=== PATIENT | male | born 1960 | race Caucasian/White ===

== ENCOUNTER 2016-05-10 01:16 | Inpatient (IN) | payer OTHER, MEDICAID ==
[~2016-05-10] VITALS: Ht 170.2 cm; Wt 90.7 kg
[2016-05-10 01:16] VITALS: BP 117/71
[~2016-05-10 01:16] MED LIST: ACETAMINOPHEN650 M6 GT; ATIVAN0.5 MG GT; ATIVAN1 MG GT; CLINDAMYCIN PHO TP; DIAMOX250 MG GT; DITROPAN5 MG GT; DULCOLAX10 MG RC; FLEET ENEMA118 ML RC; MULTIVITAMIN1 TA1 GT; NEXIUM40 MG GT; PROTONIX40 MG GT; SYNTHROID0.05 MG GT; VITAMIN C500 M8 GT; VITAMIN D32000 I1 GT; ZOFRAN ODT4 MG GT; [UNRECOGNIZED DRUG - OTHER] TP
--- NOTE | 2016-05-10 01:16 | NUR ---
DONTA DASILVA. TAKEN TO BED 2. BOARD AND CARE STAFF MEMBER AT PATIENT BEDSIDE.
[2016-05-10] MEDS ORDERED: ACETAMINOPHEN 160 MG/5 ML UDC ONE (01:27)
--- NOTE | 2016-05-10 01:31 | NUR ---
PATIENT KIRBY FROM [facility] PRESENTS TO ED WITH FEVER OF 103.1 AND LABORED BREATHING . PT CAREGIVER STATES HE FOUND PT IN ROOM WITH LABORED BREATHING AND FEVER BUT GAVE NO MEDS . DENIES N/V/D; SKIN IS PINK/WARM/DRY; AAOX4 WITH EVEN AND STEADY GAIT; LUNGS CLEAR BL AND BREATHING LABORED; HR EVEN AND REGULAR; PT DENIES ANY FEVER, CP, SOB, OR COUGH AT THIS TIME; PATIENT EXHIBITING PAIN OF 0/10 AT THIS TIME USING PIMENTEL-HERNANDEZ SCALE; VSS; PATIENT POSITIONED FOR COMFORT; HOB ELEVATED; BEDRAILS UP X2; BED DOWN. ER MD MADE AWARE OF PT STATUS. CAREGIVER AT BEDSIDE
--- NOTE | 2016-05-10 01:33 | NUR ---
Dr. Gonsales evaluating patient at bedside.
[2016-05-10] MEDS ORDERED: LEVOFLOXACIN 500 MG/D5W PREMIX 100 ML IV ONE (01:45)
[2016-05-10] MEDS ORDERED: NACL 0.9% 1,000 ML IV ONE ×2 (01:45→02:30)
--- NOTE | 2016-05-10 02:11 | NUR ---
X-Ray at bedside.
[2016-05-10] MEDS ORDERED: cefTRIAXone 1,000 MG VIAL ONE (02:25)
--- NOTE | 2016-05-10 03:21 | NUR ---
Patient appears to be resting comfortably in bed. Vital Signs within normal limits. Respirations even and unlabored.
[2016-05-10] MEDS ORDERED: NACL 0.9% 1,000 ML IV SCH ×3 (05:42→09:20)
[2016-05-10] MEDS ORDERED: NACL 0.9% 1,500 ML IV SCH (05:45)
[2016-05-10] MEDS ORDERED: HYDROcodone/APAP 5/325 MG 1 TAB TAB GT PRN (05:45)
[2016-05-10] MEDS ORDERED: BISACODYL 10 MG SUPP RC PRN (05:45)
[2016-05-10] MEDS ORDERED: SODIUM PHOSPHATE 118 ML ENEM RC PRN (05:45)
[2016-05-10] MEDS ORDERED: ONDANSETRON 4 MG/2 ML VIAL IVP PRN (05:45)
--- NOTE | 2016-05-10 06:04 | NUR ---
SPOKE WITH BLANCA PURDY AT PT BOARD AND CARE. INDIVIDUAL STATED THAT PT IS A FULL CODE. NOTIFIED ME THAT PT IS PASSING STONES AT THIS TIME. HELADIO NOTIFIED.
--- NOTE | 2016-05-10 06:08 | NUR ---
Patient will be admitted to care of DR. YAO. Admited to TELE. Will go to room 118. Belongings list completed. Report to CHRIS MUNOZ.
--- NOTE | 2016-05-10 07:00 | NUR ---
PT HEARD GRUNTING IN ROOM. O2 SATS FLUCTUATING FROM 77% AND GOES BACK UP TO 100%. ERMD NOTIFIED. ABG'S ORDERED AND ERMD TO SEE PT.
--- NOTE | 2016-05-10 07:03 | NUR ---
RT AT PT BEDSIDE
--- NOTE | 2016-05-10 07:14 | NUR ---
X-Ray at bedside.
--- NOTE | 2016-05-10 07:16 | NUR ---
VS STABALIZED. Patient appears to be resting comfortably in bed. Respirations even and unlabored.
--- NOTE | 2016-05-10 07:17 | NUR ---
RT AT BEDSIDE.
--- NOTE | 2016-05-10 07:17 | NUR ---
Pt report given to CHRIS MARTIN. Transfer of care at this time.
[2016-05-10 07:21] VITALS: BP 107/85
--- NOTE | 2016-05-10 07:21 | NUR ---
PT PLACED ON BIPAP BY REQUEST OF ER PHYSICIAN. BIPAP SETTINGS 12/5, R12 AND FIO2 40%. PROTECTA-GEL PLACED UNDER MASK TO PREVENT SKIN BREAKDOWN. BIPAP ALARM ARE ON AND FUNCTIONING. AMBU BAG IS BEDSIDE. PT TOLERATING WELL AT THIS TIME. WILL CONTINUE TO MONITOR.
--- NOTE | 2016-05-10 07:37 | NUR ---
GAVE REPORT TO CURTIS PEREZ, ON UPDATED VS & BIPAP SETTINGS. PT STABLE AT THIS TIME.
--- NOTE | 2016-05-10 07:39 | NUR ---
Patient will be admitted to care of DR. LOGAN. Admited to TELEMETRY. Will go to room 123. Belongings list completed. Report to CHRIS ACEVEDO.
--- NOTE | 2016-05-10 08:00 | NUR ---
RECEIVED REPORT FROM THE SHANK TURNER NURSE, WHO RECEIVED REPORT FROM THE ER NURSE. PT IS NOW ON THE MST FLOOR. PT IS AOX0. PT IS A WHITE 55Y/O MALE. PT IS AWAKE, NOT ORIENTED AND NOT VERBAL. HX OF MR. V/S WITHIN NORMAL RANGE. PT HAS 2 IV SITES L HAND 22G SL AND R HAND 18G SL. CHECKED HIS SKIN, SKIN INTACT. PLACED TELE BOX ON. NOTED THE GTUBE. AND A GILL CATH. PLACED YELLOW SOCKS, AND PLACED ALLERGY BAND AND FALL RISK BAND. UPDATED BOARD. RESPIRATORY THERAPIST IS HERE, TO MONITOR BI PAP. DR. LOGAN ORDERED ANOTHER L OF NS BOLUS. I USED THE R HAND FOR THE FLUIDS. NOTHING ELSE IN THE ORDERS. WILL CONTINUE TO MONITOR PT AND CONTINUE ADMISSION PROCESS.
[2016-05-10 09:00] VITALS: BP 126/60
[2016-05-10] MEDS ORDERED: NON-FORMULARY ITEM (Cholecalciferol (Vitamin D3) (Vitamin D3) 2,000 IU) GT SCH (09:00)
[2016-05-10] MEDS ORDERED: NON-FORMULARY ITEM (Esomeprazole Magnesium* (Nexium*) 40 MG) GT SCH (09:00)
[2016-05-10] MEDS ORDERED: PANTOPRAZOLE 40 MG TABEC PO SCH (09:00)
[2016-05-10] MEDS: NACL 0.9% 1,000 ML IV SCH ×3 (09:20→23:42)
--- NOTE | 2016-05-10 09:25 | NUR ---
RADIOLOGY TOOK PT TO HAVE CT OF ABD/PELVIS. TICKET TO RIDE IN CHART.
--- NOTE | 2016-05-10 10:01 | NUR ---
PT RETURNED FROM CT WITHOUT INCIDENT, PT PLACED BACK ON BIPAP WITH DOCUMENTED SETTINGS. PT NOT SOB AT THIS TIME. BIPAP ALARMS REMAIN ON AND FUNCTIONING. BIPAP IS PLUGGED INTO RED OUTLET. WILL CONTINUE TO MONITOR.
[2016-05-10] MEDS: ASCORBIC ACID 500 MG TAB GT SCH (10:02)
[2016-05-10] MEDS: CHOLECALCIFEROL 1,000 IU TAB GT SCH (10:02)
[2016-05-10] MEDS: OXYBUTYNIN 5 MG TAB GT SCH (10:03)
[2016-05-10] MEDS: LANSOPRAZOLE 30 MG CAPDR GT SCH (10:03)
[2016-05-10] MEDS: LORazepam 0.5 MG TAB GT SCH (10:03)
[2016-05-10] MEDS: LEVOTHYROXINE 0.05 MG TAB GT SCH (10:03)
[2016-05-10] MEDS: acetaZOLAMIDE 250 MG TAB GT SCH ×2 (10:06→20:20)
[2016-05-10] MEDS: ACETAMINOPHEN 325 MG TAB GT PRN ×2 (10:06→20:20)
--- NOTE | 2016-05-10 10:30 | NUR ---
CAREGIVER IS HERE. PAGED DR. LOGAN TO LET HIM KNOW SHE IS HERE TO GIVE HIM MORE INFORMATION.
--- NOTE | 2016-05-10 11:19 | NUR ---
BIPAP CHECK COMPLETED. PT NOT IN ANY DISTRESS. WILL CONTINUE TO MONITOR.
[2016-05-10 12:00] VITALS: BP 94/51
--- NOTE | 2016-05-10 12:00 | NUR ---
PT IS SLEEPING BUT WITH IS L HAND, TRYING TO TAKE HIS BIPAP OFF. PUT A SOCK ON HIS HAND. NOT WORKING. TRIED PUTTING HIS HAND AND WRAPPING IT AROUND WITH HIS SHEETS.. NOT WORKING. PLACED A SOFT MITTEN. HE IS DOING BETTER.
--- NOTE | 2016-05-10 14:11 | NUR ---
PT'S CAREGIVER HERE, CAN SIGN THE CONSENT FOR STAT NEPHROSTOMY TUBE PLACEMENT. CONSENT PRINTED AND SIGNED BY CAREGIVER. WILL KEEP IN CHART FOR TO SIGN.
--- NOTE | 2016-05-10 14:23 | NUR ---
ERIN FROM RADIOLOGY CALLED. PROCEDURE TO BE DONE AROUND 5PM BY DR. ARTHUR TINAJERO, RADIOLOGIST. ASKED ABOUT PT, INR, PTT. DONE ALREADY IN CHART. WILL CONTINUE TO MONITORING HIM. CAREGIVER AT BEDSIDE.
[2016-05-10] MEDS ORDERED: ALBUTEROL SULFATE/IPRATROPIU 3 ML SOL IH PRN (14:55)
[2016-05-10] MEDS ORDERED: LORazepam 2 MG/ML VIAL IVP SCH (15:00)
--- NOTE | 2016-05-10 15:05 | NUR ---
PT WAS MORE AGITATED, TRYING TO KNOCK THE MASK OFF HIS FACE EVEN WITH THE MITTEN. SPOKE WITH DR. GOEL ASKED HER FOR ANOTHER ATIVAN. SHE ORDERED 1MG. GAVE PT TO CALM HIM. RT IS HERE TO GET HIS ABG'S. IF IT'S GOOD, HE CAN HAVE HIS BIPAP MASK OFF. WE WILL FURTHER MONITOR PT.
--- NOTE | 2016-05-10 15:40 | NUR ---
ABG RESULTS GIVEN TO ,REQUESTS PT BE TAKEN OFF OF BIPAP. WILL CONTINUE TO MONITOR.
[2016-05-10] MEDS: ALBUTEROL SULFATE/IPRATROPIU 3 ML SOL IH SCH ×3 (15:50→23:10)
--- NOTE | 2016-05-10 15:51 | NUR ---
PT TAKEN OFF OF BIPAP PLACED ON 35% VENTURI MASK. PT NOT SOB AND NOT IN RESPIRATORY DISTRESS. AND NURSE CURTIS AWARE. WILL CONTINUE TO MONITOR.
[2016-05-10 16:00] VITALS: BP 127/82
[2016-05-10] MEDS ORDERED: fentaNYL 0.05 MG/ML VIAL ONE (16:48)
[2016-05-10] MEDS ORDERED: MIDAZOLAM 2 MG/2 ML VIAL ONE (16:48)
--- NOTE | 2016-05-10 18:15 | NUR ---
RETURNED TO THE FLOOR. PT TOLERATED WELL. CAME BACK WITH A NEPHROSTOMY TUBE ON THE SIDE WITH A BAG FILLED WITH SANGRINOUS FLUID. PT V/S ARE STABLE. PER DR. TINAJERO, FLUSH THE TUBE WITH 10CC NS Q2H X 24 H. THE IV WAS PULLED OUT ON THE TABLE SO NEW IV R FOOT 22G. Addendum: 05/10/16 at 1936 by Yessica Salcedo RN V/S 99.1F, 141/59, 85, 98%
--- NOTE | 2016-05-10 18:30 | NUR ---
FLUSHED 10CC OF NS INTO THE NEPHROSTOMY TUBE.
--- NOTE | 2016-05-10 18:45 | NUR ---
PT V/S STABLE: 123/94; 101; 99%; 99.1F PULLED HIM UP IN BED. REORGANIZED HIS ROOM, RID OF CLUTTER. WILL CONTINUE TO MONITOR PT.
--- NOTE | 2016-05-10 19:10 | NUR ---
ENDORSED PT TO THE WASTE WATER OR WATER PLANT OPERATOR NURSE AT BEDSIDE FOR CONTINUITY OF CARE. PT IS STABLE. Addendum: 05/10/16 at 1927 by Yessica Salcedo RN NEPHROSTOMY TUBE BAG 250ML OF FLUID.
--- NOTE | 2016-05-10 19:30 | NUR ---
RECEIVED REPORT FROM CHRIS ACEVEDO, AT BEDSIDE. INITIAL ASSESSMENT AND BODY CHECK DONE. PATIENT AAO X O, LETHARGIC/APHASIC, ONLY RESPONSIVE TO LIGHT PAIN, UNABLE TO FOLLOW COMMAND NOR MAKE NEEDS KNOWN AND ON BEDBOUND. PATIENT CURRENTLY LYING DOWN ON THE BED. NOTED SINUS TACHY, 132 /FEVER 101.6 F AND ELEVATED RESPIRATORY RATE, 32. RT AT BEDSIDE TO APPLY BIPAP. SKIN WARM/DRY TO TOUCH WITH NORMAL COLOR AND INTACT. GILL CATHETER PATENT/INTACT AND DRAINING TO GRAVITY. LT NEPHROSTOMY TUBE IN PLACE/PATENT AND STILL DRAINING WITH BRIGHT/RED COLOR. DISCUSSED PLAN OF CARE, PAIN MANAGEMENT AND MEDICATION REGIMEN WITH PATIENT, BUT PATIENT UNABLE TO COMPREHEND. PLACED PATIENT ON SAFETY/FALL/ASPIRATION/PRESSURE ULCER PRECAUTIONS AND CONTACT ISOLATION. WILL CONTINUE TO MONITOR AND CALL LIGHT LEFT WITHIN REACH.
[2016-05-10 20:00] VITALS: BP 143/84
--- NOTE | 2016-05-10 20:08 | NUR ---
2000 PT PLACED BACK ON BIPAP. PT HAS HIGH RR AND HR
[2016-05-10] MEDS: MORPHINE SULFATE 2 MG/ML SYR IVP PRN (20:21)
[2016-05-10] MEDS: LORazepam 1 MG TAB GT SCH (20:26)
--- NOTE | 2016-05-10 20:30 | NUR ---
VERIFIED G-TUBE PLACEMENT AND OBTAINED 0 ML RESIDUAL. THEN, ADMINISTERED ROUTINE AND PRN MEDICATIONS FOR PAIN, FEVER MD'S ORDERED WITH COOLING MEASURE APPLIED. FLUSHED NEPHROSTOMY TUBE WITH 10 ML NS Q 2 HOURS. WILL CONTINUE TO MONITOR.
--- NOTE | 2016-05-10 22:30 | NUR ---
FLUSHED NEPHROSTOMY TUBE WITH 10 ML NS. TUBE REMAINS IN PLACE/PATENT. REPOSITION FOR COMFORT/PRESSURE RELIEF AND PATIENT TOLERATE WELL. WILL CONTINUE TO MONITOR.
--- NOTE | 2016-05-10 23:10 | NUR ---
PT WAS TAKE OFF FROM BIPAP, HE STARTING TO BE AGITATED AND HIS SAT ARE 98% AND HR 108 FROM 137
[2016-05-11] VITALS: BP 102/65
--- NOTE | 2016-05-11 00:22 | NUR ---
PATIENT'S CONDITION WAS IMPROVED: HR 123 BPM AND AFEBRILE. NO S/S OF DISTRESS OR SOB NOTED. FLUSHED NEPHROSTOMY TUBE WITH 10 ML NS. TUBE REMAINS IN PLACE/PATENT AND DRAINING WITH SANGUINOUS DRAINAGE. WILL CONTINUE TO MONITOR WITH COOLING MEASURE.
[2016-05-11] MEDS ORDERED: LEVOFLOXACIN 500 MG/D5W PREMIX 100 ML IV SCH (01:00)
--- NOTE | 2016-05-11 02:30 | NUR ---
FLUSHED LEFT NEPHROSTOMY TUBE WITH 10 ML NS AND OBTAINED SEROSANGUINEOUS DRAINAGE BACK
[2016-05-11 04:00] VITALS: BP 97/57
--- NOTE | 2016-05-11 04:30 | NUR ---
V/S TURN BACK TO WNL AND AFEBRILE. NOTED PATIENT HAD ONE LARGE BM. AM CARE GIVEN WITH LINENS/GOWN CHANGED AND REPOSITION/OFFLOADED PRESSURE AREAS. PATIENT TOLERATED WELL. WILL CONTINUE TO MONITOR.
[2016-05-11] MEDS: ALBUTEROL SULFATE/IPRATROPIU 3 ML SOL IH SCH ×5 (04:44→19:50)
[2016-05-11] MEDS: NACL 0.9% 1,000 ML IV SCH ×3 (05:20→18:50)
--- NOTE | 2016-05-11 06:30 | NUR ---
FLUSHED LEFT NEPHROSTOMY TUBE WITH 10 ML NS AND OBTAINED SEROUS DRAINAGE BACK.
--- NOTE | 2016-05-11 06:55 | NUR ---
RECEIVED PT ON 4L NASAL CANNULA SPO2 99% WILL TITRATE FIO2. B.S CLEAR BILATERALLY. PT NOT SOB AND NOT IN RESPIRATORY DISTRESS AT THIS TIME, BIPAP IS BEDSIDE BUT NOT INDICATED AT THIS TIME. WILL CONTINUE TO MONITOR.
--- NOTE | 2016-05-11 07:20 | NUR ---
ENDORSED PLAN OF CARE TO GINGER. CHRIS AT BEDSIDE. PATIENT REMAINED IN STABLE CONDITION AND NO APPARENT DISTRESS NOTED.
--- NOTE | 2016-05-11 07:21 | NUR ---
RECEIVED REPORT FROM CHRIS MUNOZ. PT IS RESTING ON BED, AWAKE, PT IS APHASIC, UNABLE TO FOLLOW SIMPLE COMMANDS, SKIN INTACT, IV ON RIGHT HAND PATENT AND INTACT INFUSING FLUID WELL, ON O2 4L NC, G- TUBE IN PLACE, GILL CATHETER IN PLACE DRAINING CLEAR YELLOW URINE, NEPHROSTOMY TUBE ON LEFT FLANK NOTED DRAINING CLEAR YELLOW URINE, DISCUSSED PLAN OF CARE, SAFETY/FALL/SEIZURE PRECAUTION ENFORCED, CALL LIGHT WITHIN REACH, WILL CONTINUE TO MONITOR.
[2016-05-11 08:00] VITALS: BP 104/62
[2016-05-11] MEDS: LORazepam 0.5 MG TAB GT SCH (09:00)
[2016-05-11] MEDS: OXYBUTYNIN 5 MG TAB GT SCH (09:02)
[2016-05-11] MEDS: LEVOTHYROXINE 0.05 MG TAB GT SCH (09:02)
[2016-05-11] MEDS: acetaZOLAMIDE 250 MG TAB GT SCH ×2 (09:02→20:14)
[2016-05-11] MEDS: LANSOPRAZOLE 30 MG CAPDR GT SCH (09:02)
[2016-05-11] MEDS: ASCORBIC ACID 500 MG TAB GT SCH (09:03)
[2016-05-11] MEDS: CHOLECALCIFEROL 1,000 IU TAB GT SCH (09:03)
--- NOTE | 2016-05-11 09:04 | NUR ---
DUE MEDS GIVEN, PT TOLERATED WELL, 0 ML RESIDUAL, ATIVAN HELD, PT IS CALM RESTING ON BED. CALL LIGHT WITHIN REACH, WILL CONTINUE TO MONITOR.
--- NOTE | 2016-05-11 10:45 | NUR ---
WOUND CARE EVALUATION NOTES: REASON FOR EVALUATION: LOW ARGELIA - 12 COMPLETE SKIN ASSESSMENT DONE ON THIS 55 Y/O MALE PATIENT FROM [facility] TO [facility], WITH INITIAL DIAGNOSIS OF URINARY TRACT INFECTION AND DEHYDRATION. PAST MEDICAL HISTORY INCLUDE SEVERE DEVELOPMENTAL DELAY, APHASIA, SEIZURE, HYPOTHYROIDISM AND BIPOLAR DISORDER. ALL ABOVE INFORMATION WAS OBTAINED FROM THE ADMISSION H&P. LABS ARE WBC 15.1, H/H 10.8/33.8, GLUCOSE 110, ALBUMIN 2.3, PT/INR 11.8/1.2 AND PTT 33.0. CURRENT MEDS INCLUDE LEVOFLOXACIN, HEPARIN, ATIVAN, ASCORBIC ACID, MORPHINE AND NORCO. PATIENT IS NON VERBAL, MUMBLES WORDS AT TIMES. SKIN WARM TO TOUCH WNL, TOENAILS ARE SLIGHTLY THICKENED, NO EDEMA, WITH HAIR GROWTH AND +3 BILATERAL PEDAL PULSES. FC 14FR PATENT AND INTACT TO ADINA COLORED URINE IN MODERATE AMOUNT. RIGHT ARM PERIPHERAL IV PATENT AND INTACT. ON 02 PER NASAL CANNULA. BLE ARE CONTRACTED. LUQ G TUBE, NOTED TO CLAMPED AT THIS TIME. RIGHT NEPHROSTOMY TUBE NOTED. NEEDS MAX ASSISTANCE IN TURNING. INITIAL PLAN OF CARE AND PRESSURE PREVENTIVE MEASURES DISCUSSED, UNABLE TO VERBALIZE UNDERSTANDING. WILL REINFORCE TEACHING. INTEGUMENTARY: BLANCHABLE REDNESS PERIAREA AND SCROTAL AREA RECOMMENDATIONS: -CLEANSE PERIAREA TO SCROTAL AREA WITH MILD SOAP AND WATER, PAT DRY, APPLY HYDRAGUARD BIDWC AND PRN WITH SOILING. LEAVE OPEN TO AIR -TURN AND REPOSITION PATIENT Q2H -ASSESS AND MONITOR SKIN CONDITION DURING POSITION CHANGE, PLEASE PAY PARTICULAR ATTENTION TO SACRALCOCCYX, ELBOWS AND HEELS -OFFLOAD BILATERAL HEELS BY PLACING PILLOWS UNDER CALVES AT ALL TIMES (ONE PILLOWS EACH LEG), UNLESS OTHERWISE CONTRAINDICATED -PRESSURE REDISTRIBUTION SURFACE THERAPY. -KEEP SKIN CLEAN AND DRY AT ALL TIMES. RECOMMENDATIONS DISCUSSED WITH PRIMARY RN AND RESIDENT PHYSICIAN, DR BILLS WILL FOLLOW PATIENT Q 7 DAYS AND PRN. PLEASE CONTACT [facility] FOR ANY CONCERNS, QUESTIONS AND CHANGES IN WOUND CONDITION.
--- NOTE | 2016-05-11 11:18 | NUR ---
PATIENT HAS BEEN SCREENED AND CATEGORIZED HIGH NUTRITION RISK. PATIENT WILL BE SEEN WITHIN 1-2 DAYS OF ADMISSION. 05/11/16-05/12/[address]
--- NOTE | 2016-05-11 11:25 | NUR ---
DR DOWNS IN THE NURSES' STATION
--- NOTE | 2016-05-11 11:28 | NUR ---
PER DR BILLS, TUBE FEEDING HELD FOR NOW, WAITING FOR UROLOGY PROCEDURE
[2016-05-11 12:00] VITALS: BP 104/61
--- NOTE | 2016-05-11 12:38 | NUR ---
CAREGIVER, CAMILLA, VISITED THE PT, UPDATE GIVEN REGARDING PT'S CONDITION.
[2016-05-11] MEDS ORDERED: HYDRAGUARD CREAM TP PRN (12:55)
--- NOTE | 2016-05-11 13:12 | NUR ---
DR HILLMAN AT NURSES STATION.
[2016-05-11] MEDS: HYDRAGUARD CREAM TP SCH (13:40)
[2016-05-11] MEDS ORDERED: GENTAMICIN PER PHARMACY MC PRN (14:30)
--- NOTE | 2016-05-11 14:42 | NUR ---
05/11/16 RD INITIAL ASSESSMENT COMPLETED PLEASE REFER TO NUTRITION ASSESSMENT UNDER CARE ACTIVITY FOR ESTIMATED NUTRITIONAL NEEDS. RD RECOMMENDATIONS: 1. CONTINUE NPO MEDICALLY NECESSARY PER MD 2. WHEN MEDICALLY APPROPRIATE CONSIDER NUTRITION SUPPORT TO NUTREN PULMONARY AT 20 ML/HR AND ADVANCE TOLERATED 10 ML Q6H TO GOAL OF 60 ML/HR --AT GOAL, NUTRITION SUPPORT PROVIDES 1440 ML TOTAL VOLUME, 2160 KCAL, 98 GM PROTEIN TO MEET 100% OF PT ESTIMATED KCAL NEEDS AND 97% OF PT ESTIMATED PROTEIN NEEDS. 3. RD WILL F/U 2-3 DAYS; HIGH RISK. HARJIT GONZALEZ RD
[2016-05-11 16:00] VITALS: BP 116/58
[2016-05-11] MEDS: ACETAMINOPHEN 325 MG TAB GT PRN (16:04)
--- NOTE | 2016-05-11 16:04 | NUR ---
COOLING MEASURES DONE AND TYLENOL GIVEN DUE TO INCREASED TEMPERATURE. NO S/S OF RESPIRATORY DISTRESS. ALL NEEDS MET AT THIS TIME, WILL CONTINUE TO MONITOR.
[2016-05-11] MEDS: GENTAMICIN 150 MG in DEXTROSE 5% 100 ML IV SCH (16:07)
--- NOTE | 2016-05-11 17:00 | NUR ---
TUBE FEEDING STARTED, GTUBE INTACT AND INFUSING WELL. PT TOLERATED WELL.
[2016-05-11] MEDS: AMPICILLIN 500 MG in NACL 0.9% 50 ML IV SCH ×2 (17:11→23:55)
--- NOTE | 2016-05-11 17:20 | NUR ---
TEMPERATURE RECHECKED-- 99F. ALL NEEDS MET AT THIS TIME. RECHECKER AT BEDSIDE. KEPT PT CLEAN AND DRY. WILL CONTINUE TO MONITOR.
--- NOTE | 2016-05-11 19:25 | NUR ---
RECEIVED PT IN STABLE CONDITION FROM CHRIS BATRES. NO SOB, NO SIGNS OF DISTRESS. PT ON 3L O2 NC. VS STABLE. FLACC 0. PT IS AOX1, OPENS HIS EYES WHEN HIS NAME IS CALLED. PT IS BEDBOUND WITH SEVERE WEAKNESS TO BUE AND BLE. SKIN IS INTACT. PT WITH G-TUBE. PT TOLERATING TUBE FEEDING WELL. 30ML RESIDUAL NOTED. PT WITH LT NEPHROSTOMY, BROWN SEDIMENT NOTED IN DRAINAGE BAG. PT WITH GILL DRAINING TO GRAVITY. IV TO RT HAND 22G PATENT, ASYMPTOMATIC, INTACT, IVF RUNNING. SEIZURE PRECAUTIONS IN PLACE. PT ON CONTACT PRECAUTION FOR HX MRSA WOUND. PLAN OF CARE DISCUSSED WITH PT. SAFETY MEASURES IN PLACE. CALL LIGHT WITHIN REACH. WILL CONTINUE TO MONITOR.
--- NOTE | 2016-05-11 19:30 | NUR ---
ENDORSED PT TO CHRIS SALEEM FOR CONTINUITY OF CARE. PT IS STABLE AT THIS TIME.
[2016-05-11 20:00] VITALS: BP 120/66
[2016-05-11] MEDS: LORazepam 1 MG TAB GT SCH (20:14)
--- NOTE | 2016-05-11 20:15 | NUR ---
PT TOLERATED DUE MEDS WELL BY G-TUBE. NO SOB, NO SIGNS OF DISTRESS, PT ON 3L O2 NC. IV SITE ASYMPTOMATIC, INTACT, PATENT, IVF RUNNING. FLACC 0. PLAN OF CARE DISCUSSED WITH PT. SAFETY MEASURES IN PLACE. CALL LIGHT WITHIN REACH. WILL CONTINUE TO MONITOR.
--- NOTE | 2016-05-11 20:55 | NUR ---
PLACED PT ON A WOUND CARE BED. CLEANED AND TURNED PT, TOLERATED WELL. PT WITH SMALL FORMED BM. NO SOB, NO SIGNS OF DISTRESS, PT ON 3L O2 NC. IV SITE ASYMPTOMATIC, INTACT, PATENT, IVF RUNNING. TUBE FEEDING RUNNING WELL. FLACC 0. PLAN OF CARE DISCUSSED WITH PT. SAFETY MEASURES IN PLACE. CALL LIGHT WITHIN REACH. WILL CONTINUE TO MONITOR.
--- NOTE | 2016-05-11 22:02 | NUR ---
PT ASLEEP IN BED, NO SOB, NO SIGNS OF DISTRESS. PT ON 3L O2 NC. IV SITE ASYMPTOMATIC, INTACT, PATENT, IVF RUNNING. PT TOLERATING TUBE FEEDING WELL. PLAN OF CARE DISCUSSED WITH PT. SAFETY MEASURES IN PLACE. CALL LIGHT WITHIN REACH. WILL CONTINUE TO MONITOR.
--- NOTE | 2016-05-11 23:55 | NUR ---
VS STABLE. NO SOB, NO SIGNS OF DISTRESS. PT ON 3L O2 NC. SUCTIONED PT ORALLY AND PROVIDED ORAL CARE, PT TOLERATED WELL. IV SITE ASYMPTOMATIC, INTACT, PATENT, IVF RUNNING. PT TOLERATING TUBE FEEDING WELL, NO RESIDUAL NOTED, INCREASED RATE TO 40 ML/HR. EMPTIED 450 ML FROM NEPHROSTOMY BAG. PLAN OF CARE DISCUSSED WITH PT. SAFETY MEASURES IN PLACE. CALL LIGHT WITHIN REACH. WILL CONTINUE TO MONITOR.
[2016-05-12] VITALS: BP 124/71
[2016-05-12] MEDS: ALBUTEROL SULFATE/IPRATROPIU 3 ML SOL IH SCH ×7 (00:10→22:58)
[2016-05-12] MEDS: GENTAMICIN 150 MG in DEXTROSE 5% 100 ML IV SCH ×3 (00:37→16:36)
[2016-05-12] MEDS: MORPHINE SULFATE 2 MG/ML SYR IVP PRN ×2 (00:37→10:04)
[2016-05-12] MEDS: HYDRAGUARD CREAM TP SCH ×2 (00:38→12:35)
--- NOTE | 2016-05-12 02:07 | NUR ---
PT ASLEEP IN BED, NO SOB, NO SIGNS OF DISTRESS. PT ON 3L O2 NC. IV SITE ASYMPTOMATIC, INTACT, PATENT, IVF RUNNING. PT TOLERATING TUBE FEEDING WELL. SAFETY MEASURES IN PLACE. CALL LIGHT WITHIN REACH. WILL CONTINUE TO MONITOR.
[2016-05-12] MEDS: NACL 0.9% 1,000 ML IV SCH ×4 (03:26→22:09)
[2016-05-12 04:00] VITALS: BP 114/68
--- NOTE | 2016-05-12 04:00 | NUR ---
VS STABLE. NO SOB, NO SIGNS OF DISTRESS. PT ON 3L O2 NC. IV SITE ASYMPTOMATIC, INTACT, PATENT, IVF RUNNING. PT TOLERATING TUBE FEEDING WELL, NO RESIDUAL NOTED, INCREASED RATE TO 50 ML/HR. EMPTIED 400 ML FROM NEPHROSTOMY BAG. PLAN OF CARE DISCUSSED WITH PT. SAFETY MEASURES IN PLACE. CALL LIGHT WITHIN REACH. WILL CONTINUE TO MONITOR.
[2016-05-12] MEDS: AMPICILLIN 500 MG in NACL 0.9% 50 ML IV SCH ×3 (05:15→17:40)
--- NOTE | 2016-05-12 07:06 | NUR ---
ENDORSED PT IN STABLE CONDITION TO CHRIS BATRES. ALL NEEDS HAVE BEEN MET AT THIS TIME.
--- NOTE | 2016-05-12 07:08 | NUR ---
PT RECEIVED FROM CHRIS CHAUHAN ASLEEP LYING ON BED BUT EASILY AWAKENED. NO S/S OF RESPIRATORY DISTRESS OR DISCOMFORT, PT ON O2 2LPM VIA NC. WITH IV ACCESS AT RIGHT HAND 322G INFUSING FLUIDS WELL. WITH GTUBE INFUSING NUTREN PULMONARY WELL. WITH NEPHROSTOMY AT LEFT FLANK AND GILL CATHETER DRAINING YELLOW URINE. SAFETY PRECAUTIONS ENFORCED. CALL LIGHT WITHIN REACH, WILL CONTINUE TO MONITOR. Addendum: 05/12/16 at 1921 by Diana Pedraza RN IV 22G
[2016-05-12 08:00] VITALS: BP 110/63
[2016-05-12] MEDS: LANSOPRAZOLE 30 MG CAPDR GT SCH (08:09)
[2016-05-12] MEDS: CHOLECALCIFEROL 1,000 IU TAB GT SCH (08:09)
[2016-05-12] MEDS: LEVOTHYROXINE 0.05 MG TAB GT SCH (08:09)
[2016-05-12] MEDS: ASCORBIC ACID 500 MG TAB GT SCH (08:10)
[2016-05-12] MEDS: OXYBUTYNIN 5 MG TAB GT SCH (08:10)
--- NOTE | 2016-05-12 08:11 | NUR ---
DUE MEDS GIVEN, PT TOLERATED WELL. ALL NEEDS MET AT THIS TIME. CALL LIGHT WITHIN REACH, WILL CONTINUE TO MONITOR.
[2016-05-12] MEDS: LORazepam 0.5 MG TAB GT SCH (08:25)
[2016-05-12] MEDS: acetaZOLAMIDE 250 MG TAB GT SCH ×2 (08:30→20:23)
[2016-05-12] MEDS ORDERED: NACL 0.9% 500 ML IV SCH ×2 (08:45→08:50)
--- NOTE | 2016-05-12 10:08 | NUR ---
PT TACHYCARDIC-- 125BPM, BP OF 132/59 WITH FLACC SCORE OF 7, MEDICATED WITH MORPHINE. KEPT CLEAN AND DRY. SAFETY PRECAUTIONS ENFORCED. WILL CONTINUE TO MONITOR
--- NOTE | 2016-05-12 11:08 | NUR ---
PT SLEEPING COMFORTABLY ON BED. NO S/S OF RESPIRATORY DISTRESS. KEPT CLEAN AND DRY, WILL CONTINUE TO MONITOR.
[2016-05-12 12:00] VITALS: BP 104/59
--- NOTE | 2016-05-12 12:17 | NUR ---
LG FROM [facility] CAME IN TO SEE THE PT
--- NOTE | 2016-05-12 14:30 | NUR ---
PT ASLEEP BUT EASILY AWAKEN. NO S/S OF RESPIRATORY DISCOMFORT. KEPT CLEAN AND DRY. CALL LIGHT WITHIN REACH, WILL CONTINUE TO MONITOR. .
[2016-05-12 16:00] VITALS: BP 114/66
[2016-05-12] MEDS: ACETAMINOPHEN 325 MG TAB GT PRN (16:36)
--- NOTE | 2016-05-12 16:42 | NUR ---
DUE MEDS AND PRN TYLENOL GIVEN, PT TOLERATED WELL, PT HAS ELEVATED TEMP OF 100.0, WILL REASSESS. NO S/S OF RESPIRATORY DISTRESS OR DISCOMFORT NOTED, CALL LIGHT WITHIN REACH, WILL CONTINUE TO MONITOR.
--- NOTE | 2016-05-12 17:45 | NUR ---
TEMPERATURE CHECKED, 98.5, PT IS SLEEPING COMFORTABLY, NO S/S OF RESPIRATORY DISTRESS OR DISCOMFORT NOTED, ALL NEEDS MET AT THIS TIME, CALL LIGHT WITHIN REACH, WILL CONTINUE TO MONITOR.
--- NOTE | 2016-05-12 19:13 | NUR ---
ENDORSED PT TO CHRIS SALEEM IN STABLE CONDITION FOR CONTINUITY OF CARE.
--- NOTE | 2016-05-12 19:14 | NUR ---
RECEIVED PT IN STABLE CONDITION FROM CHRIS BATRES. NO SOB, NO SIGNS OF DISTRESS. PT ON COOLING MEASURES, PT FEBRILE EARLIER TODAY, TEMP WNL AT THIS TIME. PT ON 3L O2 NC. VS STABLE. FLACC 0. PT IS AO X1, OPENS HIS EYES WHEN HIS NAME IS CALLED. PT IS BEDBOUND WITH SEVERE WEAKNESS TO BUE AND BLE. SKIN IS INTACT. PT WITH G-TUBE. PT TOLERATING TUBE FEEDING WELL. NO RESIDUAL NOTED. PT WITH LT NEPHROSTOMY, BROWN SEDIMENT NOTED IN DRAINAGE BAG. PT WITH GILL DRAINING TO GRAVITY. IV TO RT HAND 22G PATENT, ASYMPTOMATIC, INTACT, IVF RUNNING. SEIZURE PRECAUTIONS IN PLACE. PT ON CONTACT PRECAUTION FOR HX MRSA WOUND. PLAN OF CARE DISCUSSED WITH PT. SAFETY MEASURES IN PLACE. CALL LIGHT WITHIN REACH. WILL CONTINUE TO MONITOR.
[2016-05-12 20:00] VITALS: BP 134/58
--- NOTE | 2016-05-12 20:00 | NUR ---
MD NICHOLSON TO SEE PT.
--- NOTE | 2016-05-12 20:15 | NUR ---
CNAS GAVE PT COLD BED BATH, CHANGED ALL LINENS, CLEANED AND TURNED PATIENT. PT TOLERATED WELL.
[2016-05-12] MEDS: LORazepam 1 MG TAB GT SCH (20:23)
--- NOTE | 2016-05-12 20:25 | NUR ---
PT TOLERATED DUE MEDS WELL BY G-TUBE. NO SOB, NO SIGNS OF DISTRESS, PT ON 3L O2 NC. IV SITE ASYMPTOMATIC, INTACT, PATENT, IVF RUNNING. FLACC 0. EMPTIED 300 ML FROM NEPHROSTOMY BAG. PLAN OF CARE DISCUSSED WITH PT. SAFETY MEASURES IN PLACE. CALL LIGHT WITHIN REACH. WILL CONTINUE TO MONITOR.
--- NOTE | 2016-05-12 22:04 | NUR ---
PT ASLEEP IN BED. NO SOB, NO SIGNS OF DISTRESS, PT ON 3L O2 NC. IV SITE ASYMPTOMATIC, INTACT, PATENT, IVF RUNNING. FLACC 0. SAFETY MEASURES IN PLACE. CALL LIGHT WITHIN REACH. WILL CONTINUE TO MONITOR.
[2016-05-13] VITALS (7 sets, daily range): BP systolic 101–142; BP diastolic 62–82
[2016-05-13] MEDS: AMPICILLIN 500 MG in NACL 0.9% 50 ML IV SCH ×2 (00:44→05:09)
--- NOTE | 2016-05-13 01:39 | NUR ---
SPOKE WITH BASSAM FROM LAB, BASSAM MADE AWARE THAT PTS GENTAMICIN TROUGH WAS NOT DRAWN AT 0000 PER MD ORDER, BASSAM STATED THAT CENTERPUNCHER WILL COME BY TO DRAW SOON SHE IS DONE IN ER.
[2016-05-13] MEDS: HYDRAGUARD CREAM TP SCH ×2 (01:43→13:09)
--- NOTE | 2016-05-13 01:54 | NUR ---
LAB HERE TO DRAW PTS GENTAMICIN TROUGH. PT TOLERATED WELL. NO SOB, NO SIGNS OF DISTRESS, PT ON 3L O2 NC. IV SITE ASYMPTOMATIC, INTACT, PATENT, IVF RUNNING. FLACC 0. LAB STATED THEY WILL BE BACK AROUND 0350 TO DRAW PEAK LEVEL. PLAN OF CARE DISCUSSED WITH PT. SAFETY MEASURES IN PLACE. CALL LIGHT WITHIN REACH. WILL CONTINUE TO MONITOR.
[2016-05-13] MEDS: GENTAMICIN 150 MG in DEXTROSE 5% 100 ML IV SCH ×2 (01:57→02:50)
[2016-05-13] MEDS: ALBUTEROL SULFATE/IPRATROPIU 3 ML SOL IH SCH ×6 (02:19→23:30)
[2016-05-13] MEDS: MORPHINE SULFATE 2 MG/ML SYR IVP PRN ×2 (02:51→09:44)
--- NOTE | 2016-05-13 03:55 | NUR ---
HR 118, OTHER VS STABLE. NO RESIDUAL NOTED IN G-TUBE. NO SOB, NO SIGNS OF DISTRESS, PT ON 3L O2 NC. IV SITE ASYMPTOMATIC, INTACT, PATENT, IVF RUNNING. FLACC 0. PLAN OF CARE DISCUSSED WITH PT. SAFETY MEASURES IN PLACE. CALL LIGHT WITHIN REACH. WILL CONTINUE TO MONITOR.
[2016-05-13] MEDS: NACL 0.9% 1,000 ML IV SCH ×3 (05:10→11:51)
--- NOTE | 2016-05-13 05:52 | NUR ---
PT ASLEEP IN BED. ON 3L O2 NC. NO SOB, NO SIGNS OF DISTRESS. IV SITE ASYMPTOMATIC, INTACT, PATENT, IVF RUNNING. FLACC 0. PLAN OF CARE DISCUSSED WITH PT. SAFETY MEASURES IN PLACE. CALL LIGHT WITHIN REACH. WILL CONTINUE TO MONITOR.
--- NOTE | 2016-05-13 07:14 | NUR ---
ENDORSED PT IN STABLE CONDITION TO JOHNNIE Lacy LVN. ALL NEEDS HAVE BEEN MET AT THIS TIME.
--- NOTE | 2016-05-13 07:20 | NUR ---
ASSUMED CONTINUITY OF CARE. NO SIGNS AND SYMPTOMS OF ACUTE DISTRESS NOTICED. INITIAL ASSESSMENT DONE. HOB ELEVATED. KEEP COMFORTABLE ON BED. SEIZURE AND FALL PRECAUTION APPLIED. CALL LIGHT WITHIN REACH.
--- NOTE | 2016-05-13 08:00 | NUR ---
RECEIVED REPORT FROM THE [employer] [facility]ANER NURSE, WHO RECEIVED REPORT FROM THE ER NURSE. PT IS NOW ON THE MST FLOOR. PT IS AOX0. PT IS A WHITE 55Y/O MALE. PT IS AWAKE, NOT ORIENTED AND NOT VERBAL. HX OF MR. V/S WITHIN NORMAL RANGE. PT HAS 2 IV SITES L HAND 22G SL AND R HAND 18G SL. CHECKED HIS SKIN, SKIN INTACT. PLACED TELE BOX ON. NOTED THE GTUBE. AND A GILL CATH. PLACED YELLOW SOCKS, AND PLACED ALLERGY BAND AND FALL RISK BAND. UPDATED BOARD. RESPIRATORY THERAPIST IS HERE, TO MONITOR BI PAP. DR. LOGAN ORDERED ANOTHER L OF NS BOLUS. I USED THE R HAND FOR THE FLUIDS. NOTHING ELSE IN THE ORDERS. WILL CONTINUE TO MONITOR PT AND CONTINUE ADMISSION PROCESS. Addendum: 05/13/16 at 1241 by Yessica Salcedo RN WRONG DATE. .
--- NOTE | 2016-05-13 08:00 | NUR ---
Patient's Plan of Care was discussed and reviewed with DATE PITTER: JOHNNIE Lacy
[2016-05-13] MEDS: CHOLECALCIFEROL 1,000 IU TAB GT SCH (08:36)
[2016-05-13] MEDS: LORazepam 0.5 MG TAB GT SCH (08:37)
[2016-05-13] MEDS: LANSOPRAZOLE 30 MG CAPDR GT SCH (08:37)
[2016-05-13] MEDS: LEVOTHYROXINE 0.05 MG TAB GT SCH (08:38)
[2016-05-13] MEDS: ASCORBIC ACID 500 MG TAB GT SCH (08:38)
[2016-05-13] MEDS: acetaZOLAMIDE 250 MG TAB GT SCH ×2 (08:38→21:30)
[2016-05-13] MEDS: OXYBUTYNIN 5 MG TAB GT SCH (08:38)
--- NOTE | 2016-05-13 10:41 | NUR ---
SS NOTE: I SPOKE WITH DISABILITY COUNSELOR [facility] REGARDING IV ABX AT THEIR FACILITY. SHE STATED THAT THEY ARE UNABLE TO DO IV ABX AT THE FACILITY BUT PT HAS BEEN TO [facility] BEFORE AND WOULD PREFER THAT PT GOES THERE IF POSSIBLE SINCE IT IS CLOSE TO PT'S HOME.
--- NOTE | 2016-05-13 10:55 | NUR ---
DR. NICHOLSON CAME, INFORMED OF PT. HIGH HEART RATE SINCE 0800 THIS MORNING UP TO NOW. NO ORDER RECEIVED.
[2016-05-13] MEDS ORDERED: GENTAMICIN 120 MG in DEXTROSE 5% 100 ML IV SCH (11:00)
--- NOTE | 2016-05-13 11:53 | NUR ---
IV ATB AND IVF CHANGED ORDERED. IV PATENT NO SX OF INFILTRATION. SICD RAILS UP
[2016-05-13] MEDS: ACETAMINOPHEN 325 MG TAB GT PRN (12:17)
--- NOTE | 2016-05-13 13:00 | NUR ---
IV ATB ADMINSITERED. NO SX OF INFILTRATION
--- NOTE | 2016-05-13 13:15 | NUR ---
TEMP 99.6 TEMPORAL SCAN. NO ACUTE DISTRESS NOTICED. KEEP COMFORTABLE ON BED. WILL MONITOR.
--- NOTE | 2016-05-13 13:20 | NUR ---
DR. DOWNS CAME, INFORMED OF FEVER 101.0 DEGREE FAHRENHEIT AT 1200 AND INCREASE HEART RATE DURING SHIFT.
--- NOTE | 2016-05-13 13:25 | NUR ---
PAGED RT -[place] REGARDING DR. DOWNS REQUEST FOR BREATHING TREATMENT AND ABG STAT ORDER.
[2016-05-13] MEDS ORDERED: NACL 0.45% 1,000 ML IV SCH (13:30)
--- NOTE | 2016-05-13 13:30 | NUR ---
TEMP 99.4 TEMPORAL SCAN, BP 111/56, HR 116, RESP 24, 02 SAT 96% AT 3L/MIN VIA NC. NO DISCOMFORT NOTICED. INFORMED DR. DOWNS AND DR. RAWLS OF LATEST VITALS SIGNS.
--- NOTE | 2016-05-13 13:39 | NUR ---
CALLED BILL FROM RADIOLOGY REGARDING DR. DOWNS ORDER FOR CXR STAT.
[2016-05-13] MEDS ORDERED: ALBUTEROL SULFATE/IPRATROPIU 3 ML SOL IH PRN (13:40)
--- NOTE | 2016-05-13 15:20 | NUR ---
RT DILLON CAME FOR PT. BREATHING TREATMENT. TOLERATED WELL. CONTINUE MONITORING.
[2016-05-13] MEDS ORDERED: FUROSEMIDE 40 MG/4 ML VIAL IVP SCH (16:20)
--- NOTE | 2016-05-13 19:25 | NUR ---
BEDSIDE REPORT GIVEN TO CHAVEZ CROW. IVF INFUSING WELL. IN STABLE CONDITION.
--- NOTE | 2016-05-13 19:30 | NUR ---
RECEIVED FROM AM RN IN BED WITH 02 AT 3 LPM/NC, GILL CATHETER IN PLACE, GT FEEDING INFUSING WITH NUTREN PULMO AT 60 ML/H WITH RESIDUAL OF 10 ML, HOB UP 30 DEGREES FOR ASPIRATION PRECAUTIONS,LEFT NEPHROSTOMY TUBE AND RIGHT HAND IVF #22 1/2 NS AT 100 ML/H. NEEDS WILL BE ANTICIPATED AND WILL BE MET. WILL BE TURNED Q2H. TOTAL CARE RT MENTALLY CHALLENGED. NONE VERBAL. NO REPORTED NAUSEA OR VOMITING DONE PER AM NURSE.
[2016-05-13] MEDS: SACCHAROMYCES 250 MG CAP PO SCH (21:15)
[2016-05-13] MEDS: CLINDAMYCIN 600 MG in DEXTROSE 5% 50 ML IV SCH (21:15)
[2016-05-13] MEDS: LORazepam 1 MG TAB GT SCH (21:16)
--- NOTE | 2016-05-13 22:06 | NUR ---
PT. TURNED TO SIDES WITH PILLOW SUPPORT TO PRESSURE AREAS. TURNED Q 2H. TOTAL CARE. NEEDS ANTICIPATED AND WILL BE MET. HOB UP AT 30 DEGREES FOR ASPIRATION PRECAUTIONS. NO N/V NOTED AT THIS TIME. FLACC 0- TELEMETRY MONITORING.
--- NOTE | 2016-05-13 23:02 | NUR ---
FIND PT ON DISTRESS, BREATHING RR 40 AND DH OVER 139, AND PLACED HIM IN BIPAP, MED NEB CYNDI ON LINE, SAT NORMAL , AND AFTER 15 MIN ON BIPAP, HE [id number] TO IMPROVED.
--- NOTE | 2016-05-13 23:33 | NUR ---
RESPIRATORY THERAPIST IN HERE AND DECIDED TO PUT PT. ON BIPAP FOR THE NIGHT. NEEDS WILL BE ANTICIPATED AND MET. TURNED TO SIDES Q 2H. PT. MEDICATED WITH NORCO PER GT AT THIS TIME RT RESTLESS. BP 128/76.
[2016-05-14] VITALS (8 sets, daily range): BP systolic 94–138; BP diastolic 61–80
--- NOTE | 2016-05-14 00:44 | NUR ---
PT. SUCTIONED AND MOUTH CLEANED AT THIS TIME. TELEMETRY MONITORING. ON BIPAP. TURNED Q 2H. NEEDS WILL BE ANTICIPATED AND MET. TOTAL CARE.
[2016-05-14] MEDS: HYDRAGUARD CREAM TP SCH ×2 (01:00→13:48)
--- NOTE | 2016-05-14 02:00 | NUR ---
PT. MOUTH CLEANED AND SUCTIONED. SCANT MUCUS. ON BIPAP. SUCTIONED BY RT PRN. TURNED TO SIDES Q 2H. TOTAL CARE.
[2016-05-14] MEDS: ALBUTEROL SULFATE/IPRATROPIU 3 ML SOL IH SCH ×4 (04:19→15:07)
[2016-05-14] MEDS: CLINDAMYCIN 600 MG in DEXTROSE 5% 50 ML IV SCH ×2 (04:54→12:07)
--- NOTE | 2016-05-14 05:19 | NUR ---
SLEEPING. NO RESTLESSNESS AT THIS TIME. BREATHING TREATMENTS GIVEN BY RT. TELEMETRY MONITORING. TOTAL CARE.
--- NOTE | 2016-05-14 07:00 | NUR ---
RECEIVED RECIVED PT ON VENT WITH SETINGS CHARTED BREATH SOUNDS PRESENT BILAT DIMINISHED PT ANXIOUS TRING TO REMOVE BIPAP MASK BIPAP PLUGGED INTO RED OUTLET AMBU BAG AT BEDSIDE
--- NOTE | 2016-05-14 07:00 | NUR ---
Patient's Plan of Care was discussed and reviewed with CFO CONTROLLER: JOHNNIE Culver
--- NOTE | 2016-05-14 07:05 | NUR ---
ASSUMED CONTINUITY OF CARE. NO SIGNS AND SYMPTOMS OF ACUTE DISTRESS NOTED. INITIAL ASSESSMENT DONE. HOB ELEVATED. KEEP COMFORTABLE ON BED. SEIZURE AND FALL PRECAUTION APPLIED. CALL LIGHT WITHIN REACH.
--- NOTE | 2016-05-14 08:20 | NUR ---
DR. DOWNS CAME, SEEN PT., CHECKED PT. CHART, AND SPOKE TO RT -BILL REGARDING PT. BREATHING TREATMENT.
[2016-05-14] MEDS ORDERED: TAMSULOSIN 0.4 MG CAP PO SCH (08:30)
[2016-05-14] MEDS: SACCHAROMYCES 250 MG CAP PO SCH (08:46)
[2016-05-14] MEDS: CHOLECALCIFEROL 1,000 IU TAB GT SCH (08:46)
[2016-05-14] MEDS: LANSOPRAZOLE 30 MG CAPDR GT SCH (08:47)
[2016-05-14] MEDS: ASCORBIC ACID 500 MG TAB GT SCH (08:47)
[2016-05-14] MEDS: LEVOTHYROXINE 0.05 MG TAB GT SCH (08:47)
[2016-05-14] MEDS: OXYBUTYNIN 5 MG TAB GT SCH (08:47)
[2016-05-14] MEDS: acetaZOLAMIDE 250 MG TAB GT SCH (08:47)
[2016-05-14] MEDS: LORazepam 0.5 MG TAB GT SCH (08:48)
[2016-05-14] MEDS ORDERED: FUROSEMIDE 40 MG/4 ML VIAL IVP SCH ×2 (09:00→11:00)
--- NOTE | 2016-05-14 09:30 | NUR ---
TEMP 97.7 TEMPORAL SCAN, BP 978/61, HR 100, RESP 22, O2 SAT 97% ON BIPAP. NO DISCOMFORT NOTICED. EMPTIED LEFT NEPHROSTOMY TUBE BAG WITH 550 ML. CLEAR LIGHT YELLOW URINE OUTPUT. INFORMED CHARGE NURSE TYLER CROW.
--- NOTE | 2016-05-14 10:35 | NUR ---
TEMP 98.1 TEMPORAL SCAN, BP 104/64, HR 103, RESP 22, O2 SAT 99% ON BIPAP. NO DISCOMFORT NOTED. KEEP COMFORTABLE ON BED. WILL MONITOR.
--- NOTE | 2016-05-14 10:40 | NUR ---
INFORMED JM PAYAN OF PT. VITALS SIGNS AT 0930 AND 1035, AND LASIX 40 MG IVP GIVEN AT [address] HIMANSHU CABALLERO.
--- NOTE | 2016-05-14 11:51 | NUR ---
SS NOTE: PER [facility] [place] ([phone][place] PT CAN GO TO ROOM [address] BED [address] CASTRO. VASILE DE LEÓN. I SPOKE WITH ABILITY PATHWAYS KAIWHAKAHAERE, CANDELARIA AND MADE HER AWARE OF THE ABOVE INFORMATION. SHE STATED THAT SHE WILL CONTACT [facility] TO PROVIDE THEM WITH AN UPDATE ON PT.
--- NOTE | 2016-05-14 13:00 | NUR ---
REMOVED PT FROM AND PLACED ON 3LPM NC PT BHAVIN WELL FOR NOW SPO2 .98 WILL CONTINUE TO MONITOR RN AWARE
--- NOTE | 2016-05-14 13:00 | NUR ---
RT -BILL CAME TO WEAN PT. FROM BIPAP TO O2. RT -BILL PUT PT. ON O2 AT 3L/MIN VIA NC. TOLERATED WELL. NO SOB, NOTED. 97% ON O2 AT 3L/MIN VIA NC. INFORMED CHARGE NURSE TYLER CROW.
--- NOTE | 2016-05-14 13:27 | NUR ---
PATIENT TRANSPORT SET UP WITH [facility]IE ATTN: [place] # . FAXED [facility] THE MEDICARE FORM FAX# [phone]. PATIENT FREIGHT RATE SPECIALIST FROM [facility] 1700 TIME BY BROWN PEREIRA, ON 3L O2 VIA NC GOING TO [facility] RM 327 BED [address] CASTRO. CHARGE NURSE JOHNNIE BARGER [id number] AWARE.
--- NOTE | 2016-05-14 13:40 | NUR ---
TEMP 98 TEMPORAL SCAN, BP 124/63, HR 102, RESP 24, O2 SAT 98% AT 3L/MIN VIA NC. NO ACUTE DISTRESS NOTED. CONTINUE MONITORING.
--- NOTE | 2016-05-14 14:13 | NUR ---
05/14/16 RD FOLLOW UP COMPLETED PLEASE REFER TO NUTRITION PROGRESS NOTE UNDER CARE ACTIVITY FOR ESTIMATED NUTRITION NEEDS. RD RECOMMENDATIONS: 1. CONTINUE CURRENT TUBE FEEDING REGIME OF NUTREN PULMONARY AT 60 ML/HR WITH 20 ML FREE H20 FLUSHES Q4H VIA G TUBE. --ADEQUATE TO MEET 100% OF PT ESTIMATED KCAL NEEDS AND 97% OF PT ESTIMATED PROTEIN NEEDS. --NOTE PT TOLERATING TUBE FEEDING WELL PER RN. 2. RD WILL F/U 2-3 DAYS; HIGH RISK. PRICILA OROZCO RD
--- NOTE | 2016-05-14 14:18 | NUR ---
RT. GARCIA SPOKE TO JM PAYAN REGARDING ABG RESULTS.
[2016-05-14] MEDS ORDERED: ACETAMINOPHEN-H1 TA3 GT (14:55)
[2016-05-14] MEDS ORDERED: FLOMAX0.4 MG PO (14:55)
[2016-05-14] MEDS ORDERED: HEPARIN SOD5000 U/M1 SUBQ (14:55)
[2016-05-14] MEDS ORDERED: clindamycin IV (14:56)
[2016-05-14] MEDS ORDERED: FLORASTOR250 MG GT (14:58)
[2016-05-14] MEDS ORDERED: rocephin IV (14:58)
--- NOTE | 2016-05-14 16:24 | NUR ---
[facility] AND SPOKE TO RENA CROW, COMPLETE REPORT GIVEN.
--- NOTE | 2016-05-14 16:34 | NUR ---
CANDELARIA SNYDER WAS NOT ABLE TO CONTACT AT REGARDING PT. TRANSFER TO [facility]. INFORMED CHARGE NURSE TYLER CROW.
--- NOTE | 2016-05-14 16:38 | NUR ---
CALLED CRUSHER MACHINE OPERATOR -ISRA THAT CANDELARIA SNYDER WAS CALLED AT 1634 WITH PHONE NUMBER AND WAS NOT ABLE TO INFORM PT. [facility] [place]. PER CRUSHER MACHINE OPERATOR -ISRA, MACHINE PLATE STACKER -DAVID ALREADY CONTACTED CANDELARIA SNYDER AND INFORMED OF PT. TRANSFER. INFORMED CHARGE NURSE TYLER NAVA RN.
--- NOTE | 2016-05-14 17:20 | NUR ---
D/C VIA KELLI WITH [facility] MEDICAL TRANSPORTER. IN STABLE CONDITION. INFORMED JM PAYAN AND HOUSE CHARGE NURSE TYLER CROW.
== END 2016-05-14 17:20 | DRG 871 ==
LOC: MED 01:16 → MTU 06:06
PROVIDERS: ADMIT Student in an Organized Health Care Education/Training Program; ATTEND Student in an Organized Health Care Education/Training Program
PROC: 5A09357 Assistance with Respiratory Ventilation, Less than 24 Consecutive Hours, Continuous Positive Airway Pressure (ICD-10-PCS; 2016-05-10)
PROC: 0T9430Z Drainage of Left Kidney Pelvis with Drainage Device, Percutaneous Approach (ICD-10-PCS; principal; 2016-05-11)
PROC: BT121ZZ Fluoroscopy of Left Kidney using Low Osmolar Contrast (ICD-10-PCS; 2016-05-11)
PROC: 0HBRXZZ Excision of Toe Nail, External Approach (ICD-10-PCS; 2016-05-11)
PROC: 0HBRXZZ Excision of Toe Nail, External Approach (ICD-10-PCS; 2016-05-11)
PROC: 0HBRXZZ Excision of Toe Nail, External Approach (ICD-10-PCS; 2016-05-11)
PROC: 0HBRXZZ Excision of Toe Nail, External Approach (ICD-10-PCS; 2016-05-11)
PROC: 0HBRXZZ Excision of Toe Nail, External Approach (ICD-10-PCS; 2016-05-11)
PROC: 0HBRXZZ Excision of Toe Nail, External Approach (ICD-10-PCS; 2016-05-11)
PROC: 0HBRXZZ Excision of Toe Nail, External Approach (ICD-10-PCS; 2016-05-11)
PROC: 0HBRXZZ Excision of Toe Nail, External Approach (ICD-10-PCS; 2016-05-11)
PROC: 0HBRXZZ Excision of Toe Nail, External Approach (ICD-10-PCS; 2016-05-11)
PROC: 0HBRXZZ Excision of Toe Nail, External Approach (ICD-10-PCS; 2016-05-11)
DX: A41.9 Sepsis, unspecified organism (principal); J96.01 Acute respiratory failure with hypoxia; N17.0 Acute kidney failure with tubular necrosis; E43 Unspecified severe protein-calorie malnutrition; J69.0 Pneumonitis due to inhalation of food and vomit; N13.2 Hydronephrosis with renal and ureteral calculous obstruction; F72 Severe intellectual disabilities; G91.2 (Idiopathic) normal pressure hydrocephalus; E87.0 Hyperosmolality and hypernatremia; N39.0 Urinary tract infection, site not specified; R13.10 Dysphagia, unspecified; F31.9 Bipolar disorder, unspecified; E03.9 Hypothyroidism, unspecified; R62.59 Other lack of expected normal physiological development in childhood; F80.2 Mixed receptive-expressive language disorder; E87.8 Other disorders of electrolyte and fluid balance, not elsewhere classified; E83.51 Hypocalcemia; I51.7 Cardiomegaly; D64.9 Anemia, unspecified; E66.9 Obesity, unspecified; B35.1 Tinea unguium; B96.4 Proteus (mirabilis) (morganii) as the cause of diseases classified elsewhere; G80.9 Cerebral palsy, unspecified; Z93.6 Other artificial openings of urinary tract status; Z93.1 Gastrostomy status; Z68.31 Body mass index [BMI] 31.0-31.9, adult; Z91.011 Allergy to milk products

== ENCOUNTER 2016-05-28 17:56 | Inpatient (IN) | payer OTHER, MEDICAID ==
[~2016-05-28] VITALS: Ht 177.8 cm; Wt 68.0 kg
[~2016-05-28 17:56] MED LIST changes: +ACETAMINOPHEN-H1 TA3 GT; +FLOMAX0.4 MG PO; +FLORASTOR250 MG GT; +HEPARIN SOD5000 U/M1 SUBQ; +clindamycin IV; +rocephin IV
--- NOTE | 2016-05-28 18:09 | NUR ---
PT BIBA TO BED 3 AT THIS TIME.
--- NOTE | 2016-05-28 18:15 | NUR ---
56/M BIBA FROM [facility] FOR DISLOGEMENT OF LEFT NEPHROSTOMY TUBE. PER CAREGIVER PT BEING TRANSFERRED IN YINA LIFT AND PT ACCIDENTALLY TUGGED IT OUT. 4X4 DRESSING NOTED TO L FLANK. NO BLEEDING NOTED. SITE APPEARS RED. HX SEVERE INTELLETUAL DISABILITY, MACROCEPHALY, SZ AND GTUBE. PT HAD NEPHROSTOMY TUBE IN PLACE RECENTLY FOR KIDNEY STONES. PT AWAKE, NONVERBAL, PER PCG ONLT MOVES ULE, WEAKNES TO LUE AND BLE. SAFETY AND COMFORT MEASURES IN PLACE. PT PLACED ON MONITOR. ER MADE AWARE.
[2016-05-28 18:19] VITALS: BP 106/67
--- NOTE | 2016-05-28 18:30 | NUR ---
22G IV TO LFA VIA ULTRASOUND GUIDED IV. LAB AT BEDSIDE FOR BLOOD DRAW.
--- NOTE | 2016-05-28 18:55 | NUR ---
Patient will be admitted to care of DR. KIDD. Admited to [facility]. Will go to room 116. Belongings list completed. Report to ZAIRA.
[2016-05-28] MEDS ORDERED: ONDANSETRON 4 MG/2 ML VIAL IVP PRN ×2 (19:20→20:03)
[2016-05-28] MEDS ORDERED: ACETAMINOPHEN 325 MG TAB PO PRN ×2 (19:20→20:07)
[2016-05-28] MEDS ORDERED: MORPHINE SULFATE 2 MG/ML SYR IVP PRN (19:20)
[2016-05-28] MEDS ORDERED: HYDROcodone/APAP 7.5/325 MG 1 TAB PO PRN (19:20)
[2016-05-28] MEDS ORDERED: BISACODYL 10 MG SUPP RC PRN (19:30)
[2016-05-28] MEDS ORDERED: SODIUM PHOSPHATE 118 ML ENEM RC PRN (19:30)
[2016-05-28] MEDS ORDERED: HYDROcodone/APAP 5/325 MG 1 TAB TAB GT PRN ×2 (19:30→20:07)
--- NOTE | 2016-05-28 19:45 | NUR ---
PT ARRIVED TO UNIT VIA GURNEY. PT IS NON VERBAL, PT ONLY MAKES NOISE. PT HAS A DRESSING ON LEFT SIDE OF HIS BACK DUE TO NEPHROSTOMY DISLODGEMENT. PT HAS A G TUBE. PT HAS IV TO LEFT FOREARM G 22 SL. PT PLACED ON SAFETY/FALL PRECAUTION, SEIZURE PRECAUTION, ALLERGY ARM ON. MRSA SWAB DONE AND TAKEN TO LAB. ORIENTED PT TO ROOM AND SURROUNDINGS BUT PT IS NONVERBAL. CALL LIGHT WITHIN REACH, WILL CONTINUE TO MONITOR PT.
[2016-05-28] MEDS: LORazepam 1 MG TAB GT SCH (21:34)
[2016-05-28] MEDS: SACCHAROMYCES 250 MG CAP GT SCH (21:35)
[2016-05-28] MEDS: acetaZOLAMIDE 250 MG TAB GT SCH (21:35)
--- NOTE | 2016-05-28 21:40 | NUR ---
2100 MEDS CRUSHED AND GIVEN VIA G TUBE. PT TOLERATED IT WELL. PT TURNED/REPOSITIONED. WILL CONTINUE TO MONITOR PT.
--- NOTE | 2016-05-28 23:30 | NUR ---
ENDORSED PT IN STABLE CONDITION TO RN CHAVEZ FOR CONTINUITY OF CARE.
--- NOTE | 2016-05-28 23:34 | NUR ---
RECEIVED FROM ANOTHER RN FOR CONTINUITY OF CARE. PT. SEEN AND ASLEEP. NONE VERBAL. DX. OF LEFT SIDED NEPHROSTOMY TUBE. PT. NEEDS WILL BE ANTICIPATED AND WILL BE MET. HX. MENTAL RETARDATION. IVF SITE TO [id number].
[2016-05-28 23:39] VITALS: BP 138/78
--- NOTE | 2016-05-29 01:41 | NUR ---
STILL SLEEPING. NEEDS WILL BE ANTICIPATED AND WILL BE MET. NO NOTED RESTLESSNESS. DRESSING TO NEPHROSTOMY SITE PULLED OUT BY PT. INTACT AND NO BLEEDING.
--- NOTE | 2016-05-29 03:39 | NUR ---
PT. AT THIS TIME STILL SLEEPING . NO RESTLESSNESS. CALL LIGHT WITH IN REACH. NEEDS ANTICIPATED AND WILL BE MET. TURNED TO SIDES Q 2H. TOTAL CARE RT MENTALLY CHALLENGED. NONE VERBAL. PADDED SIDE RAILS FOR SEIZURE PRECAUTIONS.
[2016-05-29 04:30] VITALS: BP 110/70
--- NOTE | 2016-05-29 06:14 | NUR ---
TURNED TO SIDES Q 2H. ON TELEMETRY MONITORING. PT. MENTALLY CHALLENGED AND NONE VERBAL. KEPT CLEAN AND COMFORTABLE. PILLOW SUPPORT TO PRESSURE AREAS.
--- NOTE | 2016-05-29 07:19 | NUR ---
RECEIVED REPORT FROM LOADING DOCK HAND NURSE. PT IS AWAKE, ALERT, AND APHASIC - NO S/SX OF PAIN OR DISTRESS NOTED, FLACC 0. IV IS PATENT AND INTACT. DRESSING TO POSTERIOR LEFT SIDE IS DRY AND INTACT. PT IS ON 2L OF O2 VIA NASAL CANNULA, VITALS STABLE. CALL LIGHT WITHIN REACH. WILL CONTINUE TO MONITOR.
--- NOTE | 2016-05-29 07:19 | NUR ---
RECEIVED REPORT FROM OXYGEN FURNACE OPERATOR NURSE. PT IS AWAKE, ALERT, AND APHASIC - NO S/SX OF PAIN OR DISTRESS NOTED, FLACC 0. IV IS PATENT AND INTACT. SKIN
--- NOTE | 2016-05-29 07:48 | NUR ---
PATIENT HAS BEEN SCREENED AND CATEGORIZED MODERATE NUTRITION RISK. PATIENT WILL BE SEEN WITHIN 3-5 DAYS OF ADMISSION. 05/31/16-06/02/[address]
[2016-05-29 08:00] VITALS: BP 125/82
[2016-05-29] MEDS ORDERED: LEVOTHYROXINE 0.05 MG TAB GT SCH (09:00)
[2016-05-29] MEDS ORDERED: DOCUSATE SODIUM 100 MG GELCAP PO SCH (09:00)
[2016-05-29] MEDS ORDERED: FAMOTIDINE 20 MG TAB PO SCH (09:00)
[2016-05-29] MEDS: acetaZOLAMIDE 250 MG TAB GT SCH ×2 (09:26→20:58)
[2016-05-29] MEDS: LORazepam 0.5 MG TAB GT SCH (09:26)
[2016-05-29] MEDS: TAMSULOSIN 0.4 MG CAP PO SCH (09:27)
[2016-05-29] MEDS: OXYBUTYNIN 5 MG TAB GT SCH (09:27)
[2016-05-29] MEDS: MULTIVITAMIN 1 TAB PO SCH (09:27)
[2016-05-29] MEDS: SACCHAROMYCES 250 MG CAP GT SCH ×2 (09:27→20:58)
[2016-05-29] MEDS: ASCORBIC ACID 500 MG TAB GT SCH (09:28)
--- NOTE | 2016-05-29 09:40 | NUR ---
PT BHAVIN MEDS WELL.
[2016-05-29] MEDS ORDERED: ONDANSETRON 4 MG/5 ML ORASYR PO PRN (11:55)
[2016-05-29] MEDS ORDERED: SILVER NITRATE APPLICATOR 1 EA SWAB TP PRN (11:55)
[2016-05-29] MEDS ORDERED: ACETAMINOPHEN 650 MG/20.3 ML UDC GT PRN (11:55)
[2016-05-29 12:00] VITALS: BP 138/85
[2016-05-29] MEDS ORDERED: ONDANSETRON 4 MG/5 ML ORASYR GT PRN (12:05)
--- NOTE | 2016-05-29 12:22 | NUR ---
PT CHANGED AND REPOSITIONED.
[2016-05-29] MEDS: NACL 0.9% 1,000 ML IV SCH (12:25)
--- NOTE | 2016-05-29 14:22 | NUR ---
PT RESTING AND EASILY AROUSABLE. WILL CONTINUE TO MONITOR.
[2016-05-29 16:00] VITALS: BP 101/83
--- NOTE | 2016-05-29 17:51 | NUR ---
STRAIGHT CATH PERFORMED AND URINE COLLECTED PER MD ORDER.
--- NOTE | 2016-05-29 19:20 | NUR ---
PT IS CURRENTLY RESTING IN BED WITH MENTAL RETARDATION,HAS SIDERAILS PADDED FOR SZ PRECAUTION.PT WILL CONTINUE TO BE TURNED AND REPOSITIONED FOR COMFORT.NO PAIN OR DISCOMFORT NOTED.IVF INFUSING WELL IV SITE PATENT NO INFILTRATION NOTED.WILL CONTINUE TO MONITOR.FREQUENT VISUAL CHECKS WILL BE DONE.
--- NOTE | 2016-05-29 20:00 | NUR ---
Patient's Plan of Care was discussed and reviewed with CARTON MACHINE OPERATOR: MARGO MORALES
[2016-05-29 20:05] VITALS: BP 126/85
[2016-05-29] MEDS: LORazepam 1 MG TAB GT SCH (20:58)
--- NOTE | 2016-05-29 22:56 | NUR ---
PT SLEEPING COMFORTABLY IN BED IN NO DISTRESS WILL CONTINUE TO MONITOR.
--- NOTE | 2016-05-30 | NUR ---
PT IS CURRENTLY SLEEPING IN BED NO SEIZURE ACTIVITY NOTED,NEEDS MET WILL CONTINUE TO MONITOR.
[2016-05-30 00:17] VITALS: BP 138/76
--- NOTE | 2016-05-30 02:28 | NUR ---
PT IS CURRENTLY SLEEPING IN BED PT STABLE IVF INFUSING WELL IV SITE PATENT NO INFILTRATION NOTED.
--- NOTE | 2016-05-30 03:48 | NUR ---
PT IS CURRENTLY SLEEPING RESTING IN BED NO DISTRESS WILL CONTINUE TO MONITOR.
[2016-05-30 04:00] VITALS: BP 122/79
--- NOTE | 2016-05-30 06:27 | NUR ---
PT SLEEPING IN BED IVF INFUSING WELL WILL CONTINUE TO MONITOR.NEEDS MET.
[2016-05-30] MEDS: LEVOTHYROXINE 0.05 MG TAB GT SCH (06:35)
--- NOTE | 2016-05-30 07:25 | NUR ---
PT STABLE RESTING IN BED REPORT ENDORSED TO RN ABBI SHE WILL RESUME CARE OF THE PATIENT.
--- NOTE | 2016-05-30 07:28 | NUR ---
RECEIVED REPORT FROM DIRECTOR OF BRAND MARKETING NURSE. PT IS AWAKE, ALERT, AND NON VERBAL- FLACC 0. SKIN IS DRY AND INTACT. IV IS PATENT AND FLOWING. PT IS ON ROOM AIR, VITALS STABLE. CALL LIGHT WITHIN REACH, BED IN LOWEST POSITION. WILL CONTINUE TO MONITOR.
[2016-05-30 08:00] VITALS: BP 125/70
[2016-05-30] MEDS: OXYBUTYNIN 5 MG TAB GT SCH (08:34)
[2016-05-30] MEDS: MULTIVITAMIN 1 TAB PO SCH (08:34)
[2016-05-30] MEDS: acetaZOLAMIDE 250 MG TAB GT SCH ×2 (08:34→20:57)
[2016-05-30] MEDS: DOCUSATE 100 MG/10 ML UDC GT SCH (08:34)
[2016-05-30] MEDS: ASCORBIC ACID 500 MG TAB GT SCH (08:35)
[2016-05-30] MEDS: TAMSULOSIN 0.4 MG CAP PO SCH (08:35)
[2016-05-30] MEDS: LORazepam 0.5 MG TAB GT SCH (08:35)
[2016-05-30] MEDS: SACCHAROMYCES 250 MG CAP GT SCH ×2 (08:35→20:57)
[2016-05-30] MEDS: LANSOPRAZOLE 30 MG CAPDR GT SCH (08:35)
--- NOTE | 2016-05-30 09:02 | NUR ---
PT BHAVIN MEDS WELL.
--- NOTE | 2016-05-30 11:35 | NUR ---
PT RESTING COMFORTABLY, CHANGED AND REPOSITION. WILL CONTINUE TO MONITOR.
[2016-05-30] MEDS: NACL 0.9% 1,000 ML IV SCH (12:18)
[2016-05-30] MEDS: LEVOFLOXACIN 500 MG/D5W PREMIX 100 ML IV SCH (12:19)
--- NOTE | 2016-05-30 14:02 | NUR ---
VSS REMAIN STABLE.
--- NOTE | 2016-05-30 14:17 | NUR ---
TELEPHONE CONSENT OBTAINED BY CLAUDIO CARY , NEXT OF KIN. WITNESSED BY CHRIS BORJA AND PROCEDURE EXPLAINED BY DR. SUAZO. NEXT OF KIN VERBALIZED UNDERSTANDING.
[2016-05-30 16:00] VITALS: BP 105/88
--- NOTE | 2016-05-30 16:17 | NUR ---
ALL NEEDS MET AT THIS TIME. WILL CONTINUE TO MONITOR.
--- NOTE | 2016-05-30 19:15 | NUR ---
ENDORSED TO ASSISTANT OPERATIONS MANAGER NURSE IN STABLE CONDITION
--- NOTE | 2016-05-30 19:20 | NUR ---
PT IS CURRENTLY AWAKE APHASIC RESTING IN BED,IVF INFUSING WELL IV SITE PATENT NO INFILTRATION NOTED.PT CONTINUES TO BE TURNED AND REPOSITIONED FOR COMFORT,GTUBE COVERED WITH A TOWEL TO PROTECT SKIN FROM FRICTION.NO PAIN OR DISCOMFORT NOTED AT THIS TIME.FALL PREC AND SZ PREC CONTINUE TO BE IMPLEMENTED NO SZ ACTIVITY NOTED AT THIS TIME.VITAL SIGNS TAKEN PT IS AFEBRILE.PT IS CURRENTLY CALM.WILL CONTINUE TO MONITOR FREQUENT VISUAL CHECKS WILL BE DONE.WILL CONTINUE TO OBSERVE.
--- NOTE | 2016-05-30 19:30 | NUR ---
Patient's Plan of Care was discussed and reviewed with RN RELIEF CHARGE: MARGO MORALES.
[2016-05-30 20:00] VITALS: BP 114/67
[2016-05-30] MEDS: LORazepam 1 MG TAB GT SCH (20:57)
--- NOTE | 2016-05-30 20:57 | NUR ---
NIGHTIME MEDS ADMINISTERED AT THIS TIME VIA GTUBE, IVF INFUSING WELL, I SITE PATENT NO INFILTRATION NOTED,NO SZ ACTIVITY NOTED, AND CONTINUE TO BE MONITORED.
--- NOTE | 2016-05-31 00:05 | NUR ---
PT HAS BEEN CLEANED,, TURNED AND REPOSITIONED, OFFLOADING DONE FOR COMFORT,GOOD MOUTH CARE GIVEN,PT HAS BEEN SUCTIONED AND HAS MINIMAL DRY THICK SECRETIONS IN HIS MOUTH.THEN MOUTH AND LIPS LUBRICATED WELL.NEEDS CONTINUE TO BE MET WILL CONTINUE TO MONITOR.
[2016-05-31 00:17] VITALS: BP 128/69
--- NOTE | 2016-05-31 02:12 | NUR ---
PT SLEEPING COMFORTABLY IN BED IN NO DISTRESS WILL CONTINUE TO MONITOR,IVF INFUSING WELL WILL CONTINUE TO MONITOR.FREQUENT VISUAL CHECKS DONE.
--- NOTE | 2016-05-31 02:50 | NUR ---
PT'S IV KEEPS BEEPING,I FLUSHED HIS IV LINE AND THERE IS SOME RESISTANCE AND THERE IS NO BLOOD RETURN.NO INFILTRATION NOTED TO HIS LT ARM.IV SITE WAS DISCONTINUED.AFTER TWO ATTEMPTS TO RESTART AN IV I WAS ABLE TO START AN IV LINE TO HIS RT THUMB G#24 AND THIS SITE HAS GOOD BLOOD RETURN AND FLUSHING WELL,IVF CONNECTED AND IS CURRENTLY INFUSING WELL WILL CONTINUE TO MONITOR.PT TOLERATED PROCEDURE WELL PT IS CURRENTLY SLEEPING.
--- NOTE | 2016-05-31 03:37 | NUR ---
PT RESTING IN BED AT THIS TIME,PT SUCTIONED NEEDED, WILL CONTINUE TO MONITOR.
--- NOTE | 2016-05-31 04:20 | NUR ---
PT SLEEPING COMFORTABLY IN BED IN NO DISTRESS.
[2016-05-31] MEDS: LEVOTHYROXINE 0.05 MG TAB GT SCH (06:41)
--- NOTE | 2016-05-31 07:17 | NUR ---
PT STABLE REPORT ENDORSED TO CHRIS SERRA AT BEDSIDE.
--- NOTE | 2016-05-31 07:17 | NUR ---
RECEIVED REPORT FROM NIGHT NURSE, PT IS APHASIC ALERT AND AWAKE, ON ROOM AIR, IV TO RIGHT THUMB 22G INFUSING WELL, G-TUBE NOTED, INITIAL ASSESSMENT COMPLETED, REVIEWED PLAN OF CARE WITH PT, PT UNABLE VERBALIZED UNDERSTANDING. ALL SAFETY.SEIZURES PRECAUTIONS MET, ALL NEEDS MET. CALL LIGHT WITHIN REACH. WILL CONTINUE TO MONITOR.
[2016-05-31 08:00] VITALS: BP 122/73
[2016-05-31] MEDS: LORazepam 0.5 MG TAB GT SCH (08:40)
[2016-05-31] MEDS: DOCUSATE 100 MG/10 ML UDC GT SCH (08:40)
[2016-05-31] MEDS: SACCHAROMYCES 250 MG CAP GT SCH ×2 (08:40→20:51)
[2016-05-31] MEDS: MULTIVITAMIN 1 TAB PO SCH (08:40)
[2016-05-31] MEDS: OXYBUTYNIN 5 MG TAB GT SCH (08:40)
[2016-05-31] MEDS: LANSOPRAZOLE 30 MG CAPDR GT SCH (08:40)
[2016-05-31] MEDS: TAMSULOSIN 0.4 MG CAP PO SCH (08:41)
[2016-05-31] MEDS: acetaZOLAMIDE 250 MG TAB GT SCH ×2 (08:41→20:51)
[2016-05-31] MEDS: ASCORBIC ACID 500 MG TAB GT SCH (08:41)
--- NOTE | 2016-05-31 08:42 | NUR ---
DUE MEDICATIONS GIVEN, MEDICATIONS GIVEN BY G-TUBE, PT TOLERATED WELL, CALL LIGHT WITHIN REACH. WILL CONTINUE TO MONITOR.
--- NOTE | 2016-05-31 11:35 | NUR ---
PT LEFT UNIT TO OR.
[2016-05-31] MEDS: NACL 0.9% 1,000 ML IV SCH ×2 (11:45→20:56)
[2016-05-31] MEDS ORDERED: ONDANSETRON 4 MG/2 ML VIAL IVP PRN (12:40)
[2016-05-31] MEDS ORDERED: HYDROmorphone 1 MG/ML AMP IVP PRN (12:40)
[2016-05-31] MEDS: LEVOFLOXACIN 500 MG/D5W PREMIX 100 ML IV SCH ×2 (13:00→14:10)
--- NOTE | 2016-05-31 14:05 | NUR ---
PT RETURNED FROM OR, PT IS AWAKE AND ALERT, NO S/S OF DISTRESS OR DISCOMFORT NOTED. NEPHROSTOMY TUBE NOTED TO LEFT LOWER BACK, YELLOW URINE NOTED ON NEPHROSTOMY BAG. VS TEMP 97.8, BP 121/75, HR 59, PULSE OX 97% ON ROOM AIR. CALL LIGHT WITHIN REACH. WILL CONTINUE TO MONITOR.
--- NOTE | 2016-05-31 14:20 | NUR ---
VS TEMP 97.8 BP 126/74, HR 95, PULSE OX 98, CALL LIGHT WITHIN REACH. WILL CONTINUE TO MONITOR
--- NOTE | 2016-05-31 14:35 | NUR ---
VS TEMP 97.6, BP 114/71, HR 95, PULSE OX 98%. WILL CONTINUE TO MONITOR.
--- NOTE | 2016-05-31 14:50 | NUR ---
VS 97.6, BP 114/51, HR 69, PULSE OX 97% ON ROOM AIR. WILL CONTINUE TO MONITOR.
--- NOTE | 2016-05-31 15:50 | NUR ---
VS 97.8, BP 128/63, HR 89, PULSE OX 96% ON ROOM AIR. PT CURRENTLY AWAKE, NO S/S OF RESPIRATORY DISTRESS NOTED, CALL LIGHT WITHIN REACH, WILL CONTINUE TO MONITOR.
--- NOTE | 2016-05-31 16:30 | NUR ---
CHECKED IN ON PT CURRENTLY AWAKE, NO S/S OF DISCOMFORT NOTED, ALL NEEDS MET, CALL LIGHT WITHIN REACH. WILL CONTINUE TO MONITOR.
[2016-05-31 16:59] VITALS: BP 128/63
--- NOTE | 2016-05-31 19:00 | NUR ---
ENDORSED PLAN OF CARE TO NIGHT NURSE. PT IN STABLE CONDITION.
--- NOTE | 2016-05-31 19:54 | NUR ---
Patient's Plan of Care was discussed and reviewed with GAS WORKER: MARGO MORALES
[2016-05-31 20:00] VITALS: BP 110/77
[2016-05-31] MEDS: LORazepam 1 MG TAB GT SCH (20:51)
--- NOTE | 2016-05-31 22:30 | NUR ---
PT IS CURRENTLY RESTING IN BED NO DISTRESS WILL CONTINUE TO MONITOR.WILL CONTINUE TO OBSERVE.
[2016-06-01] VITALS: BP 100/67
--- NOTE | 2016-06-01 00:05 | NUR ---
PT IS CURRENTLY SLEEPING IVF INFUSING WELL IV SITE PATENT NO INFILTRATION NOTED.PT CONTINUES TO BE TURNED AND REPOSITIONED FOR COMFORT.NO PAIN OR DISCOMFORT NOTED NO FACIAL GRIMACING NOTED.CALL LIGHT WITHIN REACH.WILL CONTINUE TO OBSERVE.
--- NOTE | 2016-06-01 02:20 | NUR ---
PT IS CURRENTLY SLEEPING IN BED IN NO DISTRESS WILL CONTINUE TO MONITOR.
--- NOTE | 2016-06-01 02:47 | NUR ---
PT WAS TURNED AND REPOSITIONED WITH THE ASSISTANCE OF CAREN VENTURA.PT DOING WELL,NEPHROSTOMY TUBE IN PLACE AND 500ML OF URINE EMPTIED FROM NEPHROSTOMY URINARY BAG.WILL CONTINUE TO MONITOR.
--- NOTE | 2016-06-01 04:20 | NUR ---
PT IS CURRENTLY SLEEPING IN BED CONTINUE TO BE TURNED AND REPOSITIONED.NO SZ ACTIVITY NOTED AND NO PAIN OR DISCOMFORT NOTED.WILL CONTINUE TO MONITOR.
[2016-06-01 04:25] VITALS: BP 113/78
--- NOTE | 2016-06-01 06:15 | NUR ---
PT STABLE GOOD MOUTH CARE GIVEN AND MOUTH RINSED AND SUCTIONED WELL AND ORAL MOISTURIZER APPLIED.
[2016-06-01] MEDS: LEVOTHYROXINE 0.05 MG TAB GT SCH (06:30)
--- NOTE | 2016-06-01 07:25 | NUR ---
PT STABLE REPORT ENDORSED AT BEDSIDE TO CHRIS CROSS.
--- NOTE | 2016-06-01 07:26 | NUR ---
RECEIVED REPORT FROM THE MAIL COURIER NURSE AT BEDSIDE. PT IS AWAKE BUT NOT ALERT. PT IS NOT TRACKING MY MOVEMENT WITH HIS EYES. NOTED PT'S R HAND 2 IV'S ONE IN THE THUMB 24G AND PINKIE 22G. R PINKIE IS INFUSING NS 20ML. NOTED THE GTUBE. CLEAN AND DRY. NOTED THE L NEPHROSTOMY TUBE W/ URINE BAG ATTACHED. YELLOW URINE IN BAG. NO SIGNS OF DISTRESS AT THIS TIME. WILL CONTINUE TO MONITOR PT.
--- NOTE | 2016-06-01 08:15 | NUR ---
V/S WITHIN NORMAL RANGE. DRS CAME IN. DC? PT WILL BE GOING BACK TO HIS FACILITY TODAY. WILL CONTINUE TO MONITOR PT.
--- NOTE | 2016-06-01 09:30 | NUR ---
ADMINISTERED MORNING MEDS. I CHECKED FOR PLACEMENT, I CHECKED FOR RESIDUAL. GTUBE WAS PATENT AND IN GOOD CONDITION. PT TOLERATED WELL. ALL SAFETY MEASURES IN PLACE. WILL CONTINUE TO MONITOR.
[2016-06-01] MEDS: DOCUSATE 100 MG/10 ML UDC GT SCH (09:31)
[2016-06-01] MEDS: OXYBUTYNIN 5 MG TAB GT SCH (09:31)
[2016-06-01] MEDS: MULTIVITAMIN 1 TAB PO SCH (09:32)
[2016-06-01] MEDS: LANSOPRAZOLE 30 MG CAPDR GT SCH (09:32)
[2016-06-01] MEDS: acetaZOLAMIDE 250 MG TAB GT SCH (09:32)
[2016-06-01] MEDS: LORazepam 0.5 MG TAB GT SCH (09:32)
[2016-06-01] MEDS: TAMSULOSIN 0.4 MG CAP PO SCH (09:32)
[2016-06-01] MEDS: SACCHAROMYCES 250 MG CAP GT SCH (09:32)
[2016-06-01] MEDS: ASCORBIC ACID 500 MG TAB GT SCH (09:36)
--- NOTE | 2016-06-01 11:10 | NUR ---
IV BEEPING. FLUSHED HIS LINE. RESTARTED IV PUMP. FLOWING NICELY. PT IS RESTING. NO SIGNS OF DISTRESS. WILL CONTINUE TO MONITOR PT.
[2016-06-01] MEDS: LEVOFLOXACIN 500 MG/D5W PREMIX 100 ML IV SCH (12:30)
--- NOTE | 2016-06-01 12:38 | NUR ---
ADMINISTERED LEVAQUIN ABX. PT IS FLOWING WELL. PT IS SLEEPING SOUNDLY. THE CIRCULATION SALES REPRESENTATIVE AND I REPOSITIONED PT. PT LOOKS COMFORTABLE. NO SIGNS OF DISTRESS OR PAIN. WILL CONTINUE TO MONITOR PT.
--- NOTE | 2016-06-01 14:00 | NUR ---
PT IS SLEEPING SOUNDLY. NO SIGNS OF DISTRESS. WILL CONTINUE TO MONITOR PT.
[2016-06-01] MEDS ORDERED: FLORASTOR250 MG GT (14:42)
[2016-06-01] MEDS ORDERED: LEVAQUIN750 MG GT (14:42)
--- NOTE | 2016-06-01 15:01 | NUR ---
DR. NICHOLSON CALLED REGARDING PT. HE WILL SET UP THE PROCEDURE APPT FOR STENT FOR NEXT WEEK. HE WILL CALL THE FACILITY WHERE PT RESIDES ABOUT PRECAUTION AND INSTRUCTIONS ON HOW TO CARE FOR PT'S NEPHROSTOMY TUBE. I WILL ALSO EMPHASIZE CARE AND CAUTION W/ NEPHROSTOMY TUBE WHEN GIVING REPORT.
[2016-06-01 16:00] VITALS: BP 131/104
--- NOTE | 2016-06-01 16:30 | NUR ---
TIFFANY CALLED THE FACILITY [facility] AND SPOKE TO ER TECH AND DIRECTOR. GAVE REPORT. THEY WILL SEND TRANSPORTATION FOR PT. AWAITING TRANSPORTATION.
--- NOTE | 2016-06-01 17:00 | NUR ---
BUSINESS APPLICATIONS ANALYST AND TRANSPORTER HERE FROM FACILITY TO MORTGAGE PROTECTION SPECIALIST PT. WAITING FOR D/C PAPERS.
--- NOTE | 2016-06-01 17:35 | NUR ---
EXERCISE MANAGER AND THE FACILITY TRANSPORT CAME TO BODY SHOP WORKER PT. THEY RECEIVED REPORT. PT IS IN A WHEELCHAIR. IVS REMOVED, CANNULA INTACT. PT IS GOING BACK TO HIS FACILITY WITH THE NEPHROSTOMY TUBE ON L SIDE. IT IS INTACT. PT IS STABLE. PT IS. GAVE INSTRUCTIONS IN CARING FOR THE NEPHROSTOMY. REMOVED ALL WRIST BANDS. PT BACK IN HIS CLOTHES. ALL PERSONAL BELONGINGS AND DISCHARGE PACKET WITH EXERCISE MANAGER. THEY WHEELED HIM OFF THE UNIT.
== END 2016-06-01 17:35 | DRG 698 ==
LOC: MED 17:56 → INTOOBSV 19:24 → MTU 19:24 → OBSVTOIN 05-29 14:47
PROVIDERS: ADMIT Family Medicine; ATTEND Family Medicine
PROC: BT121ZZ Fluoroscopy of Left Kidney using Low Osmolar Contrast (ICD-10-PCS; 2016-05-31)
PROC: 0T9430Z Drainage of Left Kidney Pelvis with Drainage Device, Percutaneous Approach (ICD-10-PCS; principal; 2016-05-31 12:00)
DX: T83.022A Displacement of nephrostomy catheter, initial encounter (principal); N17.0 Acute kidney failure with tubular necrosis; K85.90 Acute pancreatitis without necrosis or infection, unspecified; N13.2 Hydronephrosis with renal and ureteral calculous obstruction; G91.2 (Idiopathic) normal pressure hydrocephalus; N39.0 Urinary tract infection, site not specified; F72 Severe intellectual disabilities; E44.0 Moderate protein-calorie malnutrition; R47.01 Aphasia; F31.9 Bipolar disorder, unspecified; G40.909 Epilepsy, unspecified, not intractable, without status epilepticus; E03.9 Hypothyroidism, unspecified; E87.8 Other disorders of electrolyte and fluid balance, not elsewhere classified; Z91.012 Allergy to eggs; Z91.011 Allergy to milk products; Z91.018 Allergy to other foods; Z79.899 Other long term (current) drug therapy; Z68.21 Body mass index [BMI] 21.0-21.9, adult
CPT/HCPCS: 99285; G0378

== ENCOUNTER 2016-07-20 12:31 | Emergency (ER) | payer OTHER, MEDICAID ==
[~2016-07-20] VITALS: Ht 172.7 cm; Wt 67.1 kg
[~2016-07-20 12:31] MED LIST changes: +LEVAQUIN750 MG GT
--- NOTE | 2016-07-20 12:35 | NUR ---
PT BIBA TO BED 4 AT THIS TIME.
[2016-07-20] MEDS ORDERED: NACL 0.9% 1,000 ML IV SCH (12:41)
[2016-07-20] MEDS ORDERED: ONDANSETRON 4 MG/2 ML VIAL IVP ONE (12:45)
[2016-07-20 12:50] VITALS: BP 132/90
--- NOTE | 2016-07-20 12:55 | NUR ---
PER STAFF AND TECHNICAL MGR POSS.SEIZURE BUT NO SEIZURE ACTIVITY BUT MOUTH FOAMIMG.GTUBE. NON VERBAL.HX: SEIZURE,SEVERE MENTAL RETARDATION,,BIPOLAR,UTI,MRSA SKIN,CHF,HYDROCEPHALUS,APHASIA; DENIES N/V/D; SKIN IS PINK/WARM/DRY; AAOX4 WITH EVEN AND STEADY GAIT; LUNGS CLEAR BL; HR EVEN AND REGULAR; PT DENIES ANY FEVER, CP, SOB, OR COUGH AT THIS TIME; PATIENT STATES PAIN OF 0/10 AT THIS TIME; VSS; PATIENT POSITIONED FOR COMFORT; HOB ELEVATED; BEDRAILS UP X2; BED DOWN. ER MD MADE AWARE OF PT STATUS.
[2016-07-20] MEDS ORDERED: [UNRECOGNIZED DRUG - CODE] GT (13:17)
[2016-07-20] MEDS ORDERED: ACETAZOLAMIDE500 M2 PO (13:17)
[2016-07-20 16:45] VITALS: BP 118/76
--- NOTE | 2016-07-20 16:45 | NUR ---
Patient discharged with v/s stable. Written and verbal after care instructions given and explained. Patient verbalized understanding. Wheel Chair Assisted with by caregiver. All questions addressed prior to discharge. Advised to follow up with PMD.
== END 2016-07-20 16:45 | disposition home or self-care (01) ==
LOC: MED 12:31
DX: G91.2 (Idiopathic) normal pressure hydrocephalus (principal); T36.8X5A Adverse effect of other systemic antibiotics, initial encounter; G40.909 Epilepsy, unspecified, not intractable, without status epilepticus; L27.0 Generalized skin eruption due to drugs and medicaments taken internally; E03.9 Hypothyroidism, unspecified; I50.9 Heart failure, unspecified; Z91.018 Allergy to other foods; Y92.89 Other specified places as the place of occurrence of the external cause
CPT/HCPCS: 36415; 70450; 71010; 80053; 81001; 82150; 82553; 83690; 83880; 84484; 85025; 85379; 85610; 85730; 93005; 96361; 96374; 99285; C1758; J2405; J7030; Q0092

== ENCOUNTER 2016-12-29 07:39 | Inpatient (IN) | payer OTHER, MEDICAID ==
[~2016-12-29] VITALS: Ht 165.1 cm; Wt 54.4 kg
[~2016-12-29 07:39] MED LIST changes: +ACET-8331 GT; -ACETAMINOPHEN-H1 TA3 GT; -ACETAMINOPHEN650 M6 GT; +ASCO500T45 GT; +ATI.5 GT; -ATIVAN0.5 MG GT; -ATIVAN1 MG GT; +BENZ1GEL49 TP; +BISA10SU1 RC; +CHOL200072 GT; -CLINDAMYCIN PHO TP; -DIAMOX250 MG GT; +DIT5 GT; -DITROPAN5 MG GT; -DULCOLAX10 MG RC; +ESOM40EC GT; -FLEET ENEMA118 ML RC; -FLOMAX0.4 MG PO; -FLORASTOR250 MG GT; -HEPARIN SOD5000 U/M1 SUBQ; -LEVAQUIN750 MG GT; +LORA-476 GT; +METO5SOL GT; +MULT-298 GT; -MULTIVITAMIN1 TA1 GT; +NA P135N9 RC; -NEXIUM40 MG GT; +ONDA4ODT1 GT; +PANT40EC GT; -PROTONIX40 MG GT; +SYN.05 GT; -SYNTHROID0.05 MG GT; -VITAMIN C500 M8 GT; -VITAMIN D32000 I1 GT; -ZOFRAN ODT4 MG GT; +[UNRECOGNIZED DRUG - CODE] PO; +[UNRECOGNIZED DRUG - CODE] TP; -[UNRECOGNIZED DRUG - OTHER] TP; -clindamycin IV; -rocephin IV
--- NOTE | 2016-12-29 07:39 | NUR ---
Patient BIBA ACLS, transferred to bed 7. RN evaluating patient at bedside.
--- NOTE | 2016-12-29 07:40 | NUR ---
56 M BIBA C/O PT BIBA SOB [id number]; PER MEMS PROCESS ENGINEER, C[facility]IVER [facility] STATED PT PER HAS HAD A COLD FOR THE PAST COUPLE DAYS; RR ARE ARE TACHYPENIC AND LABORED; PT IS NORMALLY APHASIA PER MEMS PROCESS ENGINEER; PT ALSO HAS HX OF MENTAL RETARDATION; PT IS ALERT AND RESPONDS TO VERBAL STIMULI; SKIN IS WARM TO THE TOUCH AND PINK/DRY; VSS; NAD AT THIS TIME; PATIENT POSITIONED FOR COMFORT; HOB ELEVATED; BEDRAILS UP X2; BED DOWN. ER MD MADE AWARE OF PT STATUS. WILL CONTINUE TO MONITOR.
--- NOTE | 2016-12-29 07:44 | NUR ---
Dr. Chapman evaluating patient at bedside.
[2016-12-29 07:45] VITALS: BP 128/84
[2016-12-29] MEDS ORDERED: IPRATROPIUM 0.02% 0.5 MG/2.5 ML NEBU INH ONE (07:50)
[2016-12-29] MEDS ORDERED: DEXAMETHASONE 10 MG/ML VIAL IVP ONE (07:50)
[2016-12-29] MEDS ORDERED: ALBUTEROL 0.083% 2.5 MG/3 ML NEBU INH ONE (07:50)
[2016-12-29] MEDS ORDERED: NACL 0.9% 1,000 ML IV ONE (07:50)
[2016-12-29 08:09] LABS: BASOPHILS # (AUTO) 0.2 K/uL (0.00-0.22); EOSINOPHILS # (AUTO) 0.3 K/uL (0-0.4); EOSINOPHILS % (AUTO) 3.5 % (0.0-4.0); HEMATOCRIT 42.3 % (36-52); HEMOGLOBIN 13.7 g/dL (12.0-18.0); LYMPHOCYTES # (AUTO) 1.7 K/uL (2.0-11.5); LYMPHOCYTES % (AUTO) 22.6 % (20.5-51.1); MEAN CORPUSCULAR HEMOGLOBIN 27 pg (27-31); MEAN CORPUSCULAR HGB CONC 32 g/dL (33-37); MEAN CORPUSCULAR VOLUME 84 fL (80-94); MONOCYTES # (AUTO) 0.8 K/uL (0.8-1.0); MONOCYTES % (AUTO) 11.2 % (1.7-9.3); NEUTROPHILS # (AUTO) 4.4 K/uL (1.8-7.7); NEUTROPHILS % (AUTO) 59.7 % (42.2-75.2); PLATELET COUNT (AUTO) 218 K/uL (140-450); RED BLOOD CELL COUNT(AUTO) 5.05 MIL/uL (4.20-6.10); RED CELL DISTRIBUTION WIDTH 12.9 % (11.6-13.7); WHITE BLOOD COUNT (AUTO) 7.4 K/uL (4.8-10.8)
--- NOTE | 2016-12-29 08:10 | NUR ---
Breathing treatment administered by respiratory therapist at bedside.
[2016-12-29 08:25] LABS: ANION GAP 12.9 (8-16); CARBON DIOXIDE 25.3 mmol/L (21-32); CREATININE 0.7 mg/dL (0.7-1.3); POTASSIUM 4.2 mmol/L (3.5-5.1)
[2016-12-29 08:31] LABS: ALBUMIN 3.4 g/dL (3.4-5.0); TOTAL BILIRUBIN 0.2 mg/dL (0.0-1.0)
--- NOTE | 2016-12-29 09:14 | NUR ---
PATIENT LYING ON RIGHT SIDE; NAD; RESPIRATION STATUS IMPROVED; RR ARE TACHYPNEIC AND UNLABORED; WILL CONTINUE TO MONITOR
[2016-12-29 09:18] LABS: APPEARANCE,URINE HAZY (CLEAR); BILIRUBIN,URINE NEGATIVE (NEGATIVE); BLOOD, URINE TRACE-I (NEGATIVE); COLOR,URINE YELLOW (YELLOW); LEUKOCYTE ESTERASE ,URINE 2+ (NEGATIVE); NITRITE, URINE NEGATIVE (NEGATIVE); UGLUCOSE NEGATIVE (NEGATIVE)
[2016-12-29 09:32] LABS: RBC,URINE NONE SEEN /HPF (0-5)
[2016-12-29 09:33] LABS: WBC,URINE 80-100 /HPF (0-5)
[2016-12-29] MEDS ORDERED: LEVOFLOXACIN 500 MG/D5W PREMIX 100 ML IV ONE (10:05)
[2016-12-29] MEDS ORDERED: ONDANSETRON 4 MG ODT PO PRN (10:40)
[2016-12-29] MEDS ORDERED: CLINDAMYCIN PHOS TP PRN (10:40)
[2016-12-29] MEDS ORDERED: BENZOYL PEROX TP PRN (10:40)
[2016-12-29] MEDS ORDERED: SILVER NITRATE APPLICATOR 1 EA SWAB TP PRN (10:40)
[2016-12-29] MEDS ORDERED: SODIUM PHOSPHATE 118 ML ENEM RC PRN (10:40)
[2016-12-29] MEDS ORDERED: BISACODYL 10 MG SUPP RC PRN (10:40)
[2016-12-29] MEDS ORDERED: NON-FORMULARY ITEM (Acetaminophen 650 MG) GT PRN (10:40)
[2016-12-29] MEDS ORDERED: [UNRECOGNIZED DRUG - OTHER] TP PRN (10:40)
[2016-12-29] MEDS ORDERED: HYDROcodone/APAP 5/325 MG 1 TAB TAB GT PRN (10:45)
[2016-12-29] MEDS ORDERED: LORazepam 2 MG/ML VIAL IVP PRN (10:45)
[2016-12-29] MEDS: DEXT 5% /NACL 0.9% 1,000 ML IV SCH ×2 (10:45→21:32)
[2016-12-29] MEDS ORDERED: ACETAMINOPHEN 325 MG TAB GT PRN (10:45)
[2016-12-29] MEDS: METOCLOPRAMIDE 10 MG/10 ML SYRP UDC GT SCH ×2 (11:30→15:32)
--- NOTE | 2016-12-29 11:30 | NUR ---
Louis tenoriojim in ED - 12/29/16 at 1132 by SHIRLEY ER MD MICHELLE BY BEDSIDE EXAMINING PT; ALSO [facility] BY BEDSIDE GETTING PT READY FOR PT TO BE TRANSFERRED; PT IS AOX4, DENIES ANY CP OR SOB; NO ACUTE NEURO DEFICITS NOTED; NAD; STABLE FOR TRANSFER PER AIME MICHELLE
--- NOTE | 2016-12-29 11:44 | NUR ---
Patient will be admitted to care of [facility]. Admited to TEle. Will go to room 108A. Belongings list completed. Report to Judie PEREZ.
[2016-12-29 12:30] VITALS: BP 133/78
--- NOTE | 2016-12-29 12:30 | NUR ---
PT ARRIVE FROM ER VIA GURNEY. 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 WILL CONTINUE TO MONITOR. Addendum: 12/29/16 at 1357 by Mendy Arevalo RN GILL IN PLACE DRAINING CLEAR YELLOW URINE
[2016-12-29] MEDS: IPRATROPIUM 0.02% 0.5 MG/2.5 ML NEBU IH SCH ×2 (13:17→19:18)
[2016-12-29] MEDS: ALBUTEROL 0.083% 2.5 MG/3 ML NEBU IH SCH ×2 (13:17→19:18)
--- NOTE | 2016-12-29 14:25 | NUR ---
PT CURRENTLY SLEEPING AWAKENS TO SHAKE, NO S/S OF RESPIRATORY DISTRESS NOTED. ALL SAFETY PRECAOUTIONS MET. CALL LIGHT WITHIN REACH, WILL CONTINUE TO MONITOR.
--- NOTE | 2016-12-29 15:32 | NUR ---
DUE MEDICATIONS GIVEN, PT TOLERATED WELL. ALL NEEDS MET. PT IN COMFORTABLE POSITION ALL SAFETY PRECAUTIONS MET.
[2016-12-29 16:00] VITALS: BP 123/72
--- NOTE | 2016-12-29 17:25 | NUR ---
PT IS AWAKE, ALL SAFETY PRECAUTIONS MET, ALL SAFETY PRECAUTIONS MET. CALL LIGHT WITHIN REACH. WILL CONTINUE TO MONITOR.
--- NOTE | 2016-12-29 19:05 | NUR ---
ENDORSED PLAN OF CARE TO NIGHT NURSE, PT IN STABLE CONDITION, CURRENTLY AWAKE NO S/S OF DISTRESS NOTED.
--- NOTE | 2016-12-29 19:30 | NUR ---
RECEIVED REPORT FROM DAY RN AT BEDSIDE, PATIENT IS NON VERBAL RESTING IN BED, NO SOB OR SIGN OF DISTRESS, ON O2 AT 2L VIA NC. IV TO RIGHT WRIST PATENT AND INTACT. G-TUBE PRESENT CLAMPED, FREE OF ANY SIGN OF INFECTION. SKIN INTACT. GILL PRESENT WITH CLEAR YELLOW URINE. PATIENT DOES NOT APPEAR TO BE IN PAIN, FLACC-0. SAFETY PRECAUTIONS IN PLACE, BED LOW, CALL LIGHT WITHIN REACH. WILL CONTINUE TO MONITOR.
[2016-12-29 20:00] VITALS: BP 125/76
[2016-12-29] MEDS ORDERED: ACETAZOLAMIDE 250 MG PO SCH (21:00)
[2016-12-29] MEDS: LORazepam 0.5 MG TAB GT SCH (21:36)
[2016-12-29] MEDS: acetaZOLAMIDE 250 MG TAB GT SCH (21:36)
--- NOTE | 2016-12-29 21:50 | NUR ---
PM MEDS ADMINISTERED THROUGH G TUBE, PATIENT RESTING IN BED, NO SIGN OF DISTRESS, SAFETY PRECAUTIONS IN PLACE WILL CONTINUE TO CLOSELY MONITOR
--- NOTE | 2016-12-29 23:00 | NUR ---
PATIENT RESTING IN BED, NO SIGN OF DISTRESS, WILL CONTINUE TO CLOSELY MONITOR
[2016-12-30] VITALS: BP 120/68
--- NOTE | 2016-12-30 00:35 | NUR ---
VITAL SIGNS STABLE, NO SIGN OF DISTRESS, CALL LIGHT WITHIN REACH. WILL CONTINUE TO MONITOR.
[2016-12-30] MEDS: ALBUTEROL 0.083% 2.5 MG/3 ML NEBU IH SCH ×4 (01:11→20:04)
[2016-12-30] MEDS: IPRATROPIUM 0.02% 0.5 MG/2.5 ML NEBU IH SCH ×4 (01:11→20:04)
--- NOTE | 2016-12-30 02:40 | NUR ---
PATIENT RESTING IN BED, NO DISTRESS, CALL LIGHT WITHIN REACH. WILL CONTINUE TO MONITOR
[2016-12-30 04:00] VITALS: BP 111/79
--- NOTE | 2016-12-30 04:20 | NUR ---
VITAL SIGNS STABLE, NO SOB OR SIGN OF DISTRESS, CALL LIGHT WITHIN REACH. WILL CONTINUE TO MONITOR
[2016-12-30] MEDS: DEXT 5% /NACL 0.9% 1,000 ML IV SCH ×2 (06:30→10:45)
[2016-12-30] MEDS: METOCLOPRAMIDE 10 MG/10 ML SYRP UDC GT SCH ×3 (06:31→15:57)
[2016-12-30 06:47] LABS: BASOPHILS # (AUTO) 0.1 K/uL (0.00-0.22); BASOPHILS % (AUTO) 0.8 % (0.0-2.0); EOSINOPHILS # (AUTO) 0.1 K/uL (0-0.4); EOSINOPHILS % (AUTO) 0.7 % (0.0-4.0); HEMOGLOBIN 12.5 g/dL (12.0-18.0); LYMPHOCYTES # (AUTO) 0.5 K/uL (2.0-11.5); LYMPHOCYTES % (AUTO) 5.7 % (20.5-51.1); MEAN CORPUSCULAR HEMOGLOBIN 28 pg (27-31); MEAN CORPUSCULAR HGB CONC 33 g/dL (33-37); MEAN CORPUSCULAR VOLUME 84 fL (80-94); MONOCYTES # (AUTO) 0.4 K/uL (0.8-1.0); MONOCYTES % (AUTO) 4.6 % (1.7-9.3); NEUTROPHILS % (AUTO) 88.2 % (42.2-75.2); PLATELET COUNT (AUTO) 220 K/uL (140-450); RED BLOOD CELL COUNT(AUTO) 4.55 MIL/uL (4.20-6.10); RED CELL DISTRIBUTION WIDTH 12.5 % (11.6-13.7); WHITE BLOOD COUNT (AUTO) 8.1 K/uL (4.8-10.8)
[2016-12-30 06:48] LABS: CARBON DIOXIDE 22.9 mmol/L (21-32); CREATININE 0.6 mg/dL (0.7-1.3); POTASSIUM 3.9 mmol/L (3.5-5.1)
--- NOTE | 2016-12-30 07:30 | NUR ---
RECEIVE PATIENT REPORT AT BEDSIDE. PATIENT ASLEEP BUT EASILY AROUSABLE. NO S/S OF DISTRESS NOTED. PATIENT ON 2L O2. GILL CATHETER IN PLACE, DRAINING CLEAR YELLOW URINE. G-TUBE IN PLACE. IV LINE TO THE RIGHT WRIST INTACT WITH IVF INFUSING WELL. PATIENT ON TELE MONITORING. BED LOWERED WITH CALL LIGHT WITHIN REACH. WILL CONTINUE TO MONITOR
--- NOTE | 2016-12-30 07:34 | NUR ---
ENDORSED PATIENT TO DAY RN AT BEDSIDE, PATIENT IN STABLE CONDITION
[2016-12-30 08:00] VITALS: BP 142/79
--- NOTE | 2016-12-30 08:45 | NUR ---
PATIENT HAS BEEN SCREENED AND CATEGORIZED HIGH NUTRITION RISK. PATIENT WILL BE SEEN WITHIN 1-2 DAYS OF ADMISSION. 12/29/16-12/30/[address]
[2016-12-30] MEDS ORDERED: ASCORBIC ACID 500 MG/5 ML ORASYR GT SCH (09:00)
[2016-12-30] MEDS ORDERED: NON-FORMULARY ITEM (Cholecalciferol (Vitamin D3) (Vitamin D3) 2,000 IU) GT SCH (09:00)
[2016-12-30] MEDS ORDERED: NON-FORMULARY ITEM (Esomeprazole Magnesium* (Nexium*) 40 MG) GT SCH (09:00)
[2016-12-30] MEDS ORDERED: PANTOPRAZOLE 40 MG TABEC PO SCH (09:00)
[2016-12-30] MEDS: CHOLECALCIFEROL 1,000 IU TAB GT SCH (09:59)
[2016-12-30] MEDS: acetaZOLAMIDE 250 MG TAB GT SCH ×2 (09:59→21:07)
[2016-12-30] MEDS: LORazepam 1 MG TAB GT SCH (10:00)
[2016-12-30] MEDS: OXYBUTYNIN 5 MG TAB GT SCH (10:00)
[2016-12-30] MEDS: LEVOTHYROXINE 0.05 MG TAB GT SCH (10:00)
[2016-12-30] MEDS: MULTIVITAMIN 5 ML ORASYR GT SCH (10:00)
[2016-12-30] MEDS: LANSOPRAZOLE 30 MG CAPDR GT SCH (10:00)
[2016-12-30] MEDS: LEVOFLOXACIN 500 MG/D5W PREMIX 100 ML IV SCH (10:45)
[2016-12-30 12:00] VITALS: BP 110/76
--- NOTE | 2016-12-30 14:00 | NUR ---
PATIENT RESTING COMFORTABLY IN BED. NO S/S OF DISTRESS NOTED
--- NOTE | 2016-12-30 15:20 | NUR ---
12/30/16 RD INITIAL ASSESSMENT COMPLETED PLEASE REFER TO NUTRITION ASSESSMENT UNDER CARE ACTIVITY FOR ESTIMATED NUTRITIONAL NEEDS. 1. INITIATE TUBE FEEDING DIABETISOURCE AT 30 ML. ADVANCE 10 ML EVERY SIX HOURS TO GOAL RATE OF 60 (PROVIDE 1728 CALORIES/HR + 86 G PROTEIN/HR). 2. RD TO FOLLOW UP WITHIN 2-3 DAYS; HIGH RISK ALISIA CARDONA, RD
[2016-12-30 16:00] VITALS: BP 113/76
--- NOTE | 2016-12-30 16:05 | NUR ---
G-TUBE FEEDING INITIATED
--- NOTE | 2016-12-30 19:25 | NUR ---
PATIENT REPORT GIVEN AT BEDSIDE. PATIENT ENDORSED IN STABLE CONDITION
--- NOTE | 2016-12-30 19:30 | NUR ---
RECEIVED REPORT FROM DAY RN AT BEDSIDE, PATIENT IS RESTING IN BED, NON VERBAL ON O2 AT 2L VIA NC. NO SOB OR SIGN OF DISTRESS. IV TO RIGHT WRIST, PATENT AND INTACT. SKIN INTACT, WITH GTUBE TO TUBE FEEDING, DIABETISOURCE AT 30ML/H. GILL PRESENT WITH CLEAR YELLOW URINE. SAFETY MEASURES CHECKED, CALL LIGHT WITHIN REACH. WILL CONTINUE TO CLOSELY MONITOR.
[2016-12-30 20:00] VITALS: BP 111/47
--- NOTE | 2016-12-30 20:14 | NUR ---
I TRY TO FIX THE BIPAP MASK ON PT FACE AND HE BECAME AGITATED, AN PRIOR THE BIPAP, PT SAT WAS 1OO% ON 2L N/C AND I JUST FINISH HHN WITH ALBUTEROL AND ATROVENT AND HIS BS ARE BILAT CLEAR. CHRIS HERNANDEZ IS IN THE ROOM, AN CALL DR UMANA TO REPORT ,I TOOK OFF THE BIPAP MASK AND PLACED PT BACH WITH 2 L NASAL CANULA, SAT 100%
--- NOTE | 2016-12-30 20:16 | NUR ---
RT WAS AT BEDSIDE TO APPLY BIPAP, PATIENT BECAME AGITATED. PATIENT SATS OKAY ON 2L NASAL CANNULA. RT DOES NOT THINK PATIENT NEEDS THE BIPAP. WILL CONTACT DR UMANA AND/ OR HIMANSHU FOR RECOMMENDATIONS.
--- NOTE | 2016-12-30 21:00 | NUR ---
RT TALKED TO DR DOWNS, DR BARI RANDALL TO PUT THE BIPAP PRN.
[2016-12-30] MEDS: LORazepam 0.5 MG TAB GT SCH (21:07)
--- NOTE | 2016-12-30 21:16 | NUR ---
PM MEDS ADMINISTERED THROUGH [employer]. PATIENT RESTING BE BE NO DISTRESS NOTED, WILL CONTINUE TO CLOSELY MONITOR
--- NOTE | 2016-12-30 21:22 | NUR ---
DR WISDOM AT BEDSIDE
[2016-12-31] VITALS: BP 119/67
[2016-12-31] MEDS: IPRATROPIUM 0.02% 0.5 MG/2.5 ML NEBU IH SCH ×5 (00:27→23:55)
[2016-12-31] MEDS: ALBUTEROL 0.083% 2.5 MG/3 ML NEBU IH SCH ×5 (00:27→23:56)
--- NOTE | 2016-12-31 00:28 | NUR ---
VITAL SIGNS STABLE, NO SIGN OF DISTRESS, WILL CONTINUE TO CLOSELY MONITOR. TUBE FEEDING RESIDUAL 10ML, PATIENT TOLERATING WELL, INCREASED RATE TO 40ML/HR
--- NOTE | 2016-12-31 02:30 | NUR ---
PATIENT RESTING IN BED, NO SOB OR SIGN OF DISTRESS. WILL CONTINUE TO FREQUENTLY MONITOR
[2016-12-31] MEDS: DEXT 5% /NACL 0.9% 1,000 ML IV SCH ×3 (02:49→22:45)
[2016-12-31 04:00] VITALS: BP 126/71
--- NOTE | 2016-12-31 04:30 | NUR ---
VITAL SIGNS STABLE, NO SOB OR SIGN OF DISTRESS, WILL CONTINUE TO CLOSELY MONITOR
--- NOTE | 2016-12-31 06:15 | NUR ---
ENDORSED FROM [facility]AR[facility],NOC DELIVERY RECRUITER DURING SHIFT REPORT AND NOTED ON 12/30/2016 AT 2014 PATIENT IS REFUSING TO USE BIPAP TO MASK NOC DELIVERY RECRUITER CONTACTED DR. Chelly UMANA AND DR. AMIRA DOWNS REPORTED TO FOREMENTIONED MD'S OF PATIENT REFUSAL TO USE BIPAP PER MD'S "OK PRN"
[2016-12-31] MEDS: METOCLOPRAMIDE 10 MG/10 ML SYRP UDC GT SCH ×3 (06:56→16:20)
--- NOTE | 2016-12-31 07:29 | NUR ---
ENDORSED PATIENT TO DAY RN AT BEDSIDE, PATIENT IN STABLE CONDITION.
--- NOTE | 2016-12-31 07:54 | NUR ---
RECEIVED REPORT FROM DAVID PEREZ FOR CONTINUITY OF CARE. PATIENT AWAKE NON-VERBAL , NO S/S OF RESP DISTRESS NOTED O2 2L/NC. NO DISCOMFORT NOTED . IV SITE RIGHT WRIST G 20 INTACT AND PATENT. IVF INFUSING WELL. G-TUBE FEEDING RUNNING 45ML/HR WILL CHECK RESIDUAL AND ADJUST THE FEEDING . WILL REPOSITION Q 2 HRS TO PREVENT SKIN BREAKDOWN. PLAN OF CARE DISCUSSED WITH THE PATIENT VITALS STABLE WILL CONTINUE TO MONITOR.
--- NOTE | 2016-12-31 07:55 | NUR ---
AWAKE HX: MENTAL RETARDATION UNABLE TO FOLLOW MARKET RESEARCH INTERVIEWER VERBAL COMMANDS RECEIVED ON SUPPLEMENTAL OXYGEN AT 2 LPM VIA NC HHN THERAPY GIVEN ORDERED BIPAP IN AT BEDSIDE
[2016-12-31 08:00] VITALS: BP 133/72
--- NOTE | 2016-12-31 09:15 | NUR ---
RECEIVED A CALL FROM LAB THAT PATIENT IS +FOR MRSA OF NARES , NOTIFIED MD PROTOCOL INITIATED
[2016-12-31] MEDS: MULTIVITAMIN 5 ML ORASYR GT SCH (09:30)
[2016-12-31] MEDS: CHOLECALCIFEROL 1,000 IU TAB GT SCH (09:33)
[2016-12-31] MEDS: LORazepam 1 MG TAB GT SCH (09:33)
[2016-12-31] MEDS: OXYBUTYNIN 5 MG TAB GT SCH (09:33)
[2016-12-31] MEDS: LEVOTHYROXINE 0.05 MG TAB GT SCH (09:33)
[2016-12-31] MEDS: LANSOPRAZOLE 30 MG CAPDR GT SCH (09:33)
[2016-12-31] MEDS: LEVOFLOXACIN 500 MG/D5W PREMIX 100 ML IV SCH (09:56)
[2016-12-31] MEDS: acetaZOLAMIDE 250 MG TAB GT SCH ×2 (09:58→21:11)
[2016-12-31] MEDS ORDERED: ASCORBIC ACID 500 MG TAB GT SCH (10:00)
--- NOTE | 2016-12-31 10:23 | NUR ---
DUE MEDS GIVEN THROUGH G-TUBE TOLERATED WELL NO RESIDUAL FOR FEEDING ,INCREASE TO 50 ML /HR , MORNING CARE GIVEN REPOSITIONED TO THE RIGHT SIDE F/C DRAIN CLEAR YELLOW URINE .
--- NOTE | 2016-12-31 11:00 | NUR ---
DR DOWNS VISITED PATIENT NO NEW ORDER
[2016-12-31] MEDS: MUPIROCIN 2% OINT 22 GM TUBE TP SCH (11:54)
[2016-12-31] MEDS: CHLORHEXADINE GLUC 2% CLOTH TP SCH (11:56)
--- NOTE | 2016-12-31 12:06 | NUR ---
Social Service Note: I called Marline Jamison from [facility], no answer, left message. I also called Lyn Lopez from [facility], no answer, left message.
[2016-12-31 12:26] VITALS: BP 109/58
--- NOTE | 2016-12-31 13:12 | NUR ---
DR UMANA A VISITED PATIENT SPOKE WITH CELL INSPECTOR WILL CARRY OUT NEW ORDER.
[2016-12-31 16:17] VITALS: BP 108/64
--- NOTE | 2016-12-31 16:21 | NUR ---
PT HAD NO BM DULCOLAX SUPPOSITORY GIVEN . REPOSITIONED ,AND VITALS STABLE AT THIS TIME.
--- NOTE | 2016-12-31 18:00 | NUR ---
NO BM YET , SAFETY MAINTAINED CALL LIGHT IN REACH , STABLE CONDITION.
--- NOTE | 2016-12-31 19:30 | NUR ---
RECEIVED REPORT FROM DAY RN AT BEDSIDE, PATIENT IS RESTING IN BED, NON VERBAL ON O2 AT 2L VIA NC. NO SOB OR SIGN OF DISTRESS. IV TO RIGHT WRIST, PATENT AND INTACT. SKIN INTACT, WITH GTUBE TO TUBE FEEDING DIABETISOURCE AT 60ML/H. GILL PRESENT WITH CLEAR YELLOW URINE. SAFETY MEASURES CHECKED, CALL LIGHT WITHIN REACH. WILL CONTINUE TO CLOSELY MONITOR.
[2016-12-31 20:00] VITALS: BP 103/50
--- NOTE | 2016-12-31 21:00 | NUR ---
RECEIVED CALL FROM FAITH RN, PATIENTS RN AT THE BOARD AND RETIREMENT. PER FAITH REMINDING ME TO APPLY THE SLEEP APNEA MACHINE TO PATIENT TO GET AT LEAST 7 HOURS OF TESTING. WILL START SOON.
[2016-12-31] MEDS: LORazepam 0.5 MG TAB GT SCH (21:11)
--- NOTE | 2016-12-31 21:40 | NUR ---
PATIENT HAD LARGE BM, CLEANED AND REPOSITIONED, PM MEDS GIVEN PER MD ORDER, THROUGH G TUBE, PATIENT TOLERATING FEEDING WELL WITH NO RESIDUAL. PER REQUEST OF PATIENTS BOARD AND CARE RN FAITH, STARTED THE PATIENT ON THE SLEEP APNEA TEST MACHINE. REMOVED OXYGEN, WILL CONTINUE TO MONITOR
--- NOTE | 2016-12-31 22:30 | NUR ---
PATIENT RESTING IN BED AWAKE, SATING AT 96% ON ROOM AIR. WILL CONTINUE TO MONITOR FREQUENTLY.
[2017-01-01] VITALS: BP 121/71
--- NOTE | 2017-01-01 00:30 | NUR ---
VITAL SIGNS STABLE. PATIENT RESTING IN BED, NO SIGN OF DISTRESS, PATIENT HAD 2ND LARGE BM, CLEANED AND REPOSITIONED
--- NOTE | 2017-01-01 02:02 | NUR ---
PATIENT RESTING IN BED, NO SIGN OF DISTRESS, WILL CONTINUE TO MONITOR.
[2017-01-01 04:00] VITALS: BP 119/84
--- NOTE | 2017-01-01 04:18 | NUR ---
VITALS SIGNS STABLE, NO SIGN OF DISTRESS, .WILL CONTINUE TO MONITOR
[2017-01-01 06:26] LABS: BASOPHILS # (AUTO) 0.2 K/uL (0.00-0.22); BASOPHILS % (AUTO) 2.3 % (0.0-2.0); EOSINOPHILS # (AUTO) 0.1 K/uL (0-0.4); EOSINOPHILS % (AUTO) 1.5 % (0.0-4.0); HEMATOCRIT 39.2 % (36-52); HEMOGLOBIN 12.7 g/dL (12.0-18.0); LYMPHOCYTES # (AUTO) 1.4 K/uL (2.0-11.5); LYMPHOCYTES % (AUTO) 17.5 % (20.5-51.1); MEAN CORPUSCULAR HEMOGLOBIN 27 pg (27-31); MEAN CORPUSCULAR HGB CONC 33 g/dL (33-37); MEAN CORPUSCULAR VOLUME 84 fL (80-94); MONOCYTES # (AUTO) 0.8 K/uL (0.8-1.0); MONOCYTES % (AUTO) 10.1 % (1.7-9.3); NEUTROPHILS # (AUTO) 5.6 K/uL (1.8-7.7); NEUTROPHILS % (AUTO) 68.6 % (42.2-75.2); PLATELET COUNT (AUTO) 209 K/uL (140-450); RED BLOOD CELL COUNT(AUTO) 4.64 MIL/uL (4.20-6.10); RED CELL DISTRIBUTION WIDTH 12.8 % (11.6-13.7)
[2017-01-01] MEDS: METOCLOPRAMIDE 10 MG/10 ML SYRP UDC GT SCH ×3 (06:44→16:30)
[2017-01-01 06:51] LABS: ANION GAP 15.3 (8-16); CARBON DIOXIDE 23.4 mmol/L (21-32); CREATININE 0.6 mg/dL (0.7-1.3); POTASSIUM 3.7 mmol/L (3.5-5.1)
--- NOTE | 2017-01-01 07:33 | NUR ---
ENDORSED PATIENT TO DAY RN AT BEDSIDE, PATIENT IN STABLE CONDITION
--- NOTE | 2017-01-01 07:34 | NUR ---
RECEIVED HANDOFF REPORT FROM PM RN. PATIENT NONVERBAL. RT IN TO SEE PATIENT. FLACC 0. IV SITE PATENT AND INTACT. PATIENT G-TUBE PATENT AND INTACT. NO SIGNS OR SYMPTOMS OF ACUTE DISTRESS NOTED. SAFETY MEASURES ENSURED. CALL LIGHT WITHIN REACH. WILL CONTINUE TO MONITOR.
[2017-01-01 07:35] LABS: WHITE BLOOD COUNT (AUTO) 8.1 K/uL (4.8-10.8)
[2017-01-01] MEDS: ALBUTEROL 0.083% 2.5 MG/3 ML NEBU IH SCH ×2 (07:50→13:42)
[2017-01-01] MEDS: IPRATROPIUM 0.02% 0.5 MG/2.5 ML NEBU IH SCH ×2 (07:50→13:42)
[2017-01-01 08:00] VITALS: BP 119/79
[2017-01-01] MEDS: DEXT 5% /NACL 0.9% 1,000 ML IV SCH (08:45)
[2017-01-01] MEDS ORDERED: ASCORBIC ACID 500 MG TAB GT SCH (09:00)
[2017-01-01] MEDS: LEVOTHYROXINE 0.05 MG TAB GT SCH (09:58)
[2017-01-01] MEDS: CHOLECALCIFEROL 1,000 IU TAB GT SCH (09:58)
--- NOTE | 2017-01-01 09:58 | NUR ---
PATIENT GIVEN AM MEDS WITH EDUCATION. PATIENT NON VERBAL. G TUBE PATENT AND INTACT. NO RESIDUAL NOTED. NO SIGNS OR SYMPTOMS OF ACUTE DISTRESS NOTED. CALL LIGHT WITHIN REACH. WILL CONTINUE TO MONITOR.
[2017-01-01] MEDS: acetaZOLAMIDE 250 MG TAB GT SCH (09:59)
[2017-01-01] MEDS: LANSOPRAZOLE 30 MG CAPDR GT SCH (09:59)
[2017-01-01] MEDS: MULTIVITAMIN 5 ML ORASYR GT SCH (09:59)
[2017-01-01] MEDS: OXYBUTYNIN 5 MG TAB GT SCH (09:59)
[2017-01-01] MEDS: LORazepam 1 MG TAB GT SCH (09:59)
[2017-01-01] MEDS: LEVOFLOXACIN 500 MG/D5W PREMIX 100 ML IV SCH (10:02)
[2017-01-01 12:00] VITALS: BP 119/82
[2017-01-01] MEDS: CHLORHEXADINE GLUC 2% CLOTH TP SCH (12:12)
[2017-01-01] MEDS: MUPIROCIN 2% OINT 22 GM TUBE TP SCH (12:13)
[2017-01-01] MEDS ORDERED: DIT5 GT (12:57)
[2017-01-01] MEDS ORDERED: LEVO750T2 GT (12:57)
--- NOTE | 2017-01-01 13:54 | NUR ---
PATIENT AWAKE. FLACC 0. NO SIGNS OR SYMPTOMS OF ACUTE DISTRESS NOTED. CALL LIGHT WITHIN REACH. WILL CONTINUE TO MONITOR.
--- NOTE | 2017-01-01 15:03 | NUR ---
3334 I called Marline Jamison from [facility] [facility] to inform her that pt has been cleared for discharge. Marline stated that she would have a telephone directory distributor driver pepper picker pt after 4pm and that they will bring pt's own w/c for transport. Gomez eid RN aware.
[2017-01-01 16:00] VITALS: BP 131/62
--- NOTE | 2017-01-01 17:17 | NUR ---
TOMAS FROM PATIENTS BOARDING CARE TO INVAS TECH PATIENT. PATIENT IN STABLE CONDITION. NO SIGNS OR SYMPTOMS OF ACUTE DISTRESS NOTED. DISCHARGE INSTRUCTIONS GIVEN TO WORK DISTRIBUTOR. WORK DISTRIBUTOR VERBALIZED UNDERSTANDING. IV TAKEN OUT. TIP INTACT. G-TUBE DISCONNECTED. GILL PATENT AND INTACT. PATIENT TAKEN TO LOBBY IN WHEELCHAIR.
== END 2017-01-01 17:34 | disposition home or self-care (01) | DRG 871 ==
LOC: MED 07:39 → MTU 10:44
PROVIDERS: ADMIT Preventive Medicine Preventive Medicine/Occupational Environmental Medicine; ATTEND Preventive Medicine Preventive Medicine/Occupational Environmental Medicine
DX: A41.9 Sepsis, unspecified organism (principal); J96.01 Acute respiratory failure with hypoxia; N39.0 Urinary tract infection, site not specified; F72 Severe intellectual disabilities; I50.9 Heart failure, unspecified; J45.909 Unspecified asthma, uncomplicated; G40.909 Epilepsy, unspecified, not intractable, without status epilepticus; E03.9 Hypothyroidism, unspecified; R13.10 Dysphagia, unspecified; B95.61 Methicillin susceptible Staphylococcus aureus infection as the cause of diseases classified elsewhere; G47.33 Obstructive sleep apnea (adult) (pediatric); Z93.1 Gastrostomy status; Z88.1 Allergy status to other antibiotic agents; Z91.012 Allergy to eggs; Z88.0 Allergy status to penicillin; Z91.018 Allergy to other foods; Z87.442 Personal history of urinary calculi; Z22.322 Carrier or suspected carrier of Methicillin resistant Staphylococcus aureus
CPT/HCPCS: 36415; 36600; 71010; 80048; 80053; 81001; 82803; 82948; 84484; 85025; 85379; 85651; 86140; 87040; 87081; 87086; 87186; 93005; 93970; 94640; 96361; 96365; 96375; 99285; C1758; J1100; J1644; J1956; J7030; J7042; J7613; J7644; J8597; Q0092

== ENCOUNTER 2017-09-27 08:24 | Inpatient (IN) | payer OTHER, MEDICAID ==
[~2017-09-27] VITALS: Ht 162.6 cm; Wt 70.8 kg
[~2017-09-27 08:24] MED LIST changes: -ESOM40EC GT; +LEVO750T2 GT
--- NOTE | 2017-09-27 08:29 | NUR ---
pt transferred from [facility] to bed 10
[2017-09-27 08:30] VITALS: BP 100/69
--- NOTE | 2017-09-27 08:35 | NUR ---
SUCTIONED WITH SMALL AMT. CLEAR SECREATION
--- NOTE | 2017-09-27 08:48 | NUR ---
PT KIRBY FROM [facility] FOR C/O COUGH WITH GREEN SPUTUM AND WARM TO TOUCH FOR 1 DAY. PT WITH GTUBE IN PLACE TO LUQ, INSERTION SITE HAS HEALTHY APPEARENCE, FLUSHES WELL. PT LUNGS CTA BILATERALLY, PLACED ON O2 MONITORS, O2 SATS 99%. PT WITH H/O MENTAL RETARDATION, APHASIA, MS. PER SOFTWARE DESIGN MANAGER AT BEDSIDE, PT DOES NOT SPEAK OR RESPOND, DOES NOT FOLLOW COMMANDS. PT STAYS LAYING WITH LEGS FLEXED, AND ARMS RESTING AT SIDE. PTS LEGS AREA RIGID, SMALL PRESSURE AREA TO RT HEAL OF FOOT, FOAM PAD IN PLACED TO PREVENT WORSEING. PT VS WNL. PT COMES WITH 22G IV TO RH PLACED BY EMS. IVF NS RUNNING. PENDING MD LOGAN.
[2017-09-27] MEDS ORDERED: PRON INH (09:10)
--- NOTE | 2017-09-27 09:13 | NUR ---
PT PLACED IN GOWN, POSITIONED FOR COMFORT. REMAINS ON ALL MONIOTRS. LAB AND RT AT BEDSIDE.
[2017-09-27] MEDS ORDERED: NACL 0.9% 1,000 ML IV ONE (09:30)
--- NOTE | 2017-09-27 09:36 | NUR ---
UNABLE TO DRAW ABG AT THIS TIME ATTEMPT X 3 B/P 99/67 KASSIDY/RN NOTIFIED DATA WAREHOUSE ADMINISTRATOR TO ATTEMPT AT A LATER TIME
--- NOTE | 2017-09-27 09:38 | NUR ---
VERBAL ORDER DR BURGESS FOR STRAIGHT CATH TO OBTAIN URINE SAMPLE
--- NOTE | 2017-09-27 10:08 | NUR ---
STRAIGHT CATH COMPLETE. PT TOLERATED WELL, SAMPLE SENT WITH BOTTLING LINE ATTENDANT CORI.
[2017-09-27 10:20] LABS: BASOPHILS # (AUTO) 0.1 K/uL (0.00-0.22); BASOPHILS % (AUTO) 0.8 % (0.0-2.0); HEMATOCRIT 41.4 % (36-52); HEMOGLOBIN 13.5 g/dL (12.0-18.0); LYMPHOCYTES # (AUTO) 1.1 K/uL (2.0-11.5); LYMPHOCYTES % (AUTO) 9.8 % (20.5-51.1); MEAN CORPUSCULAR HEMOGLOBIN 27 pg (27-31); MEAN CORPUSCULAR HGB CONC 33 g/dL (33-37); MEAN CORPUSCULAR VOLUME 84.1 fL (80-94); MONOCYTES # (AUTO) 0.8 K/uL (0.8-1.0); MONOCYTES % (AUTO) 7.6 % (1.7-9.3); NEUTROPHILS # (AUTO) 9.1 K/uL (1.8-7.7); NEUTROPHILS % (AUTO) 81.8 % (42.2-75.2); PLATELET COUNT (AUTO) 238 K/uL (140-450); RED BLOOD CELL COUNT(AUTO) 4.92 MIL/uL (4.20-6.10); RED CELL DISTRIBUTION WIDTH 13.2 % (11.6-13.7); WHITE BLOOD COUNT (AUTO) 11.1 K/uL (4.8-10.8)
[2017-09-27 10:29] LABS: ANION GAP 14.8 (8-16); CARBON DIOXIDE 24.6 mmol/L (21-32); CREATININE 0.9 mg/dL (0.7-1.3); POTASSIUM 4.4 mmol/L (3.5-5.1)
[2017-09-27 10:30] LABS: BILIRUBIN,URINE NEGATIVE (NEGATIVE); BLOOD, URINE 1+ (NEGATIVE); COLOR,URINE YELLOW (YELLOW); LEUKOCYTE ESTERASE ,URINE TRACE (NEGATIVE); NITRITE, URINE POSITIVE (NEGATIVE); PH,URINE 7.5 (5.0-9.0); UGLUCOSE NEGATIVE (NEGATIVE)
[2017-09-27 10:32] LABS: APPEARANCE,URINE SLIGHTLY HAZY (CLEAR)
[2017-09-27 10:34] LABS: PROTHROMBIN TIME 11.2 secs (10.8-13.4)
[2017-09-27 10:53] LABS: ALBUMIN 3.4 g/dL (3.4-5.0); TOTAL BILIRUBIN 0.1 mg/dL (0.0-1.0)
[2017-09-27 10:55] LABS: RBC,URINE 0-5 (RARE) /HPF (0-5); WBC,URINE 0-5 (RARE) /HPF (0-5)
[2017-09-27] MEDS ORDERED: LEVOFLOXACIN 500 MG/D5W PREMIX 100 ML IV ONE (10:55)
[2017-09-27] MEDS ORDERED: ASPIRIN 81 MG TAB.CHEW GT ONE (10:55)
--- NOTE | 2017-09-27 11:06 | NUR ---
RT AT BEDSIDE TO OBTAIN ABG
--- NOTE | 2017-09-27 11:18 | NUR ---
Patient appears to be resting comfortably in bed. Vital Signs within normal limits. Respirations even and unlabored. PENDING ABG
[2017-09-27] MEDS ORDERED: ZOLPIDEM 5 MG TAB PO PRN (11:35)
[2017-09-27] MEDS ORDERED: HYDROcodone/APAP 5/325 MG 1 TAB TAB PO PRN (11:35)
[2017-09-27] MEDS ORDERED: DOCUSATE SODIUM 100 MG GELCAP PO PRN (11:35)
[2017-09-27] MEDS ORDERED: LORazepam 2 MG/ML VIAL IM/IVP PRN (11:35)
[2017-09-27] MEDS ORDERED: ACETAMINOPHEN 325 MG TAB PO PRN (11:35)
[2017-09-27] MEDS ORDERED: MORPHINE SULFATE 2 MG/ML SYR IVP PRN (11:35)
[2017-09-27] MEDS ORDERED: NITROGLYCERIN 0.4 MG TAB SL PRN (11:45)
[2017-09-27] MEDS ORDERED: LISINOPRIL 5 MG TAB PO SCH (11:57)
[2017-09-27] MEDS ORDERED: SIMVASTATIN 20 MG TAB PO SCH (11:58)
[2017-09-27] MEDS ORDERED: METOPROLOL 25 MG TAB PO SCH (11:58)
[2017-09-27 12:00] VITALS: BP 98/63
--- NOTE | 2017-09-27 12:00 | NUR ---
PATIENT WAS TRANSFERRED FROM ER. REPORT WAS GIVEN AT BEDSIDE. VS AND MRSA WERE TAKEN. PATIENT AWAKE, APHASIC. RESPIRATION EVEN, UNLABOR ON 2L NC. SKIN DRY AND WARM. IV PATENT AND INTACT. ENLISTED ADVISOR WAS AT BEDSIDE. ORIENTED PATIENT TO ROOM, STAFF, AND CALL LIGHT. PATIENT UNABLE TO COMPREHEND. BED AT LOW POSITION, SIDE RAILS UP. BED ALARM ACTIVE.
[2017-09-27] MEDS ORDERED: HEPARIN PER PHARMACY MC PRN (12:05)
[2017-09-27] MEDS ORDERED: hePARIN / DEXT 5% PREMIX 250 ML IV SCH ×2 (12:05→14:00)
--- NOTE | 2017-09-27 12:13 | NUR ---
[facility] Admited to TELE. Will go to [id number]. Belongings list completed. Report to BENJAMIN PEREZ.
--- NOTE | 2017-09-27 12:15 | NUR ---
PT ADMITTED TO FLOOR WITH SONDRA ROSS
[2017-09-27 12:25] LABS: CHOL/HDL RATIO 2.1 (1-4.5); MAGNESIUM 2.1 mg/dL (1.8-2.4); PHOSPHORUS 3.2 mg/dL (2.5-4.9); THYROID STIMULATING HORMONE 0.78 uIU/mL (0.34-3.74)
[2017-09-27] MEDS: NACL 0.9% 1,000 ML IV SCH (12:53)
[2017-09-27] MEDS ORDERED: SODIUM PHOSPHATE 118 ML ENEM RC PRN (13:20)
[2017-09-27] MEDS ORDERED: BISACODYL 10 MG SUPP RC PRN (13:20)
[2017-09-27] MEDS ORDERED: LACTOBACILLUS RHAMNOSUS GG 1 EACH CAP GT SCH (14:00)
--- NOTE | 2017-09-27 14:00 | NUR ---
PATIENT AWAKE, EYE OPEN SPONTANEOUSLY. RESPIRATION EVEN, UNLABOR ON 2L NC. NO DISTRESS NOTED AT THIS TIME. NEW IV WAS STARTED ON LEFT FOREARM, PATIENT TOLERATED WELL.
[2017-09-27 16:00] VITALS: BP 89/54
--- NOTE | 2017-09-27 16:00 | NUR ---
PATIENT IS SLEEPING COMFORTABLY. RESPIRATION EVEN, UNLABOR ON 2L NC. FLACC 0. VS IS STABLE. NO DISTRESS NOTED AT THIS TIME. COMPATIBILITY TEST ENGINEER IS AT BEDSIDE. BED ALARM IS ACTIVE
[2017-09-27] MEDS: METOCLOPRAMIDE 10 MG/10 ML SYRP UDC GT SCH (16:47)
[2017-09-27] MEDS ORDERED: METOCLOPRAMIDE 10 MG/2 ML INJ VIAL IVP SCH (17:00)
[2017-09-27 18:22] VITALS: BP 97/57
--- NOTE | 2017-09-27 18:23 | NUR ---
PATIENT IS SLEEPING COMFORTABLY. RESPIRATION EVEN, UNLABOR ON 2L NC. NO DISTRESS NOTED AT THIS TIME. IV PATENT AND INTACT
--- NOTE | 2017-09-27 19:19 | NUR ---
ENDORSEMENT GIVEN TO THE ASSISTANT PROFESSOR OF MUSIC NURSE. PATIENT IS STABLE AT THIS TIME
--- NOTE | 2017-09-27 19:20 | NUR ---
PATIENT REPORT RECEIVED FROM MORNING NURSE AT BEDSIDE. PATIENT IS NONVERBAL, BEDBOUND. NO SIGNS AND SYMPTOMS OF DISTRESS NOTED. PATIENT IS ON O2 2L NC. IV SITE NOTED ON RIGHT HAND AND LEFT FOREARM. IV FLUID RUNNING WELL. HEPARIN DRIP ON LEFT FOREARM RUNNING CURRENTLY AT 850 UNITS/HR. PLAN OF CARE DISCUSSED WITH PATIENT, PATIENT UNABLE TO COMPREHEND. BED IN LOWEST POSITION, SIDE RAILS UP AND CALL LIGHT WITHIN REACH. WILL CONTINUE TO MONITOR
[2017-09-27] MEDS: ALBUTEROL SULFATE/IPRATROPIU 3 ML SOL IH SCH (19:27)
[2017-09-27] MEDS: BUDESONIDE 0.5 MG/2 ML NEBU INH SCH (19:28)
[2017-09-27 20:00] VITALS: BP 100/62
[2017-09-27] MEDS: LORazepam 0.5 MG TAB GT SCH (20:14)
[2017-09-27] MEDS: METOPROLOL 25 MG TAB PO SCH (20:14)
[2017-09-27] MEDS ORDERED: ACETAZOLAMIDE 250 MG PO SCH (21:00)
[2017-09-27] MEDS: acetaZOLAMIDE 250 MG TAB GT SCH (21:00)
--- NOTE | 2017-09-27 21:00 | NUR ---
DR DORSEY SAID OK TO HOLD DIAMOX DUE TO LOWERED BP. BUT OK TO GIVE LOPRESSOR DUE TO PARAMETERS
--- NOTE | 2017-09-27 21:40 | NUR ---
PTT IS 65, PER HEPARIN PROTOCOL, NO CHANGE. HEPARIN DRIP TO KEEP RUNNING AT 850 UNITS/HR
--- NOTE | 2017-09-27 22:20 | NUR ---
PATIENT VOIDED IN BED. PADS CHANGED. PERICARE DONE. PATIENT REPOSITIONED FOR COMFORT. WILL CONTINUE TO MONITOR
[2017-09-28] VITALS: BP 109/69
--- NOTE | 2017-09-28 | NUR ---
PATIENT PULLED OUT IV SITE ON RIGHT HAND. WILL INSERT NEW IV
[2017-09-28] MEDS: NACL 0.9% 1,000 ML IV SCH ×2 (00:06→16:12)
--- NOTE | 2017-09-28 01:09 | NUR ---
NEW IV SITE INSERTED BY CHARGE NURSE GORDO. LEFT HAND 22 GAUGE. SEVERAL ATTEMPTS MADE. PATIENT TOLERATED WELL
--- NOTE | 2017-09-28 03:33 | NUR ---
CHECKED ON PATIENT. PATIENT IS ASLEEP. NO SIGNS AND SYMPTOMS OF DISTRESS NOTED. BREATHING EVEN AND UNLABORED. WILL CONTINUE TO MONITOR
--- NOTE | 2017-09-28 03:45 | NUR ---
PTT IS 68.6 PER HEPARIN PROTOCOL, NO CHANGE TO HEPARIN DRIP. WILL CONTINUE TO RUN AT 850 UNITS/HR.
[2017-09-28 04:00] VITALS: BP 111/61
--- NOTE | 2017-09-28 04:30 | NUR ---
PATIENT VOIDED IN BED. PERICARE DONE. CHUCKS CHANGED. PATIENT REPOSITIONED FOR COMFORT, SAFETY PRECAUTIONS IN PLACE. WILL CONTINUE TO MONITOR
--- NOTE | 2017-09-28 06:00 | NUR ---
PER DR. MARIE, SINCE TROPONIN HAS BEEN TRENDING DOWN. HEPARIN DRIP WILL BE DISCONTINUED
[2017-09-28] MEDS: METOCLOPRAMIDE 10 MG/10 ML SYRP UDC GT SCH ×3 (06:36→16:15)
[2017-09-28] MEDS: LEVOTHYROXINE 0.05 MG TAB GT SCH (06:36)
--- NOTE | 2017-09-28 07:10 | NUR ---
PATIENT REPORT GIVEN TO MORNING NURSE AT BEDSIDE FOR CONTINUITY OF CARE. PATIENT IS IN STABLE CONDITION.
--- NOTE | 2017-09-28 07:15 | NUR ---
RECEIVED PT FROM NIGHT NURSE VAIBHAV, PT IS AWAKE, WITH TWO MITTENS IN PLACED FOR BOTH HANDS TO PREVENT THE PT FROM PULLING THE IV SITES, PT HAS IV LINE ON THE LEFT HAND G. 22 WITH NS RUNNING AT 60ML/HR, INTACT AND ANOTHER IV SALINE LOCK ON THE LEFT FA G. 22., INTACT. SIDE RAILS ARE UP,PADDED, BED IN LOW POSITION AND CALL LIGHT WITHIN REACH, SEIZURE PRECAUTION ENFORCED. PT IS ON O2 VIA NC AT 2L AND PT TOLERATES IT, RESPIRATIONS EVEN. PT HAS A RT HEEL PRESSURE ULCER AND BOOTS ARE IN PLACED FOR BOTH FEELS FOR PROTECTION. NO SIGN OF DISTRESS NOTED ON THE PT. WILL CONTINUE TO MONITOR.
[2017-09-28] MEDS: ALBUTEROL SULFATE/IPRATROPIU 3 ML SOL IH SCH ×3 (07:20→19:24)
[2017-09-28] MEDS: BUDESONIDE 0.5 MG/2 ML NEBU INH SCH ×2 (07:30→19:24)
--- NOTE | 2017-09-28 07:55 | NUR ---
PT IS AWAKE AND WAS PUT ON A SEMI PRESTON'S POSITION TO PREVENT ASPIRATION OF MUCUS WHEN PT COUGHS. VITAL SIGNS TAKEN AND IS STABLE. PT'S G-TUBE IS INTACT AND IN PLACE AND SECURED WITH A BINDER. NO SIGN OF DISTRESS NOTED AND WILL CONTINUE TO MONITOR.
[2017-09-28 08:00] VITALS: BP 129/75
--- NOTE | 2017-09-28 08:36 | NUR ---
PATIENT HAS BEEN SCREENED AND CATEGORIZED HIGH NUTRITION RISK. PATIENT WILL BE SEEN WITHIN 1-2 DAYS OF ADMISSION. 09/28/[address]
[2017-09-28] MEDS: LORazepam 1 MG TAB GT SCH (08:54)
[2017-09-28] MEDS: LEVOFLOXACIN 750 MG/D5W PREMIX 150 ML IV SCH (08:54)
[2017-09-28] MEDS: OXYBUTYNIN 5 MG TAB GT SCH (08:55)
[2017-09-28] MEDS: ASPIRIN 81 MG TAB.CHEW PO SCH (08:55)
[2017-09-28] MEDS: LACTOBACILLUS RHAMNOSUS GG 1 EACH CAP PO SCH (08:56)
[2017-09-28] MEDS: LISINOPRIL 5 MG TAB PO SCH (08:56)
[2017-09-28] MEDS: CHOLECALCIFEROL 1,000 IU TAB GT SCH (08:57)
[2017-09-28] MEDS: ASCORBIC ACID 500 MG TAB GT SCH (08:57)
[2017-09-28] MEDS: METOPROLOL 25 MG TAB PO SCH ×2 (08:59→20:48)
[2017-09-28] MEDS ORDERED: NON-FORMULARY ITEM (Cholecalciferol (Vitamin D3) (Vitamin D3) 2,000 IU) GT SCH (09:00)
[2017-09-28] MEDS: acetaZOLAMIDE 250 MG TAB GT SCH ×2 (09:12→20:48)
--- NOTE | 2017-09-28 11:01 | NUR ---
PT IS AWAKE WITH CAREGIVER ON THE BEDSIDE, PT'S PERIPHERAL LINE WAS CHECKED, INTACT AND INFUSING WELL. NO SIGN OF DISTRESS NOTED ON THE PT. WILL CONTINUE TO MONITOR.
--- NOTE | 2017-09-28 11:27 | NUR ---
PT IS AWAKE WITH CAREGIVER ON THE BEDSIDE, MEDICATION GIVEN VIA G-TUBE AND PT TOLERATED IT, 20ML RESIDUAL NOTED. DR. UMANA CAME AND SAW THE PT. VITAL SIGNS TAKEN AND IS STABLE. NO SIGN OF DISTRESS NOTED AND WILL CONTINUE TO MONITOR.
[2017-09-28 12:00] VITALS: BP 129/73
--- NOTE | 2017-09-28 12:32 | NUR ---
RECEIVED A FEEDING RECOMMENDATION FROM KATIA DYER FOR THE PT. WILL INFORM THE MD.
--- NOTE | 2017-09-28 12:33 | NUR ---
PT IS AWAKE AND LYING ON THE BED, CAREGIVER IS ON THE BEDSIDE. NO SIGN OF DISTRESS NOTED ON THE PT. WILL CONTINUE TO MONITOR.
--- NOTE | 2017-09-28 13:06 | NUR ---
REPOSITIONED PT TO HIS LEFT LATERAL SIDE, CLEANED AND MADE COMFORTABLE. WOUND ASSESSMENT DONE ON THE RT HEEL, IRLANDA. OPTIFOAM APPLIED TO RT KNEE FOR PROTECTION FOR THE SMALL ABRASION NOTED. NO SIGN OF DISTRESS NOTED AND WILL CONTINUE TO MONITOR. PT'S CAREGIVER ON THE BEDSIDE.
--- NOTE | 2017-09-28 13:17 | NUR ---
RELAYED AND HANDED ON TO DR. MELENDEZ ABOUT THE RECOMMENDATION FROM [facility] FOR A FEEDING TO THE PT. DR. MELENDEZ SAID THAT HE WILL JUST INFORM DR. WALTER ABOUT THE FEEDING RECOMMENDATION.
--- NOTE | 2017-09-28 14:18 | NUR ---
09/28/17 RD INITIAL ASSESSMENT COMPLETED PLEASE REFER TO NUTRITION ASSESSMENT UNDER CARE ACTIVITY FOR ESTIMATED NUTRITIONAL NEEDS. 1. RECOMMEND JEVITY 1.2 AT 55 ML/HR, STARTING AT 20 ML/HR, INCREASE BY 20 ML/HR Q6H. WATER FLUSH 100 ML Q4H -THIS WILL PROVIDE 1320 ML, 1584 KCAL, 73 GM PROTEIN WHICH MEETS 100% OF ESTIMATED NEEDS 2. RD TO FOLLOW-UP 2-3 DAYS, HIGH RISK KATIA ROBLES, RD
--- NOTE | 2017-09-28 15:24 | NUR ---
ACKNOWLEDGED A TUBE FEEDING ORDER FOR THE PT. WILL FACILITATE.
[2017-09-28 16:00] VITALS: BP 127/64
--- NOTE | 2017-09-28 16:20 | NUR ---
PT IS AWAKE AND VITAL SIGNS TAKEN AND IS STABLE. MEDICATION GIVEN VIA G-TUBE. NO SIGN OF DISTRESS NOTED AND WILL CONTINUE TO MONITOR.
--- NOTE | 2017-09-28 18:30 | NUR ---
STARTED PT ON CONTINUOUS TUBE FEEDING VIA A FEEDING PUMP WITH 20ML/HR TO INCREASE BY 20ML Q6H WITH A WATER FLUSH OF A 100ML Q4H. PT TOLERATED IT AND NO SIGN OF DISTRESS NOTED. WILL ENDORSE TO RUBBER STAMP DIES INSPECTOR NURSE TO CHECK FOR RESIDUAL.
--- NOTE | 2017-09-28 19:20 | NUR ---
ENDORSED PT TO DELIVERY COORDINATOR NURSE, VAIBHAV, FOR CONTINUITY OF CARE. PT IS STABLE AT THIS TIME.
--- NOTE | 2017-09-28 19:21 | NUR ---
PATIENT REPORT RECEIVED FROM MORNING NURSE AT BEDSIDE. PATIENT IS NONVERBAL, BEDBOUND. NO SIGNS AND SYMPTOMS OF DISTRESS NOTED. PATIENT IS ON O2 2L NC. BREATHING EVEN AND UNLABORED. IV SITE NOTED ON LEFT HAND AND LEFT FOREARM. LEFT FOREARM IV ASYMPTOMATIC AND INTACT. LEFT HAND IV INFILTRATED WITH FLUIDS LEAKING. IV SITE DISCONTINUED. IV CANNULA INTACT. PLAN OF CARE DISCUSSED WITH PATIENT, PATIENT UNABLE TO COMPREHEND. BED IN LOWEST POSITION, SIDE RAILS UP AND CALL LIGHT WITHIN REACH. WILL CONTINUE TO MONITOR
[2017-09-28 20:00] VITALS: BP 130/61
[2017-09-28] MEDS: LORazepam 0.5 MG TAB GT SCH (20:49)
[2017-09-28] MEDS: SIMVASTATIN 20 MG TAB PO SCH (20:49)
--- NOTE | 2017-09-28 21:30 | NUR ---
GTUBE RESIDUAL CHECKED. NO RESIDUAL NOTED. MEDICATION EDUCATION GIVEN. MEDICATION ADMINISTERED ORDERED. PATIENT TOLERATED WELL. WILL CONTINUE TO MONITOR
--- NOTE | 2017-09-28 22:00 | NUR ---
PATIENT VOIDED IN BED. PERICARE DONE. CHUCKS AND GOWN CHANGED. PATIENT REPOSITIONED FOR COMFORT. WILL CONTINUE TO MONITOR
[2017-09-29] VITALS: BP 114/64
--- NOTE | 2017-09-29 00:30 | NUR ---
GTUBE RESIDUAL CHECKED. NO RESIDUAL NOTED. TUBE FEEDING INCREASED TO 40ML/HR. WILL CONTINUE TO MONITOR
--- NOTE | 2017-09-29 02:44 | NUR ---
PATIENT RESTING COMFORTABLY IN BED. NO S/SX OF DISTRESS NOTED. BREATHING EVEN AND UNLABORED. PATIENT REPOSITIONED FOR COMFORT. WILL CONTINUE TO MONITOR
[2017-09-29 04:00] VITALS: BP 138/65
[2017-09-29] MEDS: NACL 0.9% 1,000 ML IV SCH ×2 (04:06→17:12)
--- NOTE | 2017-09-29 04:28 | NUR ---
PATIENT VOIDED IN BED. PERICARE DONE. CHUCKS CHANGED. PATIENT REPOSITIONED FOR COMFORT. PATIENT TOLERATED WELL. WILL CONTINUE TO MONITOR
[2017-09-29 06:25] LABS: BASOPHILS % (AUTO) 0.2 % (0.0-2.0); EOSINOPHILS % (AUTO) 0.5 % (0.0-4.0); HEMATOCRIT 38.1 % (36-52); HEMOGLOBIN 12.7 g/dL (12.0-18.0); LYMPHOCYTES # (AUTO) 1.3 K/uL (2.0-11.5); LYMPHOCYTES % (AUTO) 20.3 % (20.5-51.1); MEAN CORPUSCULAR HEMOGLOBIN 28 pg (27-31); MEAN CORPUSCULAR HGB CONC 33 g/dL (33-37); MEAN CORPUSCULAR VOLUME 82.8 fL (80-94); MONOCYTES # (AUTO) 0.5 K/uL (0.8-1.0); MONOCYTES % (AUTO) 7.6 % (1.7-9.3); NEUTROPHILS # (AUTO) 4.4 K/uL (1.8-7.7); NEUTROPHILS % (AUTO) 71.4 % (42.2-75.2); PLATELET COUNT (AUTO) 214 K/uL (140-450); RED BLOOD CELL COUNT(AUTO) 4.61 MIL/uL (4.20-6.10); RED CELL DISTRIBUTION WIDTH 13.2 % (11.6-13.7); WHITE BLOOD COUNT (AUTO) 6.2 K/uL (4.8-10.8)
[2017-09-29] MEDS: LEVOTHYROXINE 0.05 MG TAB GT SCH (06:29)
[2017-09-29] MEDS: METOCLOPRAMIDE 10 MG/10 ML SYRP UDC GT SCH ×3 (06:30→16:30)
--- NOTE | 2017-09-29 06:41 | NUR ---
G-TUBE RESIDUAL CHECKED. NO RESIDUAL NOTED. TUBE FEEDING INCREASED TO 55ML/HR. WILL CONTINUE TO MONITOR
[2017-09-29 06:49] LABS: ANION GAP 14.1 (8-16); CARBON DIOXIDE 22.6 mmol/L (21-32); CREATININE 0.8 mg/dL (0.7-1.3); POTASSIUM 3.7 mmol/L (3.5-5.1)
[2017-09-29 06:53] LABS: MAGNESIUM 1.7 mg/dL (1.8-2.4); PHOSPHORUS 2.7 mg/dL (2.5-4.9)
--- NOTE | 2017-09-29 07:21 | NUR ---
PATIENT REPORT GIVEN TO MORNING NURSE AT BEDSIDE FOR CONTINUITY OF CARE. PATIENT IS IN STABLE CONDITION
--- NOTE | 2017-09-29 07:22 | NUR ---
RECEIVED REPORT FROM NIGHT RN AT PT BEDSIDE. PATIENT IS AWAKE, APHASIC. NO ACUTE DISTRESS NOTED. PATIENT HAS RIGIDITY IN RUE, BLE. PATIENT HAS G-TUBE IN PLACE TO FEEDING, TOLERATING WELL, MINIMAL RESIDUAL NOTED. PATIENT ON 2L NC. HEELS OFFLOADED WITH BOOTS AND PILLOWS. INCONTINENT. LINENS CHANGED, SKIN KEPT CLEAN AND DRY.
[2017-09-29 08:00] VITALS: BP 124/88
[2017-09-29] MEDS: BUDESONIDE 0.5 MG/2 ML NEBU INH SCH ×2 (08:06→19:06)
[2017-09-29] MEDS: ALBUTEROL SULFATE/IPRATROPIU 3 ML SOL IH SCH ×3 (08:06→19:06)
[2017-09-29] MEDS: OXYBUTYNIN 5 MG TAB GT SCH (08:58)
[2017-09-29] MEDS: LORazepam 1 MG TAB GT SCH (08:58)
[2017-09-29] MEDS: LEVOFLOXACIN 750 MG/D5W PREMIX 150 ML IV SCH (08:58)
[2017-09-29] MEDS: LISINOPRIL 5 MG TAB PO SCH (08:58)
[2017-09-29] MEDS: CHOLECALCIFEROL 1,000 IU TAB GT SCH (08:59)
[2017-09-29] MEDS: ASCORBIC ACID 500 MG TAB GT SCH (08:59)
[2017-09-29] MEDS: ASPIRIN 81 MG TAB.CHEW PO SCH (08:59)
[2017-09-29] MEDS: LACTOBACILLUS RHAMNOSUS GG 1 EACH CAP PO SCH (09:00)
[2017-09-29] MEDS: METOPROLOL 25 MG TAB PO SCH ×2 (09:00→20:48)
--- NOTE | 2017-09-29 10:14 | NUR ---
WOUND CARE EVALUATION NOTES: REASON FOR EVALUATION: RIGHT ABOVE HEEL (ACHILLES AREA) PRESSURE INJURY SKIN ASSESSMENT DONE ON THIS 57 Y/O MALE PATIENT FROM ADMITTED TO [facility], WITH INITIAL DIAGNOSIS OF SOBX1 DAY. PAST MEDICAL HISTORY INCLUDE ASTHMA, HYPOTHYROIDISM, INTELLECTUAL DISABILITY, CPAP AT NIGHT. ALL ABOVE INFORMATION WAS OBTAINED FROM THE ADMISSION H&P. LABS ARE WBC 6.2, H/H 12.7/38.1, GLUCOSE 111, AND ALBUMIN 3.4. PATIENT IS AWAKE WHEN TOUCHED. SKIN WARM TO TOUCH, THICKENED TOENAILS, NO EDEMA, NO HAIR GROWTH AND BILATERAL PEDAL PULSES PRESENT. CONTRACTURE TO LOWER EXTREMITIES. INCONTINENT OF BOWEL AND BLADDER. PLAN OF CARE AND PRESSURE PREVENTIVE MEASURES DISCUSSED WITH PT AND PRIMARY NURSE. INTEGUMENTARY: -GT ELIZABETH-STOMA SKIN DRY, CLEAN AND INTACT. -INCONTINENT ASSOCIATE DERMATITIS TO SCROTUM AND PERINEUM REDNESS, SKIN INTACT -RIGHT ABOVE HEEL (ACHILLES AREA) PRESSURE INJURY STAGE 2, 1X1.2X0.1, WOUND BED IS RED, MOIST, NO ODOR, ELIZABETH-WOUND SKIN INTACT, REDNESS WITH THIN FRAGILE SKIN RECOMMENDATIONS: -CLEANSE RIGHT ABOVE HEEL (ACHILLES AREA) PRESSURE INJURY STAGE 2 WITH NS. PAT DRY, APPLY HYDROGEL AND COVER WITH OPTIFORM QD AND PRN IF SOILING. -APPLY HYDRAGUARD TO SCROTUM AND PERINEUM BIDWC AND PRN IF SOILING -TURN AND REPOSITION PATIENT Q2H -ASSESS AND MONITOR SKIN CONDITION DURING POSITION CHANGE, PLEASE PAY ATTENTION TO RIGHT HEEL -OFFLOAD BILATERAL HEELS BY PLACING PILLOWS UNDER CALVES AT ALL TIMES, UNLESS OTHERWISE CONTRAINDICATED -HEEL RAISERS TO RIGHT HEEL AT ALL TIMES -PRESSURE REDISTRIBUTION SURFACE THERAPY -KEEP SKIN CLEAN AND DRY AT ALL TIMES. RECOMMENDATIONS DISCUSSED WITH PRIMARY RN AND DR. URBINA WILL FOLLOW UP PATIENT Q 7 -10 DAYS AND PRN. PLEASE CONTACT WOUND CARE NURSE FOR ANY QUESTION OR CHANGES IN WOUND CONDITION
--- NOTE | 2017-09-29 10:30 | NUR ---
Legal Nurse Consultant Notes: I Attempted to call Patient's [facility] [facility] Sailboat Captain Shilpa Marquez at [phone] to discuss, confirm and gather additional information for patient. Mrs. Marquez was not available I left her a voice Mail Message requesting a call back as soon as possible.
--- NOTE | 2017-09-29 11:00 | NUR ---
Circular Gang Saw Operator Notes: I attempted to contact facility caregiver/Staff Marline at [phone] to discuss, confirm and gather additional Patient's Information. Staff was not responding I left her a voice mail MSG and request for a call back as soon as possible.
[2017-09-29] MEDS: acetaZOLAMIDE 250 MG TAB GT SCH ×2 (11:17→21:04)
[2017-09-29 12:00] VITALS: BP 117/64
--- NOTE | 2017-09-29 12:00 | NUR ---
PATIENT SEEN BY WOUND CARE NURSE, NEW ORDERS RECEIVED. PATIENT ASSISTED IN CHANGING OF POSITIONS. SKIN KEPT CLEAN AND DRY. OFFLOADED PRESSURE AREAS.
--- NOTE | 2017-09-29 13:00 | NUR ---
Mortgage Closing Clerk Notes: Late entry I received a call for Shilpa Marquez to discuss, confirm, and gather more patient's information. According to Mrs. Marquez Patient is receiving [facility] and his rehabilitation caseworker is Lyn Dejesus , who has been under patient's care for about 5 years now. Per Camelia Jimmy Patient is not conserved and has no family involvement. Patient medical needs are up to MD recommendation and discretion in a case of emergency or urgent need. Per Shilpa Patient has been in their facility for about 4-5 years and has no issues with medications. Patient has a customized wheelchair due to his needs, Patient has a C-pap machine in the facility and is welcome to return to same facility at [facility] when he is clear and ready for discharge. Per Mrs. Marquez as the administrator health care facility she is the one that coordinates and schedules patient's lemon picker by her facility staff at discharge. I thanked Mrs. Marquez for her information, and agreed to call her to set up patient's discharge when ready.
[2017-09-29] MEDS ORDERED: NACL 0.9% IRR 250 ML BOTTLE IR PRN (13:20)
[2017-09-29] MEDS ORDERED: SKINTEGRITY HYDROGEL TP PRN (13:20)
[2017-09-29] MEDS ORDERED: HYDRAGUARD CREAM TP PRN (13:20)
[2017-09-29] MEDS ORDERED: HYDRAGUARD CREAM TP SCH (13:25)
[2017-09-29] MEDS ORDERED: NACL 0.9% IRR 250 ML BOTTLE IR SCH (13:26)
[2017-09-29] MEDS ORDERED: SKINTEGRITY HYDROGEL TP SCH (13:28)
--- NOTE | 2017-09-29 13:51 | NUR ---
PT IS ASLEEP HHN NOT GIVEN NO APPARENT SOB
--- NOTE | 2017-09-29 15:45 | NUR ---
Social Workers Notes: I attempted to contact Patient's [employer] panel lay up worker Lyn Dejesus at . No response; I left her my contact information a voice MSG with a request for a call back as soon as possible
[2017-09-29 16:00] VITALS: BP 108/58
--- NOTE | 2017-09-29 16:00 | NUR ---
PATIENT ASSISTED IN CHANGING OF POSITIONS Q2H DURING SHIFT. SKIN KEPT CLEAN AND DRY. OFFLOADED PRESSURE AREAS.
--- NOTE | 2017-09-29 19:20 | NUR ---
SBAR REPORT GIVEN TO NIGHT RN AT PT BEDSIDE. PATIENT RESTING IN BED, NO S/S OF ACUTE DISTRESS NOTED.
--- NOTE | 2017-09-29 19:21 | NUR ---
RECEIVED REPORT AT PT BEDSIDE FROM DAY SHIFT RN, PT APHASIC, ON 2L VIA NASAL CANNULA AT THE MOMENT. PT UNABLE TO MAKE NEEDS KNOWN, UNABLE TO FOLLOW COMMANDS. RESPIRATIONS EVEN AND UNLABORED. PT HAS RIGHT HEEL PRESSURE ULCER. UPDATED BOARD. VITAL SIGNS WITHIN NORMAL LIMITS. PT STABLE, NO SIGNS OF DISTRESS NOTED AT THIS TIME. BED IN LOWEST POSITION, BED ALARM ON. CALL LIGHT WITHIN REACH, WILL CONTINUE TO MONITOR.
[2017-09-29 20:00] VITALS: BP 104/55
[2017-09-29] MEDS: LORazepam 0.5 MG TAB GT SCH (20:48)
[2017-09-29] MEDS: SIMVASTATIN 20 MG TAB PO SCH (20:48)
--- NOTE | 2017-09-29 21:05 | NUR ---
NO RESIDUAL ASPIRATED. ADMINISTERED SCHEDULED MEDICATIONS, PT TOLERATED WELL. FLUSHED WITH 30ML WATER. PT STABLE, NO SIGNS OF DISTRESS NOTED AT THIS TIME. BED IN LOWEST POSITION, BED ALARM ON. CALL LIGHT WITHIN REACH, WILL CONTINUE TO MONITOR.
[2017-09-30] VITALS: BP 127/69
--- NOTE | 2017-09-30 | NUR ---
VITAL SIGNS WITHIN NORMAL LIMITS. PT STABLE, NO SIGNS OF DISTRESS NOTED AT THIS TIME. BED IN LOWEST POSITION, BED ALARM ON. CALL LIGHT WITHIN REACH, WILL CONTINUE TO MONITOR.
[2017-09-30] MEDS ORDERED: HYDRAGUARD CREAM TP SCH (01:00)
[2017-09-30 04:00] VITALS: BP 127/64
[2017-09-30] MEDS: NACL 0.9% 1,000 ML IV SCH (06:15)
[2017-09-30] MEDS: LEVOTHYROXINE 0.05 MG TAB GT SCH (06:18)
[2017-09-30] MEDS: METOCLOPRAMIDE 10 MG/10 ML SYRP UDC GT SCH ×2 (06:41→12:35)
--- NOTE | 2017-09-30 07:17 | NUR ---
ENDORSED PT TO DAY SHIFT RN FOR CONTINUITY OF CARE. PT IN STABLE CONDITION.
--- NOTE | 2017-09-30 07:18 | NUR ---
RECEIVED PT FROM PM NURSE FOR CONTINUITY OF CARE AT BEDSIDE. PT SLEEPING. APHASIC, PT IS ALERT AND AWAKE TO THE TACTILE STIMULUS. IV SITE LFT WRIST. 22G, NS INFUSING AT 80 ML/HR. PT ON G-TUBE FEEDING. FEEDING RUNNING AT 55 ML /HR, FLUSHING AT 100 ML/HR EVERY 4 HR. PT HAS NO SIGN OF DISTRESS. ALL SAFETY MEASURE IN PLACE. WILL CONTINUE TO MONITOR PT.
[2017-09-30 07:54] VITALS: BP 143/78
[2017-09-30] MEDS: BUDESONIDE 0.5 MG/2 ML NEBU INH SCH (08:04)
[2017-09-30] MEDS: ALBUTEROL SULFATE/IPRATROPIU 3 ML SOL IH SCH (08:04)
[2017-09-30] MEDS ORDERED: SKINTEGRITY HYDROGEL TP SCH (09:00)
[2017-09-30] MEDS ORDERED: NACL 0.9% IRR 250 ML BOTTLE IR SCH (09:00)
[2017-09-30] MEDS: LORazepam 1 MG TAB GT SCH (09:04)
[2017-09-30] MEDS: LISINOPRIL 5 MG TAB PO SCH (09:04)
[2017-09-30] MEDS: ASCORBIC ACID 500 MG TAB GT SCH (09:04)
[2017-09-30] MEDS: ASPIRIN 81 MG TAB.CHEW PO SCH (09:05)
[2017-09-30] MEDS: METOPROLOL 25 MG TAB PO SCH (09:05)
[2017-09-30] MEDS: CHOLECALCIFEROL 1,000 IU TAB GT SCH (09:14)
[2017-09-30] MEDS: OXYBUTYNIN 5 MG TAB GT SCH (09:14)
[2017-09-30] MEDS: LACTOBACILLUS RHAMNOSUS GG 1 EACH CAP PO SCH (09:14)
[2017-09-30] MEDS: LEVOFLOXACIN 750 MG/D5W PREMIX 150 ML IV SCH (09:15)
[2017-09-30] MEDS: acetaZOLAMIDE 250 MG TAB GT SCH (09:23)
--- NOTE | 2017-09-30 09:30 | NUR ---
ADMINISTERED MEDS ORDERED . PT WAS SLEEPING . AWAKE TO TACTILE STIMULUS. MEDS WERE GIVEN VIA G-TUBE. PT TOLERATED WELL. G-TUBE INTACT AND PATENT, NO CLOGGING.ALL SAFETY MEASURES IN PLACE. WILL CONTINUE TO MONITOR PT.
--- NOTE | 2017-09-30 10:15 | NUR ---
DID DRESSING CHANGE ON THE PT. NO DRAINAGE NOTED. WOUND IS HEALING. WOUND BED IS PINK IN COLOR. PICTURE TAKEN. PUT THE HYDROGEL AND APPLIED ADHESIVE OCTA FOAM ON THE HEEL OF THE PT. PT TOLERATED WELL. NO SIGN OF THE DISTRESS NOTED .WOOD MOLDER AT THE BEDSIDE FOR HELPING TO LIFT THE PT FOOT . ALL SAFETY MEASURE IN PLACE. WILL CONTINUE TO MONITOR PT.
--- NOTE | 2017-09-30 10:30 | NUR ---
Wiring Inspector Notes: I call Shilpa Garcia at to inform her that Patient will be discharge today and to coordinate with her staff patient's shrimp picker time for patient from [facility]. Per Mrs. Marquez she will be contacting and setting up time for patient to be shrimp picker by her staff and will call back these proposal manager writer with time
--- NOTE | 2017-09-30 11:45 | NUR ---
CHECKED ON PT. PT SLEEPING WELL. BS 105. CHECKED THE BP. BP 83/46. DR WALTER NOTIFIED. WILL ORDER THE BOLUS 0.9 NS TO BRING THE BPM NORMAL. WAITING FOR THE ORDER .
[2017-09-30 12:00] VITALS: BP 83/46
[2017-09-30] MEDS ORDERED: NACL 0.9% 500 ML IV SCH ×2 (12:20→12:50)
--- NOTE | 2017-09-30 12:45 | NUR ---
Engineering Research Manager Notes: I recieved a voice mail MGS from Shilpa Marquez Patient's healthcare advisory services manager , stating that she has arrange with her facility staff for Patient to be sisal picker at about 1:30pm - 2:00pm and transport him back to facility today after his discharge.
--- NOTE | 2017-09-30 13:45 | NUR ---
PATIENT IN DISCHARGING PROCESS NO SOB NOTED HHN THERAPY NOT GIVEN
--- NOTE | 2017-09-30 14:05 | NUR ---
PT LEFT THE HOSPITAL WITH THE FACILITY STAFF. PT TOOK ALL HIS BELONGING WITH HIM. ASSISTED PT TO TRANSFER TO THE WHEEL CHAIR BY ESMER PEREZ. SENSITOMETRIST AND THE FACILITY AT THE BEDSIDE. NO SIGN OF DISTRESS. G-TUBE UIS INTACT. GAVE REPORT TO THE FACILITY NURSE FAITH OVER THE PHONE. GAVE THE CALL BACK NUMBER IF HAS ANY QUESTION . VERBALIZED THE UNDERSTANDING OF THE TEACHING. CHARGE NURSE NOTIFIED.
--- NOTE | 2017-09-30 15:24 | NUR ---
Social Workers Notes: I attempted to contact Patient's [facility] weigh and charge worker Lyn Dejesus at . No response; I left her my contact information a voice MSG with a request for a call back as soon as possible.
[2017-09-30] MEDS ORDERED: LISINOPRIL 5 MG TAB PO SCH (21:00)
[2017-09-30] MEDS ORDERED: METOPROLOL 25 MG TAB PO SCH (21:00)
== END 2017-09-30 14:05 | DRG 871 ==
LOC: MED 08:24 → MTU 11:31
PROVIDERS: ADMIT General Practice; ATTEND General Practice
DX: A41.9 Sepsis, unspecified organism (principal); J96.01 Acute respiratory failure with hypoxia; I21.A1 Myocardial infarction type 2; G82.50 Quadriplegia, unspecified; N39.0 Urinary tract infection, site not specified; I42.9 Cardiomyopathy, unspecified; E03.9 Hypothyroidism, unspecified; G47.33 Obstructive sleep apnea (adult) (pediatric); Z88.0 Allergy status to penicillin; Z88.6 Allergy status to analgesic agent; Z91.012 Allergy to eggs; J45.909 Unspecified asthma, uncomplicated; L89.611 Pressure ulcer of right heel, stage 1; R33.9 Retention of urine, unspecified; I11.9 Hypertensive heart disease without heart failure; F79 Unspecified intellectual disabilities
CPT/HCPCS: 36415; 36600; 71045; 80048; 80053; 81001; 82803; 82948; 83036; 83605; 83690; 83735; 83880; 84100; 84134; 84443; 84484; 85025; 85610; 85730; 87040; 87081; 87086; 93005; 94640; 96374; 99285; A6248; J1644; J1956; J7030; J7620; J7626; J8597; Q0092

== ENCOUNTER 2018-01-06 07:56 | Inpatient (IN) | payer OTHER, MEDICAID ==
[~2018-01-06] VITALS: Ht 162.6 cm; Wt 63.0 kg
[~2018-01-06 07:56] MED LIST changes: -LEVO750T2 GT; +PRON INH
--- NOTE | 2018-01-06 07:56 | NUR ---
PATIENT BIBA TO BED 7 AT THIS TIME.
[2018-01-06 08:00] VITALS: BP 121/63
--- NOTE | 2018-01-06 08:00 | NUR ---
57m deng from [facility] ([facility]). Per rehabilitation physician, staff found pt breathing heavy foaming at the mouth and hot to touch. Possible seizure ativity. No oral trauma noted. RR are midly labored and tachypneic. Pulse ox=96% on ra. Pt is alert and awake. Spontaneous eye movement. Withdraws from pain. Non verbal. GT in place. Dressing dry/clean/intact. Abd soft and round. Skin is hot/dry/pale. Patient changed into gown and to cardiac, bp, pulse, and pulse ox monitoring. Patient is sinus tachycardiac on cm. er md jones aware of patient's status. nad at this time. Will continue to monitor.
[2018-01-06] MEDS ORDERED: NACL 0.9% 1,000 ML IV SCH (08:04)
[2018-01-06] MEDS ORDERED: LEVOFLOXACIN 750 MG/D5W PREMIX 150 ML IV ONE (08:05)
[2018-01-06] MEDS ORDERED: ACETAMINOPHEN 650 MG SUPP RC ONE ×2 (08:05→08:13)
--- NOTE | 2018-01-06 08:45 | NUR ---
# 16 FR Alvarado catheter inserted utilizing sterile technique. Immediate return of 30ml of yellow cloudy urine noted. Bedside drainage bag placed below level of bladder. Urine sample collected and sent to lab. Pt tolerated procedure well.
[2018-01-06 08:53] LABS: BASOPHILS % (AUTO) 0.4 % (0.0-2.0); EOSINOPHILS % (AUTO) 0.1 % (0.0-4.0); HEMATOCRIT 37.7 % (36-52); HEMOGLOBIN 12.1 g/dL (12.0-18.0); LYMPHOCYTES # (AUTO) 1.1 K/uL (2.0-11.5); LYMPHOCYTES % (AUTO) 9.7 % (20.5-51.1); MEAN CORPUSCULAR HEMOGLOBIN 27 pg (27-31); MEAN CORPUSCULAR HGB CONC 32 g/dL (33-37); MEAN CORPUSCULAR VOLUME 83.9 fL (80-94); MONOCYTES # (AUTO) 1.5 K/uL (0.8-1.0); MONOCYTES % (AUTO) 13.3 % (1.7-9.3); NEUTROPHILS # (AUTO) 8.5 K/uL (1.8-7.7); NEUTROPHILS % (AUTO) 76.5 % (42.2-75.2); PLATELET COUNT (AUTO) 245 K/uL (140-450); RED CELL DISTRIBUTION WIDTH 13.3 % (11.6-13.7); WHITE BLOOD COUNT (AUTO) 11.1 K/uL (4.8-10.8)
[2018-01-06 09:03] LABS: PROTHROMBIN TIME 10.4 secs (10.8-13.4)
[2018-01-06 09:06] LABS: ANION GAP 11.5 (8-16); CARBON DIOXIDE 24.6 mmol/L (21-32); CREATININE 0.7 mg/dL (0.7-1.3); POTASSIUM 4.1 mmol/L (3.5-5.1)
[2018-01-06 09:12] LABS: ALBUMIN 3.1 g/dL (3.4-5.0); TOTAL BILIRUBIN 0.3 mg/dL (0.0-1.0)
--- NOTE | 2018-01-06 09:24 | NUR ---
caregiver, dena, by bedside
[2018-01-06 09:51] LABS: APPEARANCE,URINE HAZY (CLEAR); BILIRUBIN,URINE NEGATIVE (NEGATIVE); BLOOD, URINE NEGATIVE (NEGATIVE); COLOR,URINE YELLOW (YELLOW); LEUKOCYTE ESTERASE ,URINE NEGATIVE (NEGATIVE); NITRITE, URINE NEGATIVE (NEGATIVE); UGLUCOSE NEGATIVE (NEGATIVE)
[2018-01-06] MEDS ORDERED: ONDANSETRON 4 MG/2 ML VIAL IM/IVP PRN (09:55)
[2018-01-06] MEDS ORDERED: DOCUSATE SODIUM 100 MG GELCAP PO PRN (09:55)
[2018-01-06] MEDS ORDERED: ACETAMINOPHEN 325 MG TAB PO PRN (09:55)
--- NOTE | 2018-01-06 11:13 | NUR ---
ivf infusing without difficultly. nad. vss. awaiting admission bed. will follow up.
--- NOTE | 2018-01-06 11:43 | NUR ---
Patient will be admitted to care of [facility]. Admited to TEle. Will go to room 123-b. Belongings list completed. Bedside report to Beverly PEREZ.
[2018-01-06 11:50] VITALS: BP 124/77
--- NOTE | 2018-01-06 11:50 | NUR ---
RECEIVED REPORT FROM ED RN AT BEDSIDE. PT ON CONTACT PRECAUTIONS FOR HX MRSA AND DISPUTE COORDINATOR OF URINE. SEIZURE PRECAUTIONS FOR HX: SEIZURES. IV SITE PATENT AND ASYMPTOMATIC, FINISHING NS BOLUS FROM ED. ALLERGY WRISTBAND APPLIED. FALL RISK PROTOCOL IN PLACE. PT SATURATING AT 95% ON 2L NC. PT HAS SHALLOW BREATHING. RR IS 25 AT THIS TIME. INTERMITTENT WHEEZING AUSCULTATED OVER RIGHT LUNG. OTHERWISE CTA. G-TUBE IN PLACE. GILL CATH IN PLACE, DRAINING URINE. PT IS CONTRACTED IN ALL EXTREMITIES AT BASELINE. AN ULCER NOTED ABOVE UPPER LIP. PATIENT RE-POSITIONED FOR COMFORT. FLACC 0. PT RESTING QUIETLY IN BED. NO RESTLESSNESS NOTED. BOARD UPDATED. ALL SAFETY MEASURES IN PLACE, WILL CONTINUE TO MONITOR.
[2018-01-06 12:08] LABS: PROTHROMBIN TIME 11.5 secs (10.8-13.4)
[2018-01-06 12:19] LABS: CHOL/HDL RATIO 2.3 (1-4.5); PHOSPHORUS 3.8 mg/dL (2.5-4.9); THYROID STIMULATING HORMONE 0.56 uIU/mL (0.34-3.74)
--- NOTE | 2018-01-06 13:00 | NUR ---
REAL TIME START OF NS IVF AT 60 ML/HOUR. IVF SCANNED BUT NOT SUCCESSFULLY SAVED TO EMAR.
[2018-01-06 13:42] LABS: BARBITURATE, URINE NEG. ng/ml (NEG <=200); BENZODIAZEPINE, URINE NEG. ng/mL (NEG <=200); CANNABINOID, URINE NEG. ng/mL (NEG <=50); COCAINE, URINE NEG. ng/mL (NEG <=300); OPIATE, URINE NEG. ng/mL (NEG <=2000); PHENCYCLIDINE SCREEN,URINE NEG. ng/mL (NEG <=25)
--- NOTE | 2018-01-06 13:56 | NUR ---
RECHECKED TEMPERATURE VIA TEMPORAL ARTERY SCAN. TEMP IS NOW 98.5 F. WILL CONTINUE TO MONITOR.
--- NOTE | 2018-01-06 14:02 | NUR ---
DR. LAL TO PUT IN ORDERS FOR MEDS. DR. LAL AWARE THAT PATIENT HAS G-TUBE.
--- NOTE | 2018-01-06 14:10 | NUR ---
RECEIVED ORDER FOR FEEDING FEEDING. CALLED [employer] TO BRING FEEDING PUMP AND SCD. WILL START TUBE FEEDINGS WHEN FEEDING BROUGHT TO THE UNIT.
--- NOTE | 2018-01-06 14:12 | NUR ---
BREATHING TX HAS BEEN ADDED TO PLAN OF CARE.
[2018-01-06] MEDS ORDERED: ALBUTEROL SULFATE/IPRATROPIU 3 ML SOL IH PRN (14:15)
--- NOTE | 2018-01-06 14:32 | NUR ---
CALLED [facility] TO BRING TUBE FEEDING FORMULA. THEY ARE AWARE.
[2018-01-06] MEDS ORDERED: ACETAMINOPHEN 650 MG SUPP RC PRN (15:10)
--- NOTE | 2018-01-06 15:20 | NUR ---
STARTED TUBE FEEDING JEVITY 1.2 AT STARTING RATE OF 20 ML/HOUR.
[2018-01-06 16:00] VITALS: BP 105/65
--- NOTE | 2018-01-06 16:15 | NUR ---
PATIENT SLEEPING IN BED WITH LIGHT SNORING, NO ACUTE DISTRESS NOTED. RR IS 24. TEMP IS 98.3 F AT THIS TIME. WILL CONTINUE TO MONITOR.
[2018-01-06] MEDS: NACL 0.9% 1,000 ML IV SCH (16:17)
[2018-01-06] MEDS: METOCLOPRAMIDE 10 MG/10 ML SYRP UDC GT SCH (16:19)
--- NOTE | 2018-01-06 16:26 | NUR ---
PER POT SANDER, THERE IS SOME MILK COMPONENTS IN JEVITY 1.2 FEEDING AND PER PT MEDICAL RECORD, THERE IS UNVERIFIED ALLERGY TO MILK. SHE RECOMMENDS VITAL AF 1.[address] LAL. Addendum: 01/06/18 at 1627 by Beverly Rivas Meng, RN PATIENT HAD RECEIVED 18 ML OF JEVITY 1.2. NO REACTION NOTED. WILL CONTINUE TO MONITOR. JEVITY 1.2 HAS BEEN STOPPED AT THIS TIME.
--- NOTE | 2018-01-06 16:26 | NUR ---
SPOKE TO RUPERTO PEREZ TO RECOMMEND CHANGING TUBE FEED FORMULA TO VITAL AF 1.2 DUE TO MILK ALLERGY, WILL GIVE RECOMMENDATIONS TO DR. KATIA ROBLES RD
--- NOTE | 2018-01-06 16:33 | NUR ---
PAGED DR. LAL FOR TUBE FEEDING ISSUE.
--- NOTE | 2018-01-06 17:26 | NUR ---
DR. LAL AWARE OF TUBE FEEDING FORMULA ISSUE AND WILL CHANGE FORMULA TO VITAL AF 1.2.
--- NOTE | 2018-01-06 17:46 | NUR ---
CALLED AND LEFT MESSAGE FOR [facility] TO BRING VITAL AF 1.2 FORMULA.
--- NOTE | 2018-01-06 19:20 | NUR ---
STARTED TUBE FEEDING VITAL AF 1.2 AT STARTING RATE OF 20 ML/HR.
--- NOTE | 2018-01-06 19:27 | NUR ---
ENDORSED PLAN OF CARE TO DESKTOP SUPPORT MANAGER RN AT BEDSIDE. PT IN STABLE CONDITION. JOÃO PEREZ AWARE THAT THERE IS MILK COMPONENTS IN VITAL AF AND TO MONITOR FOR POSSIBLE ALLERGIC REACTIONS.
--- NOTE | 2018-01-06 19:27 | NUR ---
RECEIVED REPORT AT BEDSIDE FORM RUPERTO HERNANDEZ RN FOR CONTINUITY OF CARE, PT IN STABLE CONDITION.
[2018-01-06 20:00] VITALS: BP 128/58
--- NOTE | 2018-01-06 21:00 | NUR ---
PT ON WOUND BED, WITH HOB UP 40%. PT SKIN IN TACT WITH IV SITE ON L HAND AND FLUSHED PATENT. N/C RUNNING AT 1L. PT AOX1, LUNG SOUNDS DIMINISHED AND PT BREATHING RATE IS TACHYPNEA AT 26 A MINUTE PT BREATHING SHALLOW BU HAS NO S/S OF DISTRESS 02 IS 99% WITH 1 LITER VIA N/C. BOWEL SOUNDS ACTIVE. GT POSITIVE FOR PLACEMENT AND NO RESIDUAL NOTED. PT GIVEN ALL DUE MEDS. PT ALSO HAS F/C FR 16 WHICH HAS 300 SLIGHTLY CLOUDY YELLOW URINE IN DRAINAGE BAG. OTHER V/S FOLLOWS T 98.2 P 80 B/P 128/58.
[2018-01-06] MEDS: acetaZOLAMIDE 250 MG TAB PO SCH (21:34)
[2018-01-06] MEDS: LORazepam 0.5 MG TAB GT SCH (21:34)
--- NOTE | 2018-01-06 23:00 | NUR ---
PT GTUBE FEEDING CONTINUES TO RUN AT 20MLS, HOWEVER THE FEEDING MACHINE KEEPS BEEPING. PT TUBE RE-PRIMED AND BEEPING STOPPED.
[2018-01-07] VITALS: BP 118/73
--- NOTE | 2018-01-07 00:30 | NUR ---
PT FEEDING RATE WAS BUMPED UP PER ORDER, PT TOLERATING FEEDING WELL, NO RESIDUAL NOTED. V/S FOLLOWS T 97.3 P 61 R 28 B/P 118/73 02 98%. NO S/S OF PAIN OR DISTRESS NOTED
--- NOTE | 2018-01-07 02:00 | NUR ---
PT ASLEEP NO S/S OF PAIN OR DISTRESS NOTED NO SOB NOT PT STILL BREATHING SHALLOW WITH 1 L VIA N/C. ALL FALLS, SEIZURE AND ASPIRATION PRECAUTIONS IN PLACE.
[2018-01-07] MEDS: NACL 0.9% 1,000 ML IV SCH ×2 (02:33→19:13)
[2018-01-07 04:00] VITALS: BP 99/59
[2018-01-07] MEDS: LEVOTHYROXINE 0.05 MG TAB GT SCH (05:54)
[2018-01-07] MEDS: METOCLOPRAMIDE 10 MG/10 ML SYRP UDC GT SCH ×3 (05:55→17:24)
[2018-01-07 06:15] LABS: T4 (THYROXINE) 9.5 ug/dL (4.5-12.0)
[2018-01-07 07:29] LABS: BASOPHILS % (AUTO) 0.1 % (0.0-2.0); EOSINOPHILS % (AUTO) 0.4 % (0.0-4.0); HEMATOCRIT 38.9 % (36-52); HEMOGLOBIN 12.6 g/dL (12.0-18.0); LYMPHOCYTES # (AUTO) 1.7 K/uL (2.0-11.5); MEAN CORPUSCULAR HEMOGLOBIN 27 pg (27-31); MEAN CORPUSCULAR HGB CONC 33 g/dL (33-37); MONOCYTES # (AUTO) 1.4 K/uL (0.8-1.0); MONOCYTES % (AUTO) 13.9 % (1.7-9.3); NEUTROPHILS # (AUTO) 7.3 K/uL (1.8-7.7); NEUTROPHILS % (AUTO) 69.6 % (42.2-75.2); PLATELET COUNT (AUTO) 239 K/uL (140-450); RED BLOOD CELL COUNT(AUTO) 4.63 MIL/uL (4.20-6.10); RED CELL DISTRIBUTION WIDTH 13.4 % (11.6-13.7); WHITE BLOOD COUNT (AUTO) 10.4 K/uL (4.8-10.8)
--- NOTE | 2018-01-07 07:30 | NUR ---
REPORT GIVEN TO DAYSHIFT RN AT BEDSIDE FOR CONTINUTIY OF CARE.
--- NOTE | 2018-01-07 07:35 | NUR ---
RECEIVED PT FROM FRONT OF HOUSE MANAGER NURSEJOÃO, PT IS ASLEEP AND LYING ON THE BED WITH SIDE RAILS UP AND CALL LIGHT WITHIN REACH, FALL PRECAUTION ENFORCED, BED IN LOW POSITION, YELLOW SIGN, YELLOW BAND AND YELLOW GOWN IN PLACE. GILL CATHETER IN PLACE, PT IS ON 1L O2 NC IN PLACE. NO SIGN OF DISTRESS NOTED AND WILL CONTINUE TO MONITOR PT.
[2018-01-07 07:38] LABS: ANION GAP 12.8 (8-16); CARBON DIOXIDE 24.1 mmol/L (21-32); CREATININE 0.7 mg/dL (0.7-1.3); POTASSIUM 3.9 mmol/L (3.5-5.1)
[2018-01-07 07:45] LABS: MAGNESIUM 2.2 mg/dL (1.8-2.4); PHOSPHORUS 3.1 mg/dL (2.5-4.9)
[2018-01-07 08:00] VITALS: BP 96/54
[2018-01-07] MEDS: LORazepam 1 MG TAB GT SCH (09:00)
--- NOTE | 2018-01-07 09:03 | NUR ---
PATIENT HAS BEEN SCREENED AND CATEGORIZED HIGH NUTRITION RISK. PATIENT WILL BE SEEN WITHIN 1-2 DAYS OF ADMISSION. 01/07/[address]
[2018-01-07] MEDS: PANTOPRAZOLE 40 MG INJ VIAL IVP SCH (09:36)
[2018-01-07] MEDS: LACTOBACILLUS RHAMNOSUS GG 1 EACH CAP PO SCH (09:36)
[2018-01-07] MEDS: acetaZOLAMIDE 250 MG TAB PO SCH ×2 (09:37→20:55)
[2018-01-07] MEDS: LEVOFLOXACIN 750 MG/D5W PREMIX 150 ML IV SCH (09:37)
[2018-01-07] MEDS: ASCORBIC ACID 500 MG TAB GT SCH (09:37)
[2018-01-07 12:00] VITALS: BP 127/60
[2018-01-07] MEDS ORDERED: LORazepam 1 MG TAB GT SCH (14:06)
--- NOTE | 2018-01-07 15:13 | NUR ---
01/07/18 RD INITIAL ASSESSMENT COMPLETED PLEASE REFER TO NUTRITION ASSESSMENT UNDER CARE ACTIVITY FOR ESTIMATED NUTRITIONAL NEEDS. 1. CONTINUE VITAL AF 1.2 ELIZABETH @55 ML/HR 70 FLUSH Q4H TOLERATED. 2. RECOMMEND KIM BID. 3. RD TO FOLLOW-UP 2-3 DAYS, HIGH RISK KATIA ROBLES RD
[2018-01-07 16:00] VITALS: BP 100/62
--- NOTE | 2018-01-07 17:29 | NUR ---
PT IS AWAKE LYING ON THE BED, MUMBLING, SIDE RAILS ARE UP AND CALL LIGHT WITHIN REACH, PT WAS REPOSITIONED AND THEN MADE COMFORTABLE ON THE BED. VITAL SIGNS TAKEN AND IS WITHIN NORMAL LIMITS. MEDICATION GIVEN VIA G-TUBE AND NO RESIDUAL NOTED. WILL CONTINUE TO MONITOR PT.
--- NOTE | 2018-01-07 19:15 | NUR ---
ENDORSED PT TO FAMILY SERVICES WORKER NURSE, JOÃO FOR CONTINUITY OF CARE. PT IS AWAKE AND STABLE AT THIS AND HAVING HIS BREATHING TREATMENT, RT ON THE BEDSIDE.
--- NOTE | 2018-01-07 19:15 | NUR ---
RECEIVED ENDORSEMENT FORM KATIE PEREZ DAY SHIFT NURSE AT BEDSIDE FOR CONTINUITY OF CARE, PT IN STABLE CONDITION.
[2018-01-07 20:00] VITALS: BP 112/62
[2018-01-07] MEDS: LORazepam 0.5 MG TAB GT SCH (20:55)
--- NOTE | 2018-01-07 21:00 | NUR ---
PT IN LOW BED HOB UP 45% PT AOX1, V/S FOLLOWS T 98.0 P 93 R 26 B/P 112/62 02 96% WITH 1 LITER VIA N/C. PT NEW IV SITE ON R HAND IS 22G AND RUNNING N/S AT 60 NO S/S OF INFILTRATION NOTED. GT SITE INTACT AND FLUSHED PATENT, 20MLS OF RESIDUAL NOTED VITAL FEEDING RUNNING ORDERED. ALL MEDS DUE AT THIS TIME GIVEN VIA GT. F/C INTACT AND DRAINING CLOUDY YELLOW URINE. PT SEQUENTIALS ON, ALL FOUR SIDE RAILS UP AND FREQUENT ROUNDS DONE.
[2018-01-08] VITALS: BP 125/57
--- NOTE | 2018-01-08 02:00 | NUR ---
PT ON WOUND BED, PT TURNED AND CHANGED AND REPOSITIONED. F/C INTACT AND DRAINING YELLOW URINE. ALL FALLS, SEIZURE AND ASPIRATION PRE -CAUTIONS IN PLACE F/C INTACT AND CONTINUES TO DRAIN YELLOW URINE. GT RUNNING AT VITAL AT 55MLS/HR. N/S RUNNING AT 60MLS/HR.
--- NOTE | 2018-01-08 03:15 | NUR ---
PT IN BED NO S/S OF PAIN OR DISTRESS NOTED T 98.3 P 96 R 20 B/P 115/63 02 97 WITH 1 LITER VIA N/C. PT TURNED AND CHANGED, AND REPOSITIONED.
[2018-01-08] MEDS: HYDROcodone/APAP 7.5/325 MG 1 TAB PO PRN ×2 (05:11→12:42)
--- NOTE | 2018-01-08 05:29 | NUR ---
PT ON WOUND BED, TURNED AND CHANGED, PT MOANING TO HIMSELF AND WAS GIVEN 1 TAB 7/325MG NORCO FOR GENERALIZED PAIN. GT DRESSING REPLACED . PT V/S FOLLOWS T 98.3 P 96 R 20 B/P 115/63 O2 94%.
[2018-01-08] MEDS: LEVOTHYROXINE 0.05 MG TAB GT SCH (05:46)
[2018-01-08] MEDS: METOCLOPRAMIDE 10 MG/10 ML SYRP UDC GT SCH ×3 (05:46→17:09)
[2018-01-08 06:31] VITALS: BP 110/69
[2018-01-08 07:06] LABS: BASOPHILS % (AUTO) 0.3 % (0.0-2.0); EOSINOPHILS # (AUTO) 0.2 K/uL (0-0.4); EOSINOPHILS % (AUTO) 2.1 % (0.0-4.0); HEMOGLOBIN 11.9 g/dL (12.0-18.0); LYMPHOCYTES # (AUTO) 1.6 K/uL (2.0-11.5); LYMPHOCYTES % (AUTO) 21.4 % (20.5-51.1); MEAN CORPUSCULAR HEMOGLOBIN 27 pg (27-31); MEAN CORPUSCULAR HGB CONC 32 g/dL (33-37); MEAN CORPUSCULAR VOLUME 83.6 fL (80-94); MONOCYTES # (AUTO) 0.8 K/uL (0.8-1.0); MONOCYTES % (AUTO) 10.4 % (1.7-9.3); NEUTROPHILS % (AUTO) 65.8 % (42.2-75.2); PLATELET COUNT (AUTO) 245 K/uL (140-450); RED BLOOD CELL COUNT(AUTO) 4.43 MIL/uL (4.20-6.10); RED CELL DISTRIBUTION WIDTH 13.4 % (11.6-13.7); WHITE BLOOD COUNT (AUTO) 7.5 K/uL (4.8-10.8)
--- NOTE | 2018-01-08 07:22 | NUR ---
RECEIVED REPORT FROM SOIL SCIENCE TEACHER CHRIS MOYER AT BEDSIDE. PATIENT IS APHASIC. FLACC 0. PT RESTING COMFORTABLY IN BED. EYES OPEN SPONTANEOUSLY. TUBE FEEDING IN PLACE AT GOAL RATE. PER JOÃO PEREZ, RESIDUALS HAVE BEEN APPROX [address] IN PL[address], DRAINING URINE. SCD IN PLACE. LUNGS CTA. HEART RHYTHM IS REGULAR. IV SITE PATENT AND ASYMPTOMATIC, RUNNING IVF PER MD ORDERS. INTRODUCED SELF AND UPDATED BOARD. ALL SAFETY PRECAUTIONS IN PLACE, WILL CONTINUE TO MONITOR.
[2018-01-08 07:24] LABS: ANION GAP 12.7 (8-16); CARBON DIOXIDE 23.7 mmol/L (21-32); CREATININE 0.7 mg/dL (0.7-1.3); POTASSIUM 4.4 mmol/L (3.5-5.1)
--- NOTE | 2018-01-08 07:24 | NUR ---
ENDORSED CARE AT BEDSIDE TO RUPERTO PEREZ DAYSHIFT NURSE FOR CONTINUITY OF CARE, PT IN STABLE CONDITION.
[2018-01-08 08:00] VITALS: BP 137/65
[2018-01-08] MEDS: acetaZOLAMIDE 250 MG TAB PO SCH (08:16)
[2018-01-08] MEDS: LORazepam 1 MG TAB GT SCH (08:16)
--- NOTE | 2018-01-08 08:16 | NUR ---
SCHEDULED MEDS ADMINISTERED AT THIS TIME. PT RESTING IN BED, FLACC 0. WILL CONTINUE TO MONITOR.
[2018-01-08] MEDS: ASCORBIC ACID 500 MG TAB GT SCH (08:17)
[2018-01-08] MEDS: LACTOBACILLUS RHAMNOSUS GG 1 EACH CAP PO SCH (08:17)
[2018-01-08] MEDS: PANTOPRAZOLE 40 MG INJ VIAL IVP SCH (08:18)
[2018-01-08] MEDS: LEVOFLOXACIN 750 MG/D5W PREMIX 150 ML IV SCH (08:38)
--- NOTE | 2018-01-08 09:15 | NUR ---
PT RESTING IN BED WITH LIGHT SNORING, AROUSABLE BY TOUCH. WILL CONTINUE TO MONITOR.
[2018-01-08] MEDS ORDERED: LEVO500T98 PO (10:23)
[2018-01-08] MEDS: NACL 0.9% 1,000 ML IV SCH ×2 (11:53→21:33)
[2018-01-08 12:00] VITALS: BP 103/65
--- NOTE | 2018-01-08 12:35 | NUR ---
SCHEDULED IV ABX ADMINISTERED AT THIS TIME.
--- NOTE | 2018-01-08 15:02 | NUR ---
GASTRIC RESIDUAL LESS THAN 5 ML. WILL CONTINUE TO MONITOR.
[2018-01-08 16:00] VITALS: BP 118/71
--- NOTE | 2018-01-08 17:09 | NUR ---
ADMINISTERED REGLAN PER MD ORDERS. GASTRIC RESIDUAL LESS THAN 10 ML. WILL CONTINUE TO MONITOR.
--- NOTE | 2018-01-08 18:00 | NUR ---
NOTIFIED DR. MALONEY THAT PT'S PUPILS ARE OF UNEQUAL SIZE. DOCTOR HAS ASSESSED PATIENT AND WILL PUT IN ORDERS.
--- NOTE | 2018-01-08 19:30 | NUR ---
GAVE REPORT TO CORE BLOWER RN AT BEDSIDE. PT IN STABLE CONDITION.
--- NOTE | 2018-01-08 19:35 | NUR ---
RECEIVED PT IN STABLE CONDITION FROM AM NURSE. PT IS ALTERED. ON TELE MONITOR. BEDREST. ON ROOM AIR WITH NO SOB NOTED. SAT 97% . HAS GT FEEDING INFUSING WELL. NO RESIDUAL NOTED. IVF INFUSING WELL ON THE RT HAND#20. HAS GILL CATH TO GRAVITY WITH CLEAR URINE OUTPUT. BERD ON LOW POSITION, SIDE RAILS PADDED FOR SIEZURE PRECAUTION. FREQUENT ROUNDS NEEDED. CALL LIGHT PLACED WITHIN REACH. HAS BLE SCD ON. WILL CONTINUE TO MONITOR.
[2018-01-08 20:00] VITALS: BP 110/71
[2018-01-08] MEDS: acetaZOLAMIDE 250 MG TAB GT SCH (21:04)
[2018-01-08] MEDS: LORazepam 0.5 MG TAB GT SCH (21:04)
--- NOTE | 2018-01-08 22:00 | NUR ---
PT ASLEEP. NO S/S OF ANY DISCOMFORT NOTED.
[2018-01-09] VITALS: BP 114/71
--- NOTE | 2018-01-09 01:30 | NUR ---
ACCOMPANIED PT TO CT DEPT WITH ONE HEATER HELPER FORGE AND TECH . CT HEAD WITHOUT CONTRAST DONE .WILL FOLLOW UP RESULT.
[2018-01-09] MEDS: HYDROcodone/APAP 7.5/325 MG 1 TAB GT PRN (02:04)
--- NOTE | 2018-01-09 02:04 | NUR ---
PT MOANING LIKE IN PAIN. MEDICATED WITH NORCO THRU THE GT. WILL CONTINUE TO MONITOR.
--- NOTE | 2018-01-09 03:04 | NUR ---
PT ASLEEP. NO S/S OF DISCOMFORT NOTED.
[2018-01-09] MEDS: NACL 0.9% 1,000 ML IV SCH ×2 (04:33→19:02)
[2018-01-09 04:47] VITALS: BP 101/61
--- NOTE | 2018-01-09 05:30 | NUR ---
GT FEEDING HAS BEEN BEEPING. NEW TUBING CHANGED. NOW INFUSING WELL.
[2018-01-09] MEDS: LEVOTHYROXINE 0.05 MG TAB GT SCH (06:33)
[2018-01-09] MEDS: METOCLOPRAMIDE 10 MG/10 ML SYRP UDC GT SCH ×3 (06:37→16:30)
--- NOTE | 2018-01-09 06:52 | NUR ---
PT IS AWAKE AT THIS TIME. O2 SAT ON ROOM AIR 94%.
--- NOTE | 2018-01-09 07:14 | NUR ---
ENDORSED PT IN STABLE CONDITION TO AM NURSE FOR CONTINUITY OF CARE.
--- NOTE | 2018-01-09 07:22 | NUR ---
RECEIVED REPORT FROM SPINE SURGEON RN AT BEDSIDE. PATIENT IS APHASIC. FLACC 0. PT RESTING COMFORTABLY IN BED. EYES OPEN SPONTANEOUSLY. PUPILS UNEQUAL. TUBE FEEDING IN PLACE AT GOAL RATE. GILL CATH IN PLACE, DRAINING URINE. SCD IN PLACE. LUNGS CTA. SATURATING WELL ON RA. AFEBRILE. IV SITE PATENT AND ASYMPTOMATIC, RUNNING IVF PER MD ORDERS. INTRODUCED SELF AND UPDATED BOARD. ALL SAFETY PRECAUTIONS IN PLACE, WILL CONTINUE TO MONITOR.
[2018-01-09 07:59] LABS: BASOPHILS % (AUTO) 0.5 % (0.0-2.0); EOSINOPHILS # (AUTO) 0.3 K/uL (0-0.4); EOSINOPHILS % (AUTO) 4.8 % (0.0-4.0); HEMATOCRIT 35.7 % (36-52); HEMOGLOBIN 11.3 g/dL (12.0-18.0); LYMPHOCYTES # (AUTO) 1.8 K/uL (2.0-11.5); LYMPHOCYTES % (AUTO) 33.4 % (20.5-51.1); MEAN CORPUSCULAR HEMOGLOBIN 27 pg (27-31); MEAN CORPUSCULAR HGB CONC 32 g/dL (33-37); MEAN CORPUSCULAR VOLUME 84.1 fL (80-94); MONOCYTES # (AUTO) 0.4 K/uL (0.8-1.0); MONOCYTES % (AUTO) 7.8 % (1.7-9.3); NEUTROPHILS # (AUTO) 2.8 K/uL (1.8-7.7); NEUTROPHILS % (AUTO) 53.5 % (42.2-75.2); PLATELET COUNT (AUTO) 238 K/uL (140-450); RED BLOOD CELL COUNT(AUTO) 4.25 MIL/uL (4.20-6.10); RED CELL DISTRIBUTION WIDTH 13.2 % (11.6-13.7); WHITE BLOOD COUNT (AUTO) 5.3 K/uL (4.8-10.8)
[2018-01-09 08:00] VITALS: BP 119/72
[2018-01-09 08:07] LABS: ANION GAP 11.8 (8-16); CARBON DIOXIDE 22.1 mmol/L (21-32); CREATININE 0.6 mg/dL (0.7-1.3); POTASSIUM 3.9 mmol/L (3.5-5.1)
[2018-01-09 08:11] LABS: PHOSPHORUS 3.2 mg/dL (2.5-4.9)
[2018-01-09] MEDS: LACTOBACILLUS RHAMNOSUS GG 1 EACH CAP GT SCH (09:58)
[2018-01-09] MEDS: PANTOPRAZOLE 40 MG INJ VIAL IVP SCH (09:59)
[2018-01-09] MEDS: LORazepam 1 MG TAB GT SCH (09:59)
[2018-01-09] MEDS: ASCORBIC ACID 500 MG TAB GT SCH (09:59)
[2018-01-09] MEDS: acetaZOLAMIDE 250 MG TAB GT SCH ×2 (10:04→22:15)
--- NOTE | 2018-01-09 10:04 | NUR ---
SCHEDULED MEDICATIONS ADMINISTERED AT THIS TIME. FLACC 0. PT IS AWAKE AND RESTING COMFORTABLY IN BED.
[2018-01-09] MEDS ORDERED: GENTAMICIN PER PHARMACY MC PRN (11:20)
[2018-01-09 12:00] VITALS: BP 102/59
[2018-01-09] MEDS: GENTAMICIN 100 MG in DEXTROSE 5% 100 ML IV SCH (13:28)
--- NOTE | 2018-01-09 13:28 | NUR ---
SCHEDULED IV ABX ADMINISTERED AT THIS TIME. PT CONTINUES TO SATURATE WELL ON RA. VITALS STILL. WILL CONTINUE TO MONITOR.
[2018-01-09 16:00] VITALS: BP 112/64
--- NOTE | 2018-01-09 16:30 | NUR ---
CONTINUES TO TOLERATE TUBE FEEDING WELL. GASTRIC RESIDUAL CONSISTENTLY LESS THAN 5 ML. WILL CONTINUE TO MONITOR. Addendum: 01/09/18 at 1751 by Beverly Rivas Meng, RN SCHEDULED MED ADMINISTERED AT THIS TIME.
--- NOTE | 2018-01-09 19:30 | NUR ---
NEW FEEDING FORMULA STARTED. TUBING CHANGED. REPORT GIVEN TO ELECTRIC DEICER INSPECTOR RN AT BEDSIDE. PT IN STABLE CONDITION.
--- NOTE | 2018-01-09 19:35 | NUR ---
RECEIVED PT IN STABLE CONDITION FROM AM NURSE. AWAKE,BUT NONVERBAL.ON TELE -SR. BEDREST DUE TO BEING QUADRIPLEGIC. NO SOB NOTED. RESPIRATION EVEN AND UNLABORED. WITH IVF INFUSING WELL ON THE RT HAND #20. CLEAR AND PATENT. GT FEEDING . JUST STARTED A NEW BAG BY AM NURSE. INFUSING WELL. NO RESIDUAL NOTED. WITH BLE SCD MACHINE ON. WITH WOUND CARE BED. PT ON CONTACT ISOLATION DUE TO ESBL, MDRO URINE. BED ON LOW POSITION. SIDE RAILS UP X2. CALL LIGHT PLCED WITHIN EASY REACH. NEED FREQUENT ROUNDS. WILL CONTINUE TO MONITOR.
[2018-01-09 20:02] VITALS: BP 97/61
--- NOTE | 2018-01-09 21:30 | NUR ---
PT IS ASLEEP. NO S/S OF ANY DISCOMFORT /PAIN NOTED. NO SOB , RESPIRATION EVEN AND UNLABORED.
[2018-01-09] MEDS: LORazepam 0.5 MG TAB GT SCH (22:16)
--- NOTE | 2018-01-09 23:00 | NUR ---
REPOSITIONED PT FOR COMFORT. NO BM NOTED. WILL CONTINUE TO MONITOR.
[2018-01-10 00:30] VITALS: BP 106/76
[2018-01-10] MEDS: GENTAMICIN 100 MG in DEXTROSE 5% 100 ML IV SCH ×2 (01:00→13:38)
--- NOTE | 2018-01-10 04:07 | NUR ---
[facility] RAD[facility] FOR RESULT OF CT HEAD DONE YESTERDAY. TALKED TO AL . SHE WILL CHECK AND CALL ME.
[2018-01-10 04:35] VITALS: BP 121/72
[2018-01-10] MEDS: HYDROcodone/APAP 7.5/325 MG 1 TAB GT PRN (04:38)
--- NOTE | 2018-01-10 04:38 | NUR ---
PT MOANING, UNEASY. LOOKED IN PAIN. MEDICATED WITH NORCO GT. WILL CONTINUE TO MONITOR.
[2018-01-10] MEDS: LEVOTHYROXINE 0.05 MG TAB GT SCH (06:02)
[2018-01-10] MEDS: METOCLOPRAMIDE 10 MG/10 ML SYRP UDC GT SCH ×3 (06:25→15:41)
--- NOTE | 2018-01-10 07:10 | NUR ---
RECEIVED PT REPORT FROM PERCUSSION TUNER NURSE AT BEDSIDE. PT IS AWAKE, NONVERBAL. ON TELE MONITOR. PT IS QUADRIPLEGIC WITH BUE/BLE CONTRACTURES. NO SOB NOTED. RESPIRATION EVEN AND UNLABORED. IV CATH NOTED TO RIGHT HAND, NS INFUSING WELL AT 60 ML/HR. INTACT AND PATENT. GT FEEDING RUNNING AT 55ML/HR. 0ML RESIDUAL NOTED. SCD MACHINE ON. WITH WOUND CARE BED ON. PT ON CONTACT ISOLATION DUE TO ESBL, MDRO URINE. BED IN LOWEST POSITION. SIDE RAILS UP X2. CALL LIGHT WITHIN REACH. WILL CONTINUE TO MONITOR.
--- NOTE | 2018-01-10 07:10 | NUR ---
ENDORSED PT IN STABLE CONDITION TO AM NURSE FOR CONTINUITY OF CARE.
[2018-01-10 07:38] LABS: BASOPHILS % (AUTO) 0.5 % (0.0-2.0); EOSINOPHILS # (AUTO) 0.3 K/uL (0-0.4); EOSINOPHILS % (AUTO) 5.7 % (0.0-4.0); HEMOGLOBIN 10.9 g/dL (12.0-18.0); LYMPHOCYTES # (AUTO) 1.8 K/uL (2.0-11.5); LYMPHOCYTES % (AUTO) 34.8 % (20.5-51.1); MEAN CORPUSCULAR HEMOGLOBIN 27 pg (27-31); MEAN CORPUSCULAR HGB CONC 32 g/dL (33-37); MEAN CORPUSCULAR VOLUME 83.4 fL (80-94); MONOCYTES # (AUTO) 0.4 K/uL (0.8-1.0); MONOCYTES % (AUTO) 7.2 % (1.7-9.3); NEUTROPHILS # (AUTO) 2.7 K/uL (1.8-7.7); NEUTROPHILS % (AUTO) 51.8 % (42.2-75.2); PLATELET COUNT (AUTO) 292 K/uL (140-450); RED BLOOD CELL COUNT(AUTO) 4.08 MIL/uL (4.20-6.10); RED CELL DISTRIBUTION WIDTH 13.4 % (11.6-13.7); WHITE BLOOD COUNT (AUTO) 5.2 K/uL (4.8-10.8)
[2018-01-10 07:54] LABS: ANION GAP 9.2 (8-16); CARBON DIOXIDE 24.9 mmol/L (21-32); CREATININE 0.6 mg/dL (0.7-1.3); POTASSIUM 4.1 mmol/L (3.5-5.1)
[2018-01-10 08:00] VITALS: BP 110/72
[2018-01-10 08:07] LABS: MAGNESIUM 2.2 mg/dL (1.8-2.4); PHOSPHORUS 3.6 mg/dL (2.5-4.9)
[2018-01-10] MEDS: acetaZOLAMIDE 250 MG TAB GT SCH (09:08)
[2018-01-10] MEDS: ASCORBIC ACID 500 MG TAB GT SCH (09:08)
[2018-01-10] MEDS: PANTOPRAZOLE 40 MG INJ VIAL IVP SCH (09:08)
[2018-01-10] MEDS: LACTOBACILLUS RHAMNOSUS GG 1 EACH CAP GT SCH (09:08)
[2018-01-10] MEDS: LORazepam 1 MG TAB GT SCH (09:09)
--- NOTE | 2018-01-10 09:50 | NUR ---
ORAL CARE DONE. PT TOLERATED WELL. GILL CARE DONE. G TUBE DRESSING CHANGED. Addendum: 01/10/18 at 1535 by Clayton Russ RN G TUBE SITE WAS RINSED WITH NS, PATTED DRY. SITE IS CLEAN, NO REDNESS NOTED.
[2018-01-10] MEDS: NACL 0.9% 1,000 ML IV SCH (11:58)
[2018-01-10 12:00] VITALS: BP 102/62
--- NOTE | 2018-01-10 12:13 | NUR ---
Cath Lab Nurse Note: I faxed inquiry to [facility] [address] [place] [address] and [facility] [address] [place] [address], and spoke with Sy from these two facilities. Per Sy, she reviewed inquiry and this patient would be medically appropriate for [facility], however, they dont have any rooms available at this time. Sy stated patient is not medically appropriate for [facility] since patients at this facility require less assistance with ADLs. I faxed inquiry to MRI CT TECH Connor Oliva of [facility], fax number , phone number . Connor came to hospital to evaluate patient. Per Connor, he will contact board and care facilities and will let me know if he can find a board and care facility that is able to accept patient. Addendum: 01/10/18 at 1236 by Mila Medina SS please disregard above note, wrong patient.
--- NOTE | 2018-01-10 12:37 | NUR ---
Jewel Hole Driller Note: I faxed inquiry to [facility]. Per Yoni from [facility] , patient has been accepted and may go to room 34A at their facility after 2pm today, accepting physician is .
--- NOTE | 2018-01-10 12:55 | NUR ---
[id number] CALLED [facility] AND SPOKE WITH TROLLEY CAR MECHANIC LUIS DANIEL SNYDER AND INFORMED HER THAT PT WILL TRANSFER TO SNF [facility] FOR 5 DAYS OF IV ABX THEN RETURN TO HIS HOME. ALSO CALLED LYNN HARRIS WORK FOR PT AT [facility] [phone] AND LEFT VM THAT PT WILL TRANSFER TO [facility] FOR 5 DAYS OF IV ABX THEN RETURN TO HIS HOME.
--- NOTE | 2018-01-10 12:56 | NUR ---
CALLED LAB FOR GENTAMICIN TROUGH. LAB STATED OFFICE ASST IS NOT HERE, PROBABLY OVER THERE.
[2018-01-10] MEDS ORDERED: [UNRECOGNIZED DRUG - CODE] IV (13:04)
--- NOTE | 2018-01-10 15:08 | NUR ---
1435 RECEIVED A CALL FROM [facility] PH[facility]APH[facility] LABORATORY SUPERVISOR AND SHE ACKNOWLEDGED THAT SHE IS IN AGREEMENT WITH PT GOING TO [facility] TO CONTINUE IV ABX. PT WILL BE PICKED UP BY [facility] [phone] AND WILL BE A [place] BILL PT DOES NOT MEET [facility] FOR AMBULANCE TRANSPORT AND HAS NO FAMILY. JUDE ASSIGNED NURSE INFORMED OF FRAME WIRER TIME. CALLED [facility] AND LEFT VM THAT PT WILL BE PICKED UP AT 1630 TO GO TO [facility].
--- NOTE | 2018-01-10 15:19 | NUR ---
CALLED [facility], REPORT GIVEN TO NURSE DRAKE. GOING TO RM 34A.
[2018-01-10 16:00] VITALS: BP 110/53
--- NOTE | 2018-01-10 16:20 | NUR ---
BM X1 SMALL AMOUNT, DANITA. GILL OUTPUT 1200ML. GILL DC'D, PT TOLERATED WELL. PT WAS CLEANED AND CHANGED BY THE CNAS. Addendum: 01/10/18 at 1702 by Clayton Russ RN IV DISCONNECTED, IV CATH LEFT IN PLACE TO CONTINUED ABX TX. G TUBE FEEDING LINE DISCONNECTED, CLAMPED TO PT.
--- NOTE | 2018-01-10 16:50 | NUR ---
[facility] [employer] SALES REPRESENTATIVE ARE HERE TO TAKE THE PT. PT LEFT IN STABLE CONDITION AND WITH ALL HIS BELONGINGS.
== END 2018-01-10 16:50 | DRG 871 ==
LOC: MED 07:56 → MTU 09:56
PROVIDERS: ADMIT General Practice; ATTEND General Practice
DX: A41.51 Sepsis due to Escherichia coli [E. coli] (principal); R53.2 Functional quadriplegia; E87.1 Hypo-osmolality and hyponatremia; E44.0 Moderate protein-calorie malnutrition; N39.0 Urinary tract infection, site not specified; G91.2 (Idiopathic) normal pressure hydrocephalus; J45.909 Unspecified asthma, uncomplicated; F79 Unspecified intellectual disabilities; E03.9 Hypothyroidism, unspecified; Z68.23 Body mass index [BMI] 23.0-23.9, adult; R33.9 Retention of urine, unspecified; G47.33 Obstructive sleep apnea (adult) (pediatric); I50.9 Heart failure, unspecified; B96.20 Unspecified Escherichia coli [E. coli] as the cause of diseases classified elsewhere; G40.909 Epilepsy, unspecified, not intractable, without status epilepticus; Z16.12 Extended spectrum beta lactamase (ESBL) resistance; Z86.14 Personal history of Methicillin resistant Staphylococcus aureus infection; Z86.718 Personal history of other venous thrombosis and embolism; Z87.442 Personal history of urinary calculi; Z88.0 Allergy status to penicillin; Z88.1 Allergy status to other antibiotic agents; Z91.012 Allergy to eggs; Z91.011 Allergy to milk products; Z91.018 Allergy to other foods; Z79.899 Other long term (current) drug therapy; Z74.01 Bed confinement status; Z93.1 Gastrostomy status
CPT/HCPCS: 36415; 51702; 70450; 71045; 80048; 80053; 80170; 80305; 81003; 82140; 82550; 83036; 83605; 83690; 83735; 83880; 84100; 84436; 84443; 84479; 84484; 85025; 85610; 85730; 87040; 87081; 87086; 87186; 87804; 93005; 94640; 96365; 96366; 99285; C9113; J0696; J1580; J1956; J7030; J7060; J7620; J8597; Q0092

== ENCOUNTER 2018-06-21 08:03 | Emergency (ER) | payer OTHER, MEDICAID ==
[~2018-06-21] VITALS: Ht 167.6 cm; Wt 67.1 kg
[~2018-06-21 08:03] MED LIST changes: +ACET-8470 PO; +ONDA-24 GT; -ONDA4ODT1 GT; +[UNRECOGNIZED DRUG - CODE] IV; -[UNRECOGNIZED DRUG - CODE] PO
[2018-06-21 08:05] VITALS: BP 110/71
--- NOTE | 2018-06-21 08:27 | NUR ---
Patient being evaluated by physician at bedside.
[2018-06-21] MEDS ORDERED: NACL 0.9% 2,000 ML IV SCH (08:34)
[2018-06-21] MEDS ORDERED: FAMOTIDINE 20 MG TAB PO ONE (08:35)
[2018-06-21] MEDS ORDERED: MAG SULF 2000 MG/WATER PREMIX 50 ML IV ONE (08:35)
[2018-06-21] MEDS ORDERED: LACTULOSE 20 GM/30 ML UDC PO ONE (08:35)
[2018-06-21] MEDS ORDERED: CLINDAMYCIN 900 MG in DEXTROSE 5% 100 ML IV ONE (08:35)
[2018-06-21] MEDS ORDERED: LEVOFLOXACIN 500 MG/D5W PREMIX 100 ML IV ONE (08:35)
[2018-06-21] MEDS ORDERED: methylPREDNISolone SS 125 MG/2 ML VIAL IVP ONE (08:35)
[2018-06-21] MEDS ORDERED: ALBUTEROL SULFATE/IPRATROPIU 3 ML SOL IH ONE (08:35)
[2018-06-21] MEDS ORDERED: METOCLOPRAMIDE 10 MG TAB PO ONE (08:35)
--- NOTE | 2018-06-21 08:39 | NUR ---
XRAY AT BEDSIDE
[2018-06-21] MEDS ORDERED: CLINDAMYCIN 900 MG/6 ML VIAL IV ONE (09:26)
[2018-06-21 09:27] LABS: BASOPHILS % (AUTO) 0.2 % (0.0-2.0); EOSINOPHILS # (AUTO) 0.2 K/uL (0-0.4); EOSINOPHILS % (AUTO) 2.3 % (0.0-4.0); HEMATOCRIT 42.3 % (36-52); HEMOGLOBIN 13.4 g/dL (12.0-18.0); LYMPHOCYTES # (AUTO) 1.2 K/uL (2.0-11.5); LYMPHOCYTES % (AUTO) 15.8 % (20.5-51.1); MEAN CORPUSCULAR HEMOGLOBIN 26 pg (27-31); MEAN CORPUSCULAR HGB CONC 32 g/dL (33-37); MEAN CORPUSCULAR VOLUME 83.1 fL (80-94); MONOCYTES # (AUTO) 0.9 K/uL (0.8-1.0); MONOCYTES % (AUTO) 11.5 % (1.7-9.3); NEUTROPHILS # (AUTO) 5.4 K/uL (1.8-7.7); NEUTROPHILS % (AUTO) 70.2 % (42.2-75.2); PLATELET COUNT (AUTO) 327 K/uL (140-450); RED BLOOD CELL COUNT(AUTO) 5.09 MIL/uL (4.20-6.10); RED CELL DISTRIBUTION WIDTH 14.4 % (11.6-13.7); WHITE BLOOD COUNT (AUTO) 7.7 K/uL (4.8-10.8)
[2018-06-21 09:38] LABS: ANION GAP 12.4 (8-16); CARBON DIOXIDE 26.6 mmol/L (21-32); CREATININE 0.7 mg/dL (0.7-1.3)
[2018-06-21 09:53] LABS: ALBUMIN 3.4 g/dL (3.4-5.0); TOTAL BILIRUBIN 0.2 mg/dL (0.0-1.0)
[2018-06-21 09:55] LABS: PROTHROMBIN TIME 10.3 secs (10.8-13.4)
--- NOTE | 2018-06-21 10:16 | NUR ---
PER BAR ATTENDANT, ABDOMINAL BINDER ALREADY PRESENT AND APPLIED, RN AND MD MADE AWARE
--- NOTE | 2018-06-21 10:49 | NUR ---
spoke with dr. ellison concerning pt being placed on bipap pt's o2sat is 94% on 1.5 lnc and rr is 20 with no signs of distress noted will hold off on bipap as of now dr. ellison waiting on lab results
--- NOTE | 2018-06-21 14:00 | NUR ---
PT ADDRESS [address] [facility]
[2018-06-21 14:22] VITALS: BP 106/88
== END 2018-06-21 15:15 | disposition home or self-care (01) ==
LOC: MED 08:03
DX: J06.9 Acute upper respiratory infection, unspecified (principal); K94.23 Gastrostomy malfunction; I50.9 Heart failure, unspecified; E03.9 Hypothyroidism, unspecified; Z88.0 Allergy status to penicillin; Z88.1 Allergy status to other antibiotic agents; Z91.012 Allergy to eggs; Z86.73 Personal history of transient ischemic attack (TIA), and cerebral infarction without residual deficits; Z79.899 Other long term (current) drug therapy
CPT/HCPCS: 36415; 36600; 71045; 80053; 82550; 82553; 82803; 83605; 83874; 83880; 84484; 85025; 85610; 85730; 87040; 93005; 94640; 96365; 96366; 96368; 96375; 99284; J1956; J2930; J3475; J3490; J7030; J7620; J8597; Q0092; 96374

== ENCOUNTER 2018-07-11 11:16 | Emergency (ER) | payer OTHER, MEDICAID ==
[~2018-07-11] VITALS: Ht 170.2 cm; Wt 70.8 kg
--- NOTE | 2018-07-11 11:16 | NUR ---
Patient [facility] B[facility] from facility, transferred to bed 9. RN evaluating patient at bedside.
[2018-07-11 11:18] VITALS: BP 143/80
--- NOTE | 2018-07-11 11:20 | NUR ---
BRIAN BOWMAN FROM [facility] IN [place] WITH HIS RIVET CATCHER AND C/O LT UPPER EXTREMITY SWELLING SINCE LAST NIGHT. DENIES INJURY. PT HAS SEVERE MENTAL RETARDATION. HOB UP. BED SIDE RAILS UP X1. ON LOW BED POSITION, LOCKED. ER MADE AWARE OF PT STATUS.
--- NOTE | 2018-07-11 11:33 | NUR ---
respiratory care technician at bedside.
[2018-07-11] MEDS ORDERED: BACL10TA4 GT (11:44)
[2018-07-11] MEDS ORDERED: MIRABULK GT (11:44)
[2018-07-11] MEDS ORDERED: FLOR250 GT (11:44)
[2018-07-11] MEDS ORDERED: VITD1000 PO (11:44)
[2018-07-11] MEDS ORDERED: ASCO500T45 GT (11:44)
[2018-07-11] MEDS ORDERED: RANI150C PO (11:44)
--- NOTE | 2018-07-11 11:44 | NUR ---
radiology at bedside
--- NOTE | 2018-07-11 13:55 | NUR ---
Dr. Aparicio re-evaluating patient at bedside.
--- NOTE | 2018-07-11 14:28 | NUR ---
LEFT ARM WAS PUT ON THE ARM SLING. + CMS
--- NOTE | 2018-07-11 14:30 | NUR ---
TRANSPORT CAME TO [facility] PT [facility]IA [facility]
[2018-07-11 14:38] VITALS: BP 106/70
--- NOTE | 2018-07-11 14:38 | NUR ---
Patient discharged with v/s stable. Written and verbal after care instructions given and explained. Patient verbalized understanding. [facility]. All questions addressed prior to discharge. Advised to follow up with PMD.
== END 2018-07-11 14:38 ==
LOC: MED 11:16
DX: M79.89 Other specified soft tissue disorders (principal); J45.909 Unspecified asthma, uncomplicated; I50.9 Heart failure, unspecified; E03.9 Hypothyroidism, unspecified; Z86.73 Personal history of transient ischemic attack (TIA), and cerebral infarction without residual deficits; Z79.899 Other long term (current) drug therapy; Z88.1 Allergy status to other antibiotic agents; Z88.0 Allergy status to penicillin; Z91.018 Allergy to other foods
CPT/HCPCS: 73060; 73090; 73130; 99283; Q0092

== ENCOUNTER 2018-10-13 14:53 | Inpatient (IN) | payer OTHER, MEDICAID ==
[~2018-10-13] VITALS: Ht 152.4 cm; Wt 75.3 kg
[~2018-10-13 14:53] MED LIST changes: +BACL10TA4 GT; +FLOR250 GT; +MIRABULK GT; +RANI150C PO; +VITD1000 PO
--- NOTE | 2018-10-13 14:55 | NUR ---
PT [facility] TO ER BED 08
[2018-10-13 15:04] VITALS: BP 125/81
--- NOTE | 2018-10-13 15:15 | NUR ---
KIRBY FROM [facility] W C/O REPORTED ALLERGIC REACTION TO BACTRIM. PER ARM, BACTRIM WAS STARTED YESTERDAY AND THE REACTION WAS NOTICED, ANOTHER DOSE WAS GIVEN AT 7AM TODAY AND THE REACTION WORSENED. [facility] REPORTED 100MG BENADRYL GIVEN AT 1PM TODAY. PT HAS RED PATCHES LOCATED ON BUE/BLE. WOUND WITH EXUDATE NOTED ON LLE/CALF. PT IS NON VERBAL. GCS 15. PT ARRIVED ON 2L O2. SKIN IS PINK/WARM/DRY, BUT GENERALIZED BODY RASH, AND ONE 3X 2 OPENED BLISTER ON LEFT INNER WRIST AND ONE WOUND WITH YELLOWISH DRANIEGE ON LEFT FOOT NOTICED; PT POSITIONED FOR COMFORT; HOB ELEVATED; BEDRAILS UP X2; BED DOWN. ER MD MADE AWARE OF PT STATUS. CARE ASHLEY IS AT BEDSIDE.
--- NOTE | 2018-10-13 15:15 | NUR ---
Note undone in EDM - 10/13/18 at 1912 by TYLER KIRBY FROM [facility] W C/O REPORTED ALLERGIC REACTION TO BACTRIM. PER ARM, BACTRIM WAS STARTED YESTERDAY AND THE REACTION WAS NOTICED, ANOTHER DOSE WAS GIVEN AT 7AM TODAY AND THE REACTION WORSENED. [facility] REPORTED 100MG BENADRYL GIVEN AT 1PM TODAY. PT HAS RED PATCHES LOCATED ON BUE/BLE. WOUND WITH EXUDATE NOTED ON LLE/CALF. PT IS NON VERBAL. GCS 15. PT ARRIVED ON 2L O2. SKIN IS PINK/WARM/DRY, BUT GENERALIZED BODY RASH NOTICED; PT POSITIONED FOR COMFORT; HOB ELEVATED; BEDRAILS UP X2; BED DOWN. ER MD MADE AWARE OF PT STATUS. CARE ASHLEY IS AT BEDSIDE.
[2018-10-13] MEDS ORDERED: methylPREDNISolone SS 125 MG/2 ML VIAL IVP ONE (15:25)
[2018-10-13] MEDS ORDERED: FAMOTIDINE 20 MG/2 ML VIAL IVP ONE (15:25)
[2018-10-13] MEDS ORDERED: NACL 0.9% 1,000 ML IV ONE (15:25)
[2018-10-13] MEDS ORDERED: ONDANSETRON 4 MG/2 ML VIAL IVP ONE (15:25)
[2018-10-13] MEDS ORDERED: ALBUTEROL 0.083% 2.5 MG/3 ML NEBU INH ONE (15:25)
[2018-10-13] MEDS ORDERED: diphenhydrAMINE 50 MG/ML VIAL IVP ONE (15:25)
[2018-10-13 16:04] LABS: BASOPHILS % (AUTO) 0.1 % (0.0-2.0); HEMATOCRIT 44.7 % (36-52); HEMOGLOBIN 14.5 g/dL (12.0-18.0); LYMPHOCYTES # (AUTO) 0.3 K/uL (2.0-11.5); MEAN CORPUSCULAR HEMOGLOBIN 27 pg (27-31); MEAN CORPUSCULAR HGB CONC 33 g/dL (33-37); MEAN CORPUSCULAR VOLUME 81.7 fL (80-94); MONOCYTES # (AUTO) 0.2 K/uL (0.8-1.0); MONOCYTES % (AUTO) 2.7 % (1.7-9.3); NEUTROPHILS # (AUTO) 7.5 K/uL (1.8-7.7); PLATELET COUNT (AUTO) 221 K/uL (140-450); RED BLOOD CELL COUNT(AUTO) 5.47 MIL/uL (4.20-6.10); RED CELL DISTRIBUTION WIDTH 14.4 % (11.6-13.7)
[2018-10-13 16:06] LABS: LYMPHOCYTES % (AUTO) 3.5 % (20.5-51.1); NEUTROPHILS % (AUTO) 93.7 % (42.2-75.2)
[2018-10-13 16:20] LABS: ANION GAP 17.5 (8-16); CARBON DIOXIDE 22.1 mmol/L (21-32); POTASSIUM 4.6 mmol/L (3.5-5.1)
[2018-10-13 16:26] LABS: ALBUMIN 3.9 g/dL (3.4-5.0); TOTAL BILIRUBIN 0.3 mg/dL (0.0-1.0)
--- NOTE | 2018-10-13 18:15 | NUR ---
THE ERYTHMA ON ALLEGIC RASH ARE BECOMING PARTY PLAN SALES UNIT ADVISOR.
--- NOTE | 2018-10-13 18:45 | NUR ---
PT'S URINE COLLECTED THROUGH STRAIGHT CATHETER. URINE OUTPUT 200ML.
--- NOTE | 2018-10-13 19:00 | NUR ---
RECEIVED BEDSIDE REPORT FROM EXPORT ADMINISTRATOR PENNY. PT STABLE, AWAKE, ALERT AND ORIENTED X1. NO SIGNS OF DISTRESS NOTED. NO REDNESS, SWELLING, OR INFLAMMATION NOTED ON IV SITE. CALL LAUREN WITHIN REACH. BED IN LOWEST POSITION, BED ALARM ON. SAFETY MEASURES IN PLACE. PLAN OF CARE REVIEWED.
--- NOTE | 2018-10-13 19:00 | NUR ---
Patient will be admitted to care of ALLERGY REACTION. Admited to [facility]. Will go to room 107B. Belongings list completed. Report to CHRIS MELENDEZ.
--- NOTE | 2018-10-13 19:08 | NUR ---
ENDORSED PT TO CHRIS HOFFMANN FOR CONTINUITY OF CARE. PT STABLE.
[2018-10-13 19:09] VITALS: BP 127/76
--- NOTE | 2018-10-13 19:09 | NUR ---
RECIEVED PT ON BED AWAKE , NON VERBAL DUE TO MENTAL STATUS ,WITH HX OF MENTAL RETARDATION , NID ,WITH MILD COURSE IN THE LEFT LOWER LOBE UPON BREATHING BUT NO RETRACTION NOTED, O2 SAT 96% BP WNL ,WITH IV SITE INTACT AND PATENT , ON BREATHING TREATMENT , ON BENADRYL , ON PREDNISONE , WITH O2 /NC AT 4LPM ,WITH EXUDATE OPEN WOUND AT THE LLE AND REDNESS ON THE LEFT WRIST AND RIGHT BIG FINGER ON THE RIGHT HAND , WITH MINIMAL REDNESS ON THE BUTTOCKS BUT SKIN IS INTACT.WITH G TUBE INTACT AND PATENT , NPO UNTIL FURTHER ORDER , ADMISSION ASSESSMENT DONE , MRSA SPECIMEN COLLECTED AND SENT TO LAB , PUT ON FALL RISK PREVATION PROTOCOL , CALL LIGHT WITH REACH , BED IN LOW POSITION ,SIDERAILS UPX2 , IV SITE INTACT AND PATENT.RADHA CONTINUE TO MONITOR.
[2018-10-13 19:22] LABS: APPEARANCE,URINE CLEAR (CLEAR); BILIRUBIN,URINE NEGATIVE (NEGATIVE); BLOOD, URINE NEGATIVE (NEGATIVE); COLOR,URINE YELLOW (YELLOW); LEUKOCYTE ESTERASE ,URINE TRACE (NEGATIVE); NITRITE, URINE POSITIVE (NEGATIVE); UGLUCOSE NEGATIVE (NEGATIVE)
[2018-10-13] MEDS ORDERED: [UNRECOGNIZED DRUG - OTHER] TP PRN (19:50)
[2018-10-13] MEDS ORDERED: SODIUM PHOSPHATE 118 ML ENEM RC PRN (19:50)
[2018-10-13] MEDS ORDERED: NON-FORMULARY ITEM (Acetaminophen 650 MG) GT PRN (19:50)
[2018-10-13] MEDS ORDERED: CLINDAMYCIN PHOS TP PRN (19:50)
[2018-10-13] MEDS ORDERED: ONDANSETRON 4 MG ODT PO PRN (19:50)
[2018-10-13] MEDS ORDERED: BENZOYL PEROX TP PRN (19:50)
[2018-10-13] MEDS ORDERED: BISACODYL 10 MG SUPP RC PRN (19:50)
[2018-10-13] MEDS: DEXT 5% /NACL 0.9% 1,000 ML IV SCH (19:55)
[2018-10-13] MEDS ORDERED: HYDROcodone/APAP 5/325 MG 1 TAB TAB GT PRN (19:55)
[2018-10-13] MEDS ORDERED: LORazepam 2 MG/ML VIAL IVP PRN (19:55)
[2018-10-13] MEDS ORDERED: ACETAZOLAMIDE 250 MG PO SCH (21:00)
[2018-10-13] MEDS: ALBUTEROL 0.083% 2.5 MG/3 ML NEBU INH SCH (21:00)
--- NOTE | 2018-10-13 22:00 | NUR ---
MADE ROUNDS , NOT IN DISTRESS , IVF INFUSING WELL, CALL LIGHT WITHIN REACH ,WILL CONTINUE TO MONITOR.
[2018-10-13] MEDS: methylPREDNISolone SS 40 MG/ML VIAL IVP SCH (22:08)
[2018-10-13] MEDS: FAMOTIDINE 20 MG/2 ML VIAL IV SCH (22:09)
[2018-10-14] VITALS: BP 120/69
--- NOTE | 2018-10-14 | NUR ---
MADE ROUNDS, IV SITE LEAKING , PULL OUT - INTACT CANNULA NEEDLE , MINIMAL BLEEDING , FOR IV CANNULA REINSERTION.,WILL CONTINUE TO MONITOR.
--- NOTE | 2018-10-14 01:00 | NUR ---
IV CANULLA RE INSERTED -PROCEDURE TOLERATED WELL . IVF INFUSING WELL , WILL CONTINUE TO MONITOR
[2018-10-14] MEDS: diphenhydrAMINE 50 MG/ML VIAL IVP SCH ×4 (01:14→18:02)
--- NOTE | 2018-10-14 02:00 | NUR ---
PT HAD MEDIUM SIZE ,SEMI SOLID STOOL , VOIDED FREELY , CHANGE POSITION - OFF LOAD PRESSURE AREAS ,WILL CONTINUE TO MONITOR.
[2018-10-14 04:00] VITALS: BP 112/70
--- NOTE | 2018-10-14 04:00 | NUR ---
MADE ROUNDS , PT IS NOT IN DISTRESS ,SLEEPING SOUNDLY ,WILL CONTINUE TO MONITOR ,BED IN LOW POSITION,WILL CONTINUE TO MONITOR.
[2018-10-14] MEDS: DEXT 5% /NACL 0.9% 1,000 ML IV SCH ×2 (05:15→18:01)
--- NOTE | 2018-10-14 06:00 | NUR ---
MADE ROUNDS , NOT IN DISTRESS , RESTING ON BED , ON S2 PRECAUTION PROTOCOL , STIL ON NPO , TILL FURTHER ORDERS.,WILL CONTINUE TO MONITOR.
[2018-10-14 06:52] LABS: ALBUMIN 3.5 g/dL (3.4-5.0); CARBON DIOXIDE 21.4 mmol/L (21-32); CREATININE 0.8 mg/dL (0.7-1.3); POTASSIUM 4.4 mmol/L (3.5-5.1); TOTAL BILIRUBIN 0.3 mg/dL (0.0-1.0)
[2018-10-14 07:25] LABS: BASOPHILS % (AUTO) 0.1 % (0.0-2.0); HEMATOCRIT 42.3 % (36-52); HEMOGLOBIN 13.7 g/dL (12.0-18.0); LYMPHOCYTES # (AUTO) 0.4 K/uL (2.0-11.5); LYMPHOCYTES % (AUTO) 11.6 % (20.5-51.1); MEAN CORPUSCULAR HEMOGLOBIN 27 pg (27-31); MEAN CORPUSCULAR HGB CONC 32 g/dL (33-37); MEAN CORPUSCULAR VOLUME 82.5 fL (80-94); MONOCYTES # (AUTO) 0.1 K/uL (0.8-1.0); MONOCYTES % (AUTO) 2.1 % (1.7-9.3); NEUTROPHILS # (AUTO) 2.7 K/uL (1.8-7.7); NEUTROPHILS % (AUTO) 86.2 % (42.2-75.2); PLATELET COUNT (AUTO) 221 K/uL (140-450); RED BLOOD CELL COUNT(AUTO) 5.13 MIL/uL (4.20-6.10); RED CELL DISTRIBUTION WIDTH 14.3 % (11.6-13.7); WHITE BLOOD COUNT (AUTO) 3.1 K/uL (4.8-10.8)
[2018-10-14] MEDS ORDERED: ACETAMINOPHEN 650 MG/20.3 ML UDC GT PRN (07:30)
--- NOTE | 2018-10-14 07:30 | NUR ---
ENDORSED TO AM SHIFT FOR CONTINUITY OF CARE.
--- NOTE | 2018-10-14 07:35 | NUR ---
RECEIVED PT FROM INTEGRATION SOLUTION ARCHITECT NURSE, PT IS AWAKE,NO-VERBAL, IV ON THE LEFT HAND G.24 WITH NS INFUSING AT 100ML/HR, O2 VIA NC IN PLACE, SAFETY AND FALL PRECAUTION ENFORCED, NO SIGN OF DISTRESS NOTED, RESPIRATION IS EVEN. WILL CONTINUE TO MONITOR PT.
[2018-10-14 08:00] VITALS: BP 120/75
--- NOTE | 2018-10-14 08:58 | NUR ---
PATIENT HAS BEEN SCREENED AND CATEGORIZED HIGH NUTRITION RISK. PATIENT WILL BE SEEN WITHIN 1-2 DAYS OF ADMISSION. 10/13/18-10/14/[address]
[2018-10-14] MEDS ORDERED: METOCLOPRAMIDE HCL GT SCH (09:00)
[2018-10-14] MEDS ORDERED: SACCHAROMYCES BOULARDII 500 MG GT SCH (09:00)
[2018-10-14] MEDS ORDERED: NON-FORMULARY ITEM (Cholecalciferol (Vitamin D3) (Vitamin D3) 2,000 IU) GT SCH (09:00)
[2018-10-14] MEDS ORDERED: NON-FORMULARY ITEM (Ranitidine HCl (Ranitidine Hcl) 1 CAP) PO SCH (09:00)
[2018-10-14] MEDS: ALBUTEROL 0.083% 2.5 MG/3 ML NEBU INH SCH ×2 (09:02→19:32)
--- NOTE | 2018-10-14 10:00 | NUR ---
WOUND CARE EVALUATION IS BEING DONE TO PT NOW BY WOUND CARE NURSE NOW.
[2018-10-14] MEDS: POLYETHYLENE GLYCOL 17 GM/PKT GT SCH (10:19)
[2018-10-14] MEDS: FAMOTIDINE 20 MG/2 ML VIAL IV SCH ×2 (10:20→20:43)
[2018-10-14] MEDS: methylPREDNISolone SS 40 MG/ML VIAL IVP SCH ×2 (10:20→20:43)
[2018-10-14] MEDS: LACTOBACILLUS RHAMNOSUS GG 1 EACH CAP PO SCH (10:20)
[2018-10-14] MEDS: OXYBUTYNIN 5 MG TAB GT SCH (10:21)
[2018-10-14] MEDS: BACLOFEN 10 MG TAB GT SCH ×3 (10:21→18:02)
[2018-10-14] MEDS: CHOLECALCIFEROL 1,000 IU TAB PO SCH (10:21)
[2018-10-14] MEDS: MULTIVITAMIN 1 TAB PO SCH (10:21)
[2018-10-14] MEDS: ASCORBIC ACID 500 MG TAB GT SCH (10:22)
[2018-10-14] MEDS: LEVOTHYROXINE 0.05 MG TAB GT SCH (10:22)
[2018-10-14] MEDS: METOCLOPRAMIDE 10 MG/10 ML SYRP UDC GT SCH ×3 (10:22→18:02)
--- NOTE | 2018-10-14 10:22 | NUR ---
PT IS AWAKE AND WAS REPOSITIONED AND CLEANED WITH THE HELP OF FILM AND VIDEO EDITOR, MEDICATIONS WERE GIVEN VIA G-TUBE AND PT TOLERATED IT. WILL MONITOR PT.
[2018-10-14] MEDS ORDERED: THERAHONEY GEL 42.5 GM TP PRN (10:45)
[2018-10-14] MEDS: acetaZOLAMIDE 250 MG TAB PO SCH ×2 (10:57→20:43)
--- NOTE | 2018-10-14 11:01 | NUR ---
WOUND CARE EVALUATION NOTES: REASON FOR EVALUATION: OPEN WOUND ON LEFT LOWER EXTREMITY COMPLETE SKIN ASSESSMENT DONE ON THIS 58Y/O MALE BIBA FROM [facility] FOR EVALUATION OF WORSENING REDNESS AND IRRITATION OF THE LOWER EXTREMITIES. PAST MEDICAL HX INCLUDE CHF, CVA, SEIZURES, HYPOTHYROIDISM AND MENTAL RETARDATION. ALL ABOVE INFORMATION WAS OBTAINED FROM ADMISSION H&P. LABS ARE WBC 3.0, H/H 13.7/42.3, GLUCOSE 127, ALBUMIN 3.5. PATIENT IS AWAKE BUT NON-VERBAL. SKIN IS WARM TO TOUCH. BILATERAL PEDAL PULSES PRESENT. PT NEEDS TOTAL ASSISTANCE IN TURNING. PLAN OF CARE AND PRESSURE PREVENTIVE MEASURES DISCUSSES WITH PRIMARY NURSE. INTEGUMENTARY: - ERYTHEMA NOTED TO BILATERAL UPPER AND LOWER EXTREMITIES - LEFT LOWER LEG OPEN WOUND WITH MEASUREMENTS 3.5X2.0 CM. WOUND BED IS RED WITH MODERATE SANGUINOUS DISCHARGE - LUQ GT STOMA SITE CLEAN WITH SURROUNDING SKIN INTACT - RIGHT BUTTOCK BLANCHABLE REDNESS RECOMMENDATIONS: - CLEANSE LEFT LOWER LEG WOUND WITH NS, PAT DRY, APPLY THERAHONEY GEL WITH ADAPTIC DRESSING THEN COVER WITH COMPOSITE DRESSING DAILY AND PRN WITH SOILING AND DISPLACEMENT - APPLY HYDRAGUARD BARRIER CREAM TO RIGHT BUTTOCK AND SACROCOCCYX AREA BID AND PRN WITH SOILING - TURN PATIENT Q2H, OFFLOAD BILATERAL HEELS BY PLACING PILLOWS UNDER CALVES AT ALL TIMES, UNLESS OTHERWISE CONTRAINDICATED. -KEEP SKIN CLEAN AND DRY AT ALL TIMES. RECOMMENDATIONS DISCUSSED WITH PRIMARY RN Addendum: 10/14/18 at 1414 by Joel Quach RN -USE SKIN PREP WIPES FOR THE LEFT EAR THEN COVER WITH FOAM DRESSING DAILY OR PRN WITH SOILING AND DISPLACEMENT
[2018-10-14] MEDS: HYDRAGUARD CREAM TP SCH (13:00)
--- NOTE | 2018-10-14 13:30 | NUR ---
A NEW IV LINE WAS INSERTED TO PT ON THE LEFT UA G.22.
[2018-10-14 16:00] VITALS: BP 115/54
--- NOTE | 2018-10-14 16:10 | NUR ---
PT IS AWAKE AND ON HIS RT LATERAL SIDE, V/S CHECKED AND IS WITHIN NORMAL LIMIT. RESPIRATION IS EVEN AND NO SIGN OF DISTRESS NOTED. WILL MONITOR PT.
--- NOTE | 2018-10-14 16:14 | NUR ---
10/14/18 RD INITIAL ASSESSMENT COMPLETED PLEASE REFER TO NUTRITION ASSESSMENT UNDER CARE ACTIVITY FOR ESTIMATED NUTRITIONAL NEEDS. 1. ADVANCE DIET TO PREVIOUS TEXTURE WHEN MEDICALLY APPROPRIATE. 2. RD TO FOLLOW-UP 3-5 DAYS, MODERATE RISK FELICIA CANTU, ROD
--- NOTE | 2018-10-14 18:04 | NUR ---
PT WAS STARTED ON A NEW BAG OF IVF D5NS AT 100ML/HR, MEDICATIONS WERE GIVEN VIA G-TUBE AND IV PUSH, PT TOLERATED IT. WILL MONITOR PT.
--- NOTE | 2018-10-14 19:20 | NUR ---
ENDORSED PT TO SOD FARMER NURSE FOR CONTINUITY OF CARE.
--- NOTE | 2018-10-14 19:21 | NUR ---
RECEIVED BEDSIDE REPORT FROM DAY SHIFT NURSE, PT IS AWAKE,NO-VERBAL, NO SOB OR ANY RESPIRATORY DISTRESS NOTED. IV ON THE LEFT UPPER ARM, 22G, RUNNING D5NS @100 ML/HR, O2 VIA NC IN PLACE, SAFETY AND FALL PRECAUTION ENFORCED, BED IN LOW POSITION, CALL LIGHT WITHIN REACH. WILL CONTINUE TO MONITOR.
--- NOTE | 2018-10-14 20:43 | NUR ---
GIVEN SCHEDULE MED DRCamelia ORDERED. PT TOLERATED WELL. WILL CONTINUE TO MONITOR.
--- NOTE | 2018-10-14 22:15 | NUR ---
PROVIDED ORAL CARE. PT TOLERATED WELL. BED IN LOW POSITION. WILL CONTINUE TO MONITOR.
[2018-10-15] VITALS: BP 125/63
[2018-10-15] MEDS: diphenhydrAMINE 50 MG/ML VIAL IVP SCH ×5 (00:17→23:58)
[2018-10-15] MEDS: HYDRAGUARD CREAM TP SCH ×2 (00:17→13:22)
--- NOTE | 2018-10-15 00:17 | NUR ---
GIVEN BENADRYL AND APPLIED HYDRA GUARD ORDERED. PT TOLERATED WELL.
[2018-10-15] MEDS: DEXT 5% /NACL 0.9% 1,000 ML IV SCH ×3 (02:23→22:32)
--- NOTE | 2018-10-15 02:45 | NUR ---
PT SLEEPING IN BED. NO SOB OR ANY RESPIRATORY DISTRESS NOTED. BED IN LOW POSITION. WILL CONTINUE TO MONITOR.
--- NOTE | 2018-10-15 04:44 | NUR ---
CHANGED PT. BM NOTED. PT TOLERATED WELL. BED IN LOW POSITION.
--- NOTE | 2018-10-15 05:19 | NUR ---
GIVEN BENADRYL DR. ORDERED. PT TOLERATED WELL. WILL CONTINUE TO MONITOR.
[2018-10-15] MEDS: ALBUTEROL 0.083% 2.5 MG/3 ML NEBU INH SCH ×2 (07:02→19:35)
--- NOTE | 2018-10-15 07:25 | NUR ---
RECEIVED BEDSIDE REPORT FROM CHRIS CHRISTIAN. PT STABLE, AWAKE, ALERT AND ORIENTED X1. NO SIGNS OF DISTRESS NOTED. FLACC 0. NO REDNESS, SWELLING, OR INFLAMMATION NOTED ON IV SITE. NPO AT THIS TIME PER MD ORDER. CALL LAUREN WITHIN REACH. BED IN LOWEST POSITION, BED ALARM ON. SAFETY MEASURES IN PLACE. PLAN OF CARE REVIEWED.
--- NOTE | 2018-10-15 07:26 | NUR ---
ENDORSED PT TO DAY SHIFT NURSEAL. PT IN STABLE CONDITION.
[2018-10-15 07:33] LABS: HEMATOCRIT 37.2 % (36-52); HEMOGLOBIN 11.7 g/dL (12.0-18.0); LYMPHOCYTES # (AUTO) 0.4 K/uL (2.0-11.5); MEAN CORPUSCULAR HEMOGLOBIN 26 pg (27-31); MEAN CORPUSCULAR HGB CONC 31 g/dL (33-37); MEAN CORPUSCULAR VOLUME 83.6 fL (80-94); MONOCYTES # (AUTO) 0.3 K/uL (0.8-1.0); MONOCYTES % (AUTO) 5.6 % (1.7-9.3); PLATELET COUNT (AUTO) 202 K/uL (140-450); RED BLOOD CELL COUNT(AUTO) 4.45 MIL/uL (4.20-6.10); RED CELL DISTRIBUTION WIDTH 14.6 % (11.6-13.7); WHITE BLOOD COUNT (AUTO) 5.7 K/uL (4.8-10.8)
[2018-10-15 07:45] LABS: ANION GAP 13.7 (8-16); CARBON DIOXIDE 22.6 mmol/L (21-32); CREATININE 0.7 mg/dL (0.7-1.3); POTASSIUM 4.3 mmol/L (3.5-5.1)
[2018-10-15 08:00] VITALS: BP 106/57
[2018-10-15 08:20] LABS: LYMPHOCYTES % (AUTO) 7.4 % (20.5-51.1)
--- NOTE | 2018-10-15 09:30 | NUR ---
PT REPOSITIONED, LINENS AND GOWN CHANGED.
[2018-10-15] MEDS: POLYETHYLENE GLYCOL 17 GM/PKT GT SCH (10:10)
[2018-10-15] MEDS: OXYBUTYNIN 5 MG TAB GT SCH (10:11)
[2018-10-15] MEDS: LEVOTHYROXINE 0.05 MG TAB GT SCH (10:11)
[2018-10-15] MEDS: MULTIVITAMIN 1 TAB PO SCH (10:11)
[2018-10-15] MEDS: methylPREDNISolone SS 40 MG/ML VIAL IVP SCH ×2 (10:11→20:14)
[2018-10-15] MEDS: ASCORBIC ACID 500 MG TAB GT SCH (10:12)
[2018-10-15] MEDS: FAMOTIDINE 20 MG/2 ML VIAL IV SCH ×2 (10:12→20:14)
[2018-10-15] MEDS: CHOLECALCIFEROL 1,000 IU TAB PO SCH (10:12)
[2018-10-15] MEDS: acetaZOLAMIDE 250 MG TAB PO SCH ×2 (10:13→20:15)
[2018-10-15] MEDS: BACLOFEN 10 MG TAB GT SCH ×3 (10:13→17:56)
[2018-10-15] MEDS: METOCLOPRAMIDE 10 MG/10 ML SYRP UDC GT SCH ×3 (10:14→17:56)
[2018-10-15] MEDS: LACTOBACILLUS RHAMNOSUS GG 1 EACH CAP PO SCH (10:14)
--- NOTE | 2018-10-15 10:15 | NUR ---
ADMINISTERED ALL SCHEDULED MEDICATIONS, PT TOLERATED WELL. NO OTHER NEEDS AT THIS TIME.
--- NOTE | 2018-10-15 12:25 | NUR ---
DR UMANA AT THE BEDSIDE. RECEIVED VERBAL ORDER FROM DR UMANA FOR TUBE FEEDING JEVITY 1.2 AT 50 ML/HR WITH 200ML WATER FLUSH Q6H, HOLD TF IF RESIDUAL REACHES 100ML, RESUME TF WHEN RESIDUAL IS <100ML. WILL PUT IN ORDER.
--- NOTE | 2018-10-15 13:38 | NUR ---
PATIENT LYING DOWN IN BED SLEEPING, AROUSABLE BY VOICE. NO DISTRESS NOTED. SCHEDULED MEDICATIONS DUE GIVEN. WILL CONTINUE TO MONITOR.
--- NOTE | 2018-10-15 14:13 | NUR ---
PT STABLE, AWAKE, RESTING IN BED. NO SIGNS OF DISTRESS NOTED. CALLED [facility] TO FOLLOW UP ON PT'S TUBE FEEDING FORMULA.
[2018-10-15 16:00] VITALS: BP 105/57
--- NOTE | 2018-10-15 16:00 | NUR ---
TUBE FEEDING STARTED PER MD ORDER. WOUND CARE PROVIDED AND DRESSING CHANGED. PT TOLERATED WELL. NO SIGNS OF DISTRESS NOTED.
--- NOTE | 2018-10-15 18:00 | NUR ---
RESIDUAL CHECKED, 15ML. ADMINISTERED ALL SCHEDULED MEDICATIONS, PT TOLERATED WELL. NO OTHER NEEDS AT THIS TIME.
--- NOTE | 2018-10-15 19:20 | NUR ---
ENDORSED PT TO CHRIS BAIN FOR CONTINUITY OF CARE. PT STABLE.
--- NOTE | 2018-10-15 19:21 | NUR ---
RECEIVED BEDSIDE REPORT FROM DAY SHIFT NURSE, AL. PT IS AWAKE, NON-VERBAL, NO SOB OR ANY RESPIRATORY DISTRESS NOTED. IV ON THE LEFT UPPER ARM, 22G, RUNNING D5NS @100 ML/HR, O2 VIA NC IN PLACE, G-TUBE FEEDING RUNNING WITH JEVITY 1.2, SAFETY AND FALL PRECAUTION ENFORCED, BED IN LOW POSITION, CALL LIGHT WITHIN REACH. WILL CONTINUE TO MONITOR.
--- NOTE | 2018-10-15 20:15 | NUR ---
RESIDUAL CHECKED, 5ML NOTED. GIVEN PEPCID, DIAMOX, AND SOLU-MEDROL DR. ORDERED. PT TOLERATED WELL. BED IN LOW POSITION.
--- NOTE | 2018-10-15 22:05 | NUR ---
PT SLEEPING IN BED. NO ACUTE DISTRESS NOTED.
[2018-10-16] VITALS: BP 112/62
--- NOTE | 2018-10-16 | NUR ---
GIVEN BENADRYL MD ORDERED. PT TOLERATED WELL. WILL CONTINUE TO MONITOR. Addendum: 10/16/18 at 0300 by Marci Chu RN VS CHECKED. WITHIN NORMAL RANGE.
[2018-10-16] MEDS: HYDRAGUARD CREAM TP SCH ×2 (01:00→12:13)
--- NOTE | 2018-10-16 02:50 | NUR ---
PT SLEEPING IN BED. BREATHING EVEN AND UNLABORED. NO ACUTE DISTRESS NOTED. BED IN LOW POSITION. WILL CONTINUE TO MONITOR.
[2018-10-16] MEDS: diphenhydrAMINE 50 MG/ML VIAL IVP SCH ×2 (05:01→12:14)
--- NOTE | 2018-10-16 05:01 | NUR ---
GIVEN BENADRYL MD ORDERED. PT TOLERATED WELL.
--- NOTE | 2018-10-16 07:16 | NUR ---
ENDORSED PT TO DAY SHIFT NURSE. PT IN STABLE CONDITION.
--- NOTE | 2018-10-16 07:17 | NUR ---
RECEIVED BEDSIDE REPORT FROM NIGHT NURSE. PT IS ON 2L NC BREATHING UNLABORED WITH G TUBE FEEDINGS INFUSING AND ALL LINES PLACED TO ORIGIN AND LEFT [place] DRESSING ASSESSED AND FOUND TO BE DRY AND INTACT. PT HAS SCDS ON NO OPEN SKIN WOUNDS. PT HAS A LEFT UPPER ARM IV THAT IS INFUSING D5 NORMAL SALINE AT 100 ML/HR. PT IS AOX0 APHASIC. ALL SAFETY MEASURES IN PLACE WITH CALL LIGHT IN REACH CURTAIN OPEN AND PT IN CLEAR VIEW OF ROOM TO CONTINUE TO MONITOR FREQUENTLY.
[2018-10-16] MEDS: ALBUTEROL 0.083% 2.5 MG/3 ML NEBU INH SCH (07:24)
[2018-10-16] MEDS: DEXT 5% /NACL 0.9% 1,000 ML IV SCH (07:55)
[2018-10-16 08:00] VITALS: BP 117/60
[2018-10-16 08:21] LABS: HEMATOCRIT 37.3 % (36-52); HEMOGLOBIN 11.8 g/dL (12.0-18.0); LYMPHOCYTES # (AUTO) 0.6 K/uL (2.0-11.5); MEAN CORPUSCULAR HEMOGLOBIN 26 pg (27-31); MEAN CORPUSCULAR HGB CONC 32 g/dL (33-37); MEAN CORPUSCULAR VOLUME 83.4 fL (80-94); MONOCYTES # (AUTO) 0.4 K/uL (0.8-1.0); MONOCYTES % (AUTO) 6.9 % (1.7-9.3); NEUTROPHILS # (AUTO) 5.1 K/uL (1.8-7.7); PLATELET COUNT (AUTO) 183 K/uL (140-450); RED BLOOD CELL COUNT(AUTO) 4.47 MIL/uL (4.20-6.10); RED CELL DISTRIBUTION WIDTH 14.6 % (11.6-13.7)
[2018-10-16] MEDS: POLYETHYLENE GLYCOL 17 GM/PKT GT SCH (08:51)
[2018-10-16] MEDS: BACLOFEN 10 MG TAB GT SCH ×2 (08:52→12:13)
[2018-10-16] MEDS: CHOLECALCIFEROL 1,000 IU TAB PO SCH (08:52)
[2018-10-16] MEDS: FAMOTIDINE 20 MG/2 ML VIAL IV SCH (08:52)
[2018-10-16] MEDS: LACTOBACILLUS RHAMNOSUS GG 1 EACH CAP PO SCH (08:53)
[2018-10-16] MEDS: ASCORBIC ACID 500 MG TAB GT SCH (08:53)
[2018-10-16] MEDS: OXYBUTYNIN 5 MG TAB GT SCH (08:54)
[2018-10-16] MEDS: LEVOTHYROXINE 0.05 MG TAB GT SCH (08:54)
[2018-10-16] MEDS: acetaZOLAMIDE 250 MG TAB PO SCH (08:54)
[2018-10-16] MEDS: METOCLOPRAMIDE 10 MG/10 ML SYRP UDC GT SCH ×2 (08:54→12:13)
[2018-10-16] MEDS: MULTIVITAMIN 1 TAB PO SCH (08:54)
[2018-10-16] MEDS: methylPREDNISolone SS 40 MG/ML VIAL IVP SCH (08:54)
[2018-10-16] MEDS ORDERED: MUPIROCIN CA NASAL 2% 1GM TUBE NS SCH (09:00)
[2018-10-16] MEDS ORDERED: CHLORHEXADINE GLUC 2% CLOTH TP SCH (09:00)
--- NOTE | 2018-10-16 09:00 | NUR ---
ADMINISTERED MEDICATIONS PT RESTING IN BED WITH SOME SALIVA ON MOUTH. SUCTIONED THIS SALIVA AND ATTEMPTED TO SUCTION MOUTH BUT PATIENT TURNS HEAD AWAY AND WILL NOT OPEN MOUTH FOR ORAL SUCTIONING OF ANY KIND. BREATHING UNLABORED ON 2L NC AT THIS TIME. 0 RESIDUAL IN G TUBE ASPIRATION PRIOR TO MEDICATION ADMINISTRATION.
[2018-10-16 09:05] LABS: LYMPHOCYTES % (AUTO) 9.2 % (20.5-51.1); NEUTROPHILS % (AUTO) 83.9 % (42.2-75.2)
[2018-10-16 09:20] LABS: ANION GAP 14.8 (8-16); CARBON DIOXIDE 22.2 mmol/L (21-32); CREATININE 0.7 mg/dL (0.7-1.3)
--- NOTE | 2018-10-16 09:39 | NUR ---
ADMINISTERED NASAL MEDICATION, PT TOLERATED WELL CURRENTLY IS BEING CHANGED AND CLEANED BY OUTSOLE CEMENTER. NO DISTRESS BREATHING UNLABORED.
--- NOTE | 2018-10-16 10:59 | NUR ---
PT SLEEPING IN BED BREATHING UNLABORED
--- NOTE | 2018-10-16 12:00 | NUR ---
PERFORMED WOUND CARE FOLLOWS - CLEANSE LEFT LOWER LEG WOUND WITH NS, PAT DRY, APPLY THERAHONEY GEL WITH ADAPTIC DRESSING THEN COVER WITH COMPOSITE DRESSING DAILY AND PRN WITH SOILING AND DISPLACEMENT - APPLY HYDRAGUARD BARRIER CREAM TO RIGHT BUTTOCK AND SACROCOCCYX AREA BID AND PRN WITH SOILING MEASUREMENTS AND PHOTOS ALSO TAKEN.
--- NOTE | 2018-10-16 12:17 | NUR ---
ADMINISTERED MEDICATIONS NO DISTRESS.
--- NOTE | 2018-10-16 13:40 | NUR ---
REVIEWED AND HAS SIGN ALL DISCHARGE PAPERWORK WITH TRANSPORTER AND SPOKE ON PHONE TO [facility] VIA HIS REQUEST TO ALSO GO OVER WHAT PAPERWORK I WAS GIVING AND ALL INSTRUCTIONS, DID THIS PER REQUEST. ALSO REMOVED IV AND ID BANDS. NO QUESTIONS FROM TRANSPORTER.
--- NOTE | 2018-10-16 14:13 | NUR ---
PT IS STILL HERE WITH TRANSPORTER STATING PT HAD SOILED HIMSELF AND THEY NEED TO MAKE SURE HE IS NOT ACTIVELY GOING CONTINUOUS BEFORE TRANSPORTING HIM. BUSINESS PERFORMANCE ADVISOR CURRENTLY CLEANING PT AT THIS TIME WELL.
--- NOTE | 2018-10-16 15:00 | NUR ---
PT TRANSPORTED BY [facility] OUT OF HOSPITAL. GAVE REPORT TO HIDE MILL MAN. NO FURTHER QUESTIONS.
== END 2018-10-16 15:00 | DRG 607 ==
LOC: MED 14:53 → MTU 17:51
PROVIDERS: ADMIT Preventive Medicine Preventive Medicine/Occupational Environmental Medicine; ATTEND Preventive Medicine Preventive Medicine/Occupational Environmental Medicine
DX: R21 Rash and other nonspecific skin eruption (principal); T78.40XA Allergy, unspecified, initial encounter; E86.0 Dehydration; S81.802A Unspecified open wound, left lower leg, initial encounter; R06.89 Other abnormalities of breathing; J45.909 Unspecified asthma, uncomplicated; I25.10 Atherosclerotic heart disease of native coronary artery without angina pectoris; I50.9 Heart failure, unspecified; T36.8X5A Adverse effect of other systemic antibiotics, initial encounter; G40.909 Epilepsy, unspecified, not intractable, without status epilepticus; E03.9 Hypothyroidism, unspecified; X58.XXXA Exposure to other specified factors, initial encounter; F79 Unspecified intellectual disabilities; R73.9 Hyperglycemia, unspecified; Z86.73 Personal history of transient ischemic attack (TIA), and cerebral infarction without residual deficits; Z88.0 Allergy status to penicillin; Z88.1 Allergy status to other antibiotic agents; Z91.012 Allergy to eggs; Y92.89 Other specified places as the place of occurrence of the external cause; Y93.89 Activity, other specified; Y99.8 Other external cause status
CPT/HCPCS: 36415; 71045; 80048; 80053; 81003; 82150; 82785; 83690; 85025; 87081; 94640; 96361; 96374; 96375; 99285; A4649; J1200; J2405; J2920; J2930; J3490; J7030; J7042; J7613; J8597; Q0092

== ENCOUNTER 2018-10-17 15:13 | Emergency (ER) | payer OTHER, MEDICAID ==
[~2018-10-17] VITALS: Ht 162.6 cm; Wt 63.5 kg
[2018-10-17 15:24] VITALS: BP 116/67
--- NOTE | 2018-10-17 15:25 | NUR ---
PT BIB [facility] TO ER BED 8
--- NOTE | 2018-10-17 15:43 | NUR ---
BIB AMBULANCE TO THE ED WITH THE CHIEF C/O ABDOMINAL PAIN OR DISCOMFORTS. SUPERVISOR HARVESTING REPORTS OF HAVING DIARRHEA FOR 2 DAYS. NO BLOOD IN DIARRHEA. PT SHOWED ALLERGIC REACTION TO ATB BACTRIM AND HAS STOPPED ON October PER AMBULANCE PERSONNEL. PT NOTED RASHES ALL OVER THE BODY. NOTED WITH DISTENDED ABDOMEN. ACTIVE BOWEL SOUND. NO SOB OR DIFFICULTY BREATHING NOTED. NO RECENT FEVER PER SUPERVISOR HARVESTING. HX OF INTELLECTUAL DISABILITY,NON-VERBAL, ASTHMA, HYPOTHYROIDISM, SEIZURE.
--- NOTE | 2018-10-17 16:10 | NUR ---
Unable to get iv line at this time asked for help.
[2018-10-17 16:28] LABS: BASOPHILS % (AUTO) 0.1 % (0.0-2.0); EOSINOPHILS % (AUTO) 0.6 % (0.0-4.0); HEMATOCRIT 43.1 % (36-52); HEMOGLOBIN 13.5 g/dL (12.0-18.0); LYMPHOCYTES # (AUTO) 2.2 K/uL (2.0-11.5); LYMPHOCYTES % (AUTO) 26.6 % (20.5-51.1); MEAN CORPUSCULAR HEMOGLOBIN 26 pg (27-31); MEAN CORPUSCULAR HGB CONC 31 g/dL (33-37); MEAN CORPUSCULAR VOLUME 84.4 fL (80-94); MONOCYTES # (AUTO) 0.7 K/uL (0.8-1.0); MONOCYTES % (AUTO) 8.5 % (1.7-9.3); NEUTROPHILS # (AUTO) 5.3 K/uL (1.8-7.7); NEUTROPHILS % (AUTO) 64.2 % (42.2-75.2); PLATELET COUNT (AUTO) 101 K/uL (140-450); RED BLOOD CELL COUNT(AUTO) 5.11 MIL/uL (4.20-6.10); RED CELL DISTRIBUTION WIDTH 14.6 % (11.6-13.7); WHITE BLOOD COUNT (AUTO) 8.2 K/uL (4.8-10.8)
[2018-10-17 16:35] LABS: ANION GAP 14.3 (8-16); CARBON DIOXIDE 25.4 mmol/L (21-32); CREATININE 0.7 mg/dL (0.7-1.3); POTASSIUM 3.7 mmol/L (3.5-5.1)
[2018-10-17 16:41] LABS: ALBUMIN 3.4 g/dL (3.4-5.0); TOTAL BILIRUBIN 0.4 mg/dL (0.0-1.0)
--- NOTE | 2018-10-17 16:42 | NUR ---
Urine collected via straight cath. Lab aware.
[2018-10-17 16:49] LABS: PROTHROMBIN TIME 10.6 secs (10.8-13.4)
[2018-10-17 16:52] LABS: APPEARANCE,URINE CLEAR (CLEAR); BILIRUBIN,URINE NEGATIVE (NEGATIVE); BLOOD, URINE NEGATIVE (NEGATIVE); COLOR,URINE YELLOW (YELLOW); LEUKOCYTE ESTERASE ,URINE 1+ (NEGATIVE); NITRITE, URINE NEGATIVE (NEGATIVE); PH,URINE 7.5 (5.0-9.0); UGLUCOSE NEGATIVE (NEGATIVE)
[2018-10-17 17:11] LABS: RBC,URINE 0 /HPF (0-5); WBC,URINE 0-5 /HPF (0-5)
--- NOTE | 2018-10-17 17:50 | NUR ---
UNABLE TO GET IV LINE. DR. BURGESS MADE AWARE.
--- NOTE | 2018-10-17 18:14 | NUR ---
PT APPEARS RELAXED RESTING IN BED. VSS ON MONITOR. AFEBRILE. NO SOB OR RESPIRATORY DISTRESS NOTED. DAYCARE WORKER AT THE BEDSIDE.
--- NOTE | 2018-10-17 18:39 | NUR ---
Patient discharged with v/s stable. Written and verbal after care instructions given and explained to the care management coordinator. Caregiver verbalized understanding. Made aware of [facility] greens picker arrival. All questions addressed prior to discharge. Advised to follow up with PMD.
--- NOTE | 2018-10-17 19:06 | NUR ---
[facility] AT THE BEDSIDE FOR BELL SPINNER. PT ON STABLE CONDITION.
[2018-10-17 19:07] VITALS: BP 97/76
== END 2018-10-17 19:06 ==
LOC: MED 15:13
DX: R21 Rash and other nonspecific skin eruption (principal); R19.7 Diarrhea, unspecified; I50.9 Heart failure, unspecified; E03.9 Hypothyroidism, unspecified; J45.909 Unspecified asthma, uncomplicated; Z88.1 Allergy status to other antibiotic agents; Z88.0 Allergy status to penicillin; Z88.2 Allergy status to sulfonamides; Z88.8 Allergy status to other drugs, medicaments and biological substances; Z91.018 Allergy to other foods; Z86.73 Personal history of transient ischemic attack (TIA), and cerebral infarction without residual deficits; Z79.899 Other long term (current) drug therapy
CPT/HCPCS: 36415; 71045; 80053; 81001; 83605; 83880; 84484; 85025; 85610; 85730; 87040; 87086; 93005; 99284; C1758; Q0092

== ENCOUNTER 2020-03-18 12:12 | Emergency (ER) | payer OTHER, MEDICAID ==
[~2020-03-18] VITALS: Ht 165.1 cm; Wt 68.0 kg
[~2020-03-18 12:12] MED LIST changes: -ASCO500T45 GT; +ASCO500T95 GT; -ATI.5 GT; -LORA-476 GT; -METO5SOL GT; +METO5VIA GT; -PANT40EC GT; -[UNRECOGNIZED DRUG - CODE] IV; -[UNRECOGNIZED DRUG - CODE] TP
--- NOTE | 2020-03-18 12:12 | NUR ---
Patient BIBA ALS, transferred to bed 1. RN evaluating patient at bedside.
[2020-03-18 12:33] VITALS: BP 123/70
[2020-03-18 13:19] LABS: BASOPHILS % (AUTO) 0.2 % (0.0-2.0); EOSINOPHILS % (AUTO) 0.6 % (0.0-4.0); HEMATOCRIT 42.5 % (36-52); HEMOGLOBIN 13.8 g/dL (12.0-18.0); LYMPHOCYTES # (AUTO) 0.8 K/uL (2.0-11.5); LYMPHOCYTES % (AUTO) 17.3 % (20.5-51.1); MEAN CORPUSCULAR HEMOGLOBIN 28 pg (27-31); MEAN CORPUSCULAR HGB CONC 33 g/dL (33-37); MEAN CORPUSCULAR VOLUME 84.7 fL (80-94); MONOCYTES % (AUTO) 20.7 % (1.7-9.3); NEUTROPHILS # (AUTO) 2.8 K/uL (1.8-7.7); NEUTROPHILS % (AUTO) 61.2 % (42.2-75.2); PLATELET COUNT (AUTO) 209 K/uL (140-450); RED BLOOD CELL COUNT(AUTO) 5.02 MIL/uL (4.20-6.10); RED CELL DISTRIBUTION WIDTH 13.8 % (11.6-13.7); WHITE BLOOD COUNT (AUTO) 4.6 K/uL (4.8-10.8)
--- NOTE | 2020-03-18 13:20 | NUR ---
RSV, INFLUENZA SWABS DONE. HANDED TO CHRIS LEARY.
--- NOTE | 2020-03-18 13:20 | NUR ---
ANNE SWAB DONE. HANDED TO CHRIS LEARY
--- NOTE | 2020-03-18 13:21 | NUR ---
STRAIGHT CATH DONE TO COLLECT URINE SPECIMEN. SPECIMEN HANDED TO CHRIS LEARY.
[2020-03-18 13:39] LABS: APPEARANCE,URINE HAZY (CLEAR); BILIRUBIN,URINE NEGATIVE (NEGATIVE); BLOOD, URINE TRACE-I (NEGATIVE); COLOR,URINE YELLOW (YELLOW); LEUKOCYTE ESTERASE ,URINE 3+ (NEGATIVE); NITRITE, URINE NEGATIVE (NEGATIVE); PH,URINE 7.5 (5.0-9.0); UGLUCOSE NEGATIVE (NEGATIVE)
[2020-03-18 13:45] LABS: ALBUMIN 3.8 g/dL (3.4-5.0); ANION GAP 13.3 (8-16); CARBON DIOXIDE 25.1 mmol/L (21-32); CREATININE 0.7 mg/dL (0.6-1.3); POTASSIUM 4.4 mmol/L (3.5-5.1); TOTAL BILIRUBIN 0.2 mg/dL (0.0-1.0)
[2020-03-18 13:50] LABS: RBC,URINE 0-5 /HPF (0-5)
[2020-03-18 13:52] LABS: C-REACTIVE PROTEIN QUANT 2.5 mg/dL (0.0-0.9)
[2020-03-18 13:53] LABS: PROTHROMBIN TIME 10.2 secs (10.8-13.4)
--- NOTE | 2020-03-18 14:09 | NUR ---
PT REFUSES TO OPEN MOUTH, DIFFICULT TO OBTAIN WESTPAC SWAB. PER DR MUNSON, NO NEED FOR WESTPAC SWAB.
[2020-03-18 14:13] LABS: LACTATE DEHYDROGENASE 169 U/L (85-227)
[2020-03-18 14:27] LABS: RSV NEGATIVE (NEGATIVE)
[2020-03-18] MEDS: LEVOFLOXACIN 500 MG/D5W PREMIX 100 ML IV ONE (14:55)
--- NOTE | 2020-03-18 15:28 | NUR ---
[facility]OR[facility] CONTACTED PT TRANSPORT FOR HEAD CHARGER. ETA 5:30PM
--- NOTE | 2020-03-18 16:33 | NUR ---
GISELLE FROM [facility] CALLED TO UPDATE THAT [facility] WILL BE PICKING THE PATIENT UP AT [phone] AND NOT THE EARLIER STATED TIME OF 1729.GISELLE FROM [facility] CALLED TO UPDATE THAT [facility] WILL BE PICKING THE PATIENT UP AT AND NOT THE EARLIER STATED TIME OF 1729.
[2020-03-18 18:50] VITALS: BP 132/79
--- NOTE | 2020-03-18 18:55 | NUR ---
MOVED TO CHAIR C
--- NOTE | 2020-03-18 19:00 | NUR ---
RECEIVED REPORT FROM CHRIS PAUL. ASSUMED CARE. PT STABLE AND IN NO DISTRESS AT THIS TIME.
--- NOTE | 2020-03-18 20:33 | NUR ---
[facility] AT [facility]
--- NOTE | 2020-03-18 20:37 | NUR ---
Patient discharged with v/s stable. Written and verbal after care instructions given and explained. Patient alert, oriented and verbalized understanding of instructions. Ambulance Transport with [facility]. All questions addressed prior to discharge. ID band removed. Patient advised to follow up with PMD. Rx of CIPRO given. Patient educated on indication of medication including possible reaction and side effects. Opportunity to ask questions provided and answered.
--- NOTE | 2020-03-18 20:43 | NUR ---
CALLED [facility] S/W JULIO TO INFORM HER THAT THE PT WAS EN ROUTE TO FACILITY.
--- NOTE | 2020-03-19 16:17 | NUR ---
Covid results received from lab. Results = POSITIVE. Hard copy requested from lab and placed in infection controls mailbox.
== END 2020-03-18 20:37 | disposition home or self-care (01) ==
LOC: MED 12:12
DX: N39.0 Urinary tract infection, site not specified (principal); Z20.828 Contact with and (suspected) exposure to other viral communicable diseases; J45.909 Unspecified asthma, uncomplicated; E03.9 Hypothyroidism, unspecified; I50.9 Heart failure, unspecified; Z86.73 Personal history of transient ischemic attack (TIA), and cerebral infarction without residual deficits; Z79.899 Other long term (current) drug therapy; Z88.8 Allergy status to other drugs, medicaments and biological substances; Z88.0 Allergy status to penicillin; Z88.1 Allergy status to other antibiotic agents; Z88.2 Allergy status to sulfonamides; Z91.012 Allergy to eggs
CPT/HCPCS: 36415; 36600; 71045; 80053; 81001; 82550; 82728; 82803; 83605; 83615; 83880; 84484; 85025; 85379; 85384; 85610; 85730; 86140; 87040; 87420; 87426; 87804; 93005; 96360; 99285; J1956; U0003

== ENCOUNTER 2020-07-25 14:27 | Emergency (ER) | payer OTHER, MEDICAID ==
[~2020-07-25] VITALS: Ht 154.9 cm; Wt 61.2 kg
--- NOTE | 2020-07-25 14:27 | NUR ---
DONTA ORR FROM [facility] AND PLACED IN BED 10.
[2020-07-25 14:34] VITALS: BP 138/57
[2020-07-25] MEDS ORDERED: LEVOFLOXACIN 500 MG/D5W PREMIX 100 ML IV ONE (14:40)
[2020-07-25] MEDS ORDERED: NACL 0.9% 1,000 ML IV SCH (14:40)
--- NOTE | 2020-07-25 14:47 | NUR ---
PT TAKEN TO CT VIA KELLI
--- NOTE | 2020-07-25 14:58 | NUR ---
Patient returned from CT scan/x-ray. RN reevaluating the patient at bedside.
--- NOTE | 2020-07-25 15:35 | NUR ---
ANNE SWAB COLLECTED AND GIVEN TO ZION MOYER.
[2020-07-25 15:48] LABS: BASOPHILS % (AUTO) 0.7 % (0.0-2.0); EOSINOPHILS # (AUTO) 0.1 K/uL (0-0.4); HEMATOCRIT 42.5 % (36-52); HEMOGLOBIN 13.8 g/dL (12.0-18.0); LYMPHOCYTES # (AUTO) 1.3 K/uL (2.0-11.5); LYMPHOCYTES % (AUTO) 19.3 % (20.5-51.1); MEAN CORPUSCULAR HEMOGLOBIN 27 pg (27-31); MEAN CORPUSCULAR HGB CONC 33 g/dL (33-37); MEAN CORPUSCULAR VOLUME 83.8 fL (80-94); MONOCYTES # (AUTO) 0.7 K/uL (0.8-1.0); MONOCYTES % (AUTO) 9.9 % (1.7-9.3); NEUTROPHILS # (AUTO) 4.8 K/uL (1.8-7.7); NEUTROPHILS % (AUTO) 69.1 % (42.2-75.2); PLATELET COUNT (AUTO) 226 K/uL (140-450); RED BLOOD CELL COUNT(AUTO) 5.08 MIL/uL (4.20-6.10); RED CELL DISTRIBUTION WIDTH 13.7 % (11.6-13.7)
[2020-07-25 15:51] LABS: APPEARANCE,URINE CLEAR (CLEAR); BILIRUBIN,URINE NEGATIVE (NEGATIVE); BLOOD, URINE NEGATIVE (NEGATIVE); COLOR,URINE YELLOW (YELLOW); LEUKOCYTE ESTERASE ,URINE 2+ (NEGATIVE); NITRITE, URINE POSITIVE (NEGATIVE); UGLUCOSE NEGATIVE (NEGATIVE)
[2020-07-25 15:57] LABS: ALBUMIN 3.7 g/dL (3.4-5.0); ANION GAP 12.3 (8-16); CARBON DIOXIDE 26.8 mmol/L (21-32); CREATININE 0.7 mg/dL (0.6-1.3); POTASSIUM 5.1 mmol/L (3.5-5.1); TOTAL BILIRUBIN 0.5 mg/dL (0.0-1.0)
[2020-07-25 16:07] LABS: RBC,URINE 11-20 (MOD) /HPF (0-5); WBC,URINE 0-5 /HPF (0-5)
[2020-07-25] MEDS ORDERED: DOXYCYCLINE 100 MG in DEXTROSE 5% 100 ML IV SCH (16:15)
[2020-07-25] MEDS ORDERED: DOXYCYCLINE 100 MG VIAL IV ONE (16:27)
--- NOTE | 2020-07-25 16:40 | NUR ---
Per Dr. Ma, spoke to June from patient's board and care. Per June, she was concerned with possible DVT and will take the patient back once he is stable. Dr. Ma notified and aware.
[2020-07-25] MEDS ORDERED: DOXY100T9 GT (16:58)
--- NOTE | 2020-07-25 17:22 | NUR ---
Called and spoke to Tata to inform her of patient's discharge plan, transportation arrangement and what medications patient has been prescribed. Tata verbalized understanding and had no further questions or concerns. Transportation pending for 1830.
--- NOTE | 2020-07-25 19:02 | NUR ---
[facility] at bedside.
[2020-07-25 19:11] VITALS: BP 132/69
--- NOTE | 2020-07-25 19:11 | NUR ---
Patient discharged with v/s stable. Written and verbal after care instructions given and explained. Patient alert, oriented and verbalized understanding of instructions. Ambulance Transport with to board and assisted. All questions addressed prior to discharge. ID band removed. Patient advised to follow up with PMD. Rx of Doxycycline hyclate 100mg Oxybutynin chloride 5mg given. Patient educated on indication of medication including possible reaction and side effects. Opportunity to ask questions provided and answered.
== END 2020-07-25 19:11 ==
LOC: MED 14:27
DX: M70.41 Prepatellar bursitis, right knee (principal); R05 Cough; N39.0 Urinary tract infection, site not specified; J45.909 Unspecified asthma, uncomplicated; I50.9 Heart failure, unspecified; E07.9 Disorder of thyroid, unspecified; Z86.73 Personal history of transient ischemic attack (TIA), and cerebral infarction without residual deficits; Z88.0 Allergy status to penicillin; Z88.1 Allergy status to other antibiotic agents; Z88.2 Allergy status to sulfonamides; Z88.8 Allergy status to other drugs, medicaments and biological substances; Z79.899 Other long term (current) drug therapy; Z20.822 Contact with and (suspected) exposure to COVID-19
CPT/HCPCS: 36415; 70450; 71045; 80053; 81001; 83605; 83880; 84484; 85025; 87040; 87086; 87426; 93005; 96365; 96366; 96368; 99285; J1956; J3490; J7030; 87186; J7060

== ENCOUNTER 2021-05-19 23:04 | Emergency (ER) | payer OTHER, MEDICAID ==
[~2021-05-19] VITALS: Ht 160 cm; Wt 72.6 kg
[~2021-05-19 23:04] MED LIST changes: +DOXY100T9 GT; +ONDA-188 GT; -ONDA-24 GT
[2021-05-19 23:34] VITALS: BP 133/69
--- NOTE | 2021-05-19 23:37 | NUR ---
pt arrived to ER bed 02.
--- NOTE | 2021-05-20 | NUR ---
Dr. Alvares at bedside and replaced pt with new 20fr PEG.
--- NOTE | 2021-05-20 00:19 | NUR ---
XR at bedside.
--- NOTE | 2021-05-20 01:52 | NUR ---
CARLOS Cortez from [facility] to ask how pt will be pickup. sts he will call back to try to setup a transport.
--- NOTE | 2021-05-20 07:30 | NUR ---
RECEIVED PT IN [facility] NONVERBAL , PENDING DC BACK TO FACILITY. NAD. SAFETY MAINTAINED.
--- NOTE | 2021-05-20 08:15 | NUR ---
PT INCONTINENT OF URINE, CHANGED AND REPOSITIONED.
[2021-05-20 09:16] VITALS: BP 111/65
--- NOTE | 2021-05-20 09:16 | NUR ---
PT CAREGIVER AT BEDSIDE FOR DC HOME. PT STABLE ON DC.
== END 2021-05-20 09:11 | disposition home or self-care (01) ==
LOC: MED 23:04
DX: K94.23 Gastrostomy malfunction (principal); J45.909 Unspecified asthma, uncomplicated; I50.9 Heart failure, unspecified; E03.9 Hypothyroidism, unspecified; Z86.73 Personal history of transient ischemic attack (TIA), and cerebral infarction without residual deficits; Z79.899 Other long term (current) drug therapy; Z88.0 Allergy status to penicillin; Z88.1 Allergy status to other antibiotic agents; Z88.2 Allergy status to sulfonamides; Z88.8 Allergy status to other drugs, medicaments and biological substances; Z91.012 Allergy to eggs
CPT/HCPCS: 43762; 74240; 99285; Q0092

== ENCOUNTER 2021-08-11 08:46 | Emergency (ER) | payer OTHER, MEDICAID ==
[~2021-08-11] VITALS: Ht 167.6 cm; Wt 63.5 kg
[~2021-08-11 08:46] MED LIST changes: +CHOL100084 PO; -VITD1000 PO
[2021-08-11 08:51] VITALS: BP 133/76
--- NOTE | 2021-08-11 09:00 | NUR ---
AT PT BEDSIDE
--- NOTE | 2021-08-11 09:15 | NUR ---
XR AT PT BEDSIDE
--- NOTE | 2021-08-11 09:15 | NUR ---
61 Y/O MALE BIBA FROM [facility] DUE TO EXPERINCING WET COUGH. PT CURRENTLY SATING 94% RA. LUNGS CLEAR THROUGHOUT. VSS. MONITOR IN PLACE. BED IN LOWEST POSITION, BED RAIL X1. PMH: CP, HYDROCEPHALUS, SEZIURE, HYPOTHYRIOD, MENTAL RETARDATION ALLERGIES: KELFEX, BACTRIM
--- NOTE | 2021-08-11 09:25 | NUR ---
TOM ANNE/INFLUENZA SWABS WALKED TO LAB
[2021-08-11] MEDS ORDERED: FUROSEMIDE 40 MG TAB GT ONE (09:45)
[2021-08-11] MEDS ORDERED: CRUSHER, PILL MC ONE (10:06)
[2021-08-11] MEDS ORDERED: FURO-570 PO (10:20)
--- NOTE | 2021-08-11 10:33 | NUR ---
SPOKE WITH FAITH, CHARGE NURSE FROM [facility]. INFORMED PT THAT HE IS UP FOR DISCHARGE AND READY TO BE PICKED UP. STATED THAT SHE WILL COORDINATE TRANSPORTATION FOR P/U BY 12PM AND WILL CALL BACK TO CONFIRM.
--- NOTE | 2021-08-11 12:40 | NUR ---
Patient discharged with v/s stable. Written and verbal after care instructions given and explained. RX LASIX GIVEN. Ambulance Transport with to residential. All questions addressed prior to discharge. Advised to follow up with PMD.
== END 2021-08-11 12:40 ==
LOC: MED 08:46
DX: R05.9 Cough, unspecified (principal); Z20.822 Contact with and (suspected) exposure to COVID-19; R09.89 Other specified symptoms and signs involving the circulatory and respiratory systems; J45.909 Unspecified asthma, uncomplicated; I50.9 Heart failure, unspecified; E03.9 Hypothyroidism, unspecified; Z86.73 Personal history of transient ischemic attack (TIA), and cerebral infarction without residual deficits; Z98.890 Other specified postprocedural states; Z79.899 Other long term (current) drug therapy; Z88.0 Allergy status to penicillin; Z88.1 Allergy status to other antibiotic agents; Z88.2 Allergy status to sulfonamides; Z91.012 Allergy to eggs
CPT/HCPCS: 71045; 87426; 87804; 99284; Q0092